=== PATIENT | male | born 1955 ===

== ENCOUNTER 2020-09-07 11:01 | Outpatient (REF) | payer MEDICARE, MEDICAID, SELFPAY | END 2020-09-07 11:02 | disposition home or self-care (01) | LOC: HO.LAB 11:01 | PROVIDERS: Visit Provider Internal Medicine | DX: Z20.828 Contact with and (suspected) exposure to other viral communicable diseases (principal) | CPT/HCPCS: C9803; U0003 ==

== ENCOUNTER 2020-09-21 13:38 | Outpatient (REF) | payer MEDICARE, MEDICAID, SELFPAY | END 2020-09-21 13:39 | disposition home or self-care (01) | LOC: HO.LAB 13:38 | PROVIDERS: Visit Provider Internal Medicine | DX: Z20.828 Contact with and (suspected) exposure to other viral communicable diseases (principal) | CPT/HCPCS: C9803; U0003 ==

== ENCOUNTER 2020-10-04 17:29 | Outpatient (REF) | payer MEDICARE, MEDICAID, SELFPAY | END 2020-10-04 17:30 | disposition home or self-care (01) | LOC: HO.LAB 17:29 | PROVIDERS: Visit Provider Internal Medicine | DX: Z20.822 Contact with and (suspected) exposure to COVID-19 (principal) | CPT/HCPCS: 36415; C9803; U0003 ==

== ENCOUNTER 2020-10-25 10:46 | Outpatient (REF) | payer MEDICARE, MEDICAID, SELFPAY | END 2020-10-25 10:47 | disposition home or self-care (01) | LOC: HO.LAB 10:46 | PROVIDERS: Visit Provider Internal Medicine | DX: Z20.822 Contact with and (suspected) exposure to COVID-19 (principal) | CPT/HCPCS: 36415; C9803; U0003; U0005 ==

== ENCOUNTER 2020-11-05 10:30 | Outpatient (REF) | payer MEDICARE, MEDICAID, SELFPAY | END 2020-11-05 10:31 | disposition home or self-care (01) | LOC: HO.LAB 10:30 | PROVIDERS: Visit Provider Internal Medicine | DX: Z20.822 Contact with and (suspected) exposure to COVID-19 (principal) | CPT/HCPCS: 36415; C9803; U0003; U0005 ==

== ENCOUNTER 2020-11-12 10:02 | Outpatient (REF) | payer MEDICARE, MEDICAID, SELFPAY | END 2020-11-12 10:03 | disposition home or self-care (01) | LOC: HO.LAB 10:02 | PROVIDERS: Visit Provider Internal Medicine | DX: Z20.822 Contact with and (suspected) exposure to COVID-19 (principal) | CPT/HCPCS: 36415; C9803; U0003; U0005 ==

== ENCOUNTER 2020-12-02 10:17 | Outpatient (REF) | payer MEDICARE, MEDICAID, SELFPAY | END 2020-12-02 10:18 | disposition home or self-care (01) | LOC: HO.LAB 10:17 | PROVIDERS: Visit Provider Internal Medicine | DX: Z20.822 Contact with and (suspected) exposure to COVID-19 (principal) | CPT/HCPCS: 36415; C9803; U0003; U0005 ==

== ENCOUNTER 2020-12-15 11:43 | Outpatient (REF) | payer MEDICARE, MEDICAID, SELFPAY | END 2020-12-15 11:44 | disposition home or self-care (01) | LOC: HO.LAB 11:43 | PROVIDERS: Visit Provider Internal Medicine | DX: Z20.822 Contact with and (suspected) exposure to COVID-19 (principal) | CPT/HCPCS: 36415; C9803; U0003; U0005 ==

== ENCOUNTER 2021-01-03 17:37 | Emergency (ER) | payer MEDICARE, MEDICAID, SELFPAY ==
--- NOTE | ~2021-01-03 | XR_ITS ---
EXAMINATION: XR CHEST CLINICAL INFORMATION: Epigastric pain. COMPARISON: 11/13/2019 chest radiographs. TECHNIQUE: Frontal view of the chest was obtained. FINDINGS: The lungs are clear. The heart and mediastinal structures are unremarkable. Post surgical changes are seen in the right clavicle without interval change. XR/XR chest 1V IMPRESSION: No acute cardiopulmonary process.
[2021-01-03 20:05] VITALS: BP 178/82; PULSE 51; RESP 18; TEMP 37.1; O2SAT 98; BMI 30.7
--- NOTE | 2021-01-03 20:09 | ECG_ITS ---
Test Reason : WEAKNESS Blood Pressure : / mmHG Vent. Rate : 059 BPM Atrial Rate : 059 BPM P-R Int : 128 ms QRS Dur : 092 ms QT Int : 404 ms P-R-T Axes : 045 -09 027 degrees QTc Int : 399 ms Sinus bradycardia Minimal voltage criteria for LVH, may be normal variant Borderline ECG When compared with ECG of 29-MAR-2005 19:44, Nonspecific T wave abnormality, improved in Lateral leads Referred By: Generic ED Physician Electronically Signed By:ANNA LANGLEY
[2021-01-03 22:12] VITALS: BP 162/68; PULSE 61; RESP 16; O2SAT 99
--- NOTE | 2021-01-03 22:30 | ED.GENADULT ---
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 Patient declined any exertional chest pain or exertional dyspnea. No dizziness, no weakness or numbness anywhere. Patient recently received the 1st dose of COVID vaccination in the right arm with no problem. Patient also complained of epigastric pain for the past week that he feels like acid reflux, patient currently has no symptoms. Related Data Allergies Allergy/AdvReac Type Severity Reaction Status Date / Time diphenhydramine Allergy Unknown UNKNOWN Verified 01/03/21 20:04 [From BENADRYL] penicillin G [PENICILLIN G] Allergy Unknown HIVES Verified 01/03/21 20:04 Review of Systems Review of Systems: All other systems are reviewed and are negative Constitutional: Reports as per HPI and Reports no additional constitutional complaints Eyes: Reports as per HPI and Reports no additional eye complaints Reports system reviewed and no additional complaints, except as documented Cardiovascular: Reports as per HPI and Reports no additional cardiovascular complaints Respiratory: Reports as per HPI and Reports no additional respiratory complaints Gastrointestinal: Reports as per HPI and Reports no additional gastrointestinal complaints Genitourinary: Reports no additional female genitourinary complaints Musculoskeletal: Reports no additional musculoskeletal complaints Skin/Breast: Reports system reviewed and no additional complaints, except as docu Psychiatric: Reports no additional psychiatric complaints Endocrine: Reports no additional endocrine complaints Hematologic/Lymphatic: Reports no additional hematologic/lymphatic complaints Allergic/Immunologic: Reports no additional allergic/immunologic complaints Reports system reviewed and no additional complaints, except as documented and Reports Abnormal speech present [facility] [place] Past Medical History Medical History (Updated 01/04/21 @ 00:29 by Chiki Freedman MD) Arthritis Asthma Fibromyalgia Gastritis Glaucoma Prostate cancer Social History Social History Alcohol intake: never Smoking Status: Never smoker Use of substances other than those prescribed or required for medical reasons: No Advance Directives: No Advance Directives Information Provided: Yes Physical Exam Vital Signs: Vital Signs: Last Vital Signs Temp 98.7 F 01/03/21 20:05 Pulse 61 01/03/21 22:12 Resp 16 01/03/21 22:12 BP 162/68 H 01/03/21 22:12 Pulse Ox 99 01/03/21 22:12 Body Mass Index 30.7 Vital signs have been reviewed as appeared to be correct. Blood pressure elevated. Heart rate normal. Respiration rate normal. Temperature normal. Oxygen saturation normal. Appearance: Alert. Oriented X3. No acute distress. Head: Normal external exam. Normocephalic. Atraumatic. No Kim signs noted. No raccoon eyes noted Eyes: PERRLA. EOMI. Conjunctiva and sclera normal. Eyelids normal. ENT: TM's Normal. Pharynx normal. Uvula midline. Moist mucous membranes. No trismus noted. No drooling noted. No muffled voice noted. Neck: Normal inspection. Neck supple. FROM. No adenopathy. Thyroid Normal. No meningeal signs. No neck mass noted. CVS: Normal heart rate and rhythm. Heart sound normal. No murmurs noted. Pulses normal throughout. Respiratory: No respiratory distress. Painless inspiration. Breath sounds normal. No wheezes/rales/rhonchi noted. Chest nontender. No accessory muscle usage noted or decreased air movement noted. Abdomen: Soft and nontender. Bowel sounds normal in all 4 quadrants. No distention noted. No organomegaly noted. No visible injury noted. Back: No CVA tenderness. Full range of motion noted. Skin: Skin warm and dry. Normal skin color. Normal skin turgor. No rashes/lesions/lacerations noted. Extremities: No lower extremity edema. Extremities exhibit normal range of motion. Extremities nontender. Neuro: Oriented X 3. No motor deficit. No sensory deficit. Reflexes normal. Medical Decision Making MDM Narrative Medical decision making narrative: 65-year-old male came in for evaluation of patient will lose his voice if he talks for a long time or in the loud tone. Patient has unremarkable neuro exam. Labs are unremarkable. Will discharge to follow-up with PCP. 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 Lab Data Lab results reviewed: Yes I reviewed the patient's lab results. Result diagrams: 01/03/21 22:25 01/03/21 22:25 Labs: Lab Results 01/03/21 01/03/21 01/03/21 Range/Units 22:25 22:25 22:25 WBC 4.3 L (4.8-10.8) X10*3/uL RBC 5.43 (4.60-5.80) X10*6/uL Hgb 16.3 (14.0-18.0) g/dl Hct 48.1 (42-52) % MCV 88.6 (80-98) fL MCH 30.0 (27.0-33.0) pg MCHC 33.9 (31.0-36.0) g/dl RDW 13.2 (11.0-16.0) % Plt Count 205 (160-400) X10*3/uL MPV 9.5 (9.4-12.4) fL Immature Gran % (Auto) 0.2 (0.0-0.4) % Neut % (Auto) 29.0 L (45-73) % Lymph % (Auto) 60.6 H (20-40) % [place] % (Auto) 7.9 (2-11) % Eos % (Auto) 1.6 (0-4) % Baso % (Auto) 0.7 (0-2) % Lymph # (Auto) 2.6 (1.2-4.9) X10*3/uL [place] # (Auto) 0.3 (0.1-1.2) X10*3/uL Eos # (Auto) 0.1 (0.0-0.4) X10*3/uL Baso # (Auto) 0.0 (0.0-0.2) X10*3/uL Abs Immat Gran (auto) 0.01 (0.00-0.03) X10*3/uL Absolute Neuts (auto) 1.3 L (2.0-8.3) X10*3/uL Absolute Nucleated RBC 0.000 (0.0-0.012) X10*3/uL Nucleated RBC % (auto) 0.0 (0.0-0.2) /100WBC Smear Tech's Comments VERIFIED Hold Blue Top SEE NOTE Sodium 140 (135-145) mmol/L Potassium 4.6 (3.3-5.1) mmol/L Chloride 104 (96-108) mmol/L Carbon Dioxide 28 (22-29) mmol/L Anion Gap 13 (12-20) BUN 19 H (9-16) mg/dL Creatinine 0.87 (0.5-1.4) mg/dL Estim Creat Clear Calc 83.2 Estimated GFR > 60 Random Glucose 91 (60-115) mg/dL Calcium 9.0 (8.4-10.2) mg/dL Total Bilirubin (0.0-1.0) mg/dL Direct Bilirubin (0.0-0.5) mg/dL AST (5-37) U/L ALT (0-40) U/L Alkaline Phosphatase (39-117) U/L Troponin I High Sens (<3.5-35.0) ng/L B-Natriuretic Peptide (<100) pg/mL Total Protein (6.5-8.0) g/dL Albumin (3.5-5.0) g/dL Lipase (8-78) U/L Coronavirus (PCR) (Negative) Influenza Type A (PCR) (Negative) Influenza Type B (PCR) (Negative) RSV RNA Qual (PCR) (Negative) 01/03/21 01/03/21 01/03/21 Range/Units 22:25 22:25 22:25 WBC (4.8-10.8) X10*3/uL RBC (4.60-5.80) X10*6/uL Hgb (14.0-18.0) g/dl Hct (42-52) % MCV (80-98) fL MCH (27.0-33.0) pg MCHC (31.0-36.0) g/dl RDW (11.0-16.0) % Plt Count (160-400) X10*3/uL MPV (9.4-12.4) fL Immature Gran % (Auto) (0.0-0.4) % Neut % (Auto) (45-73) % Lymph % (Auto) (20-40) % [place] % (Auto) (2-11) % Eos % (Auto) (0-4) % Baso % (Auto) (0-2) % Lymph # (Auto) (1.2-4.9) X10*3/uL [place] # (Auto) (0.1-1.2) X10*3/uL Eos # (Auto) (0.0-0.4) X10*3/uL Baso # (Auto) (0.0-0.2) X10*3/uL Abs Immat Gran (auto) (0.00-0.03) X10*3/uL Absolute Neuts (auto) (2.0-8.3) X10*3/uL Absolute Nucleated RBC (0.0-0.012) X10*3/uL Nucleated RBC % (auto) (0.0-0.2) /100WBC Smear Tech's Comments Hold Blue Top Sodium (135-145) mmol/L Potassium (3.3-5.1) mmol/L Chloride (96-108) mmol/L Carbon Dioxide (22-29) mmol/L Anion Gap (12-20) BUN (9-16) mg/dL Creatinine (0.5-1.4) mg/dL Estim Creat Clear Calc Estimated GFR Random Glucose (60-115) mg/dL Calcium (8.4-10.2) mg/dL Total Bilirubin 1.4 H (0.0-1.0) mg/dL Direct Bilirubin 0.5 (0.0-0.5) mg/dL AST 12 (5-37) U/L ALT 11 (0-40) U/L Alkaline Phosphatase 65 (39-117) U/L Troponin I High Sens < 3.5 (<3.5-35.0) ng/L B-Natriuretic Peptide 32 (<100) pg/mL Total Protein 7.2 (6.5-8.0) g/dL Albumin 4.3 (3.5-5.0) g/dL Lipase 106 H (8-78) U/L Coronavirus (PCR) NEGATIVE (Negative) Influenza Type A (PCR) NEGATIVE (Negative) Influenza Type B (PCR) NEGATIVE (Negative) RSV RNA Qual (PCR) NEGATIVE (Negative) Imaging Data Chest x-ray: Radiologist's impression: No acute cardiopulmonary process. ECG Data Interpretation: Sinus bradycardia at 59 beats per minutes, LVH, normal intervals, nonspecific flattening of T-wave. Discharge Plan Discharge Clinical Impression: Loss of voice Patient Disposition: Home, Self-Care Instructions: Dyspnea (ED) Referrals: Physician,Unknown [Primary Care Provider] - 2 days
[2021-01-03 22:38] LABS: Basophils Percent Auto 0.7 % (0-2); Eosinophils Absolute Auto 0.1 X10*3/uL (0.0-0.4); Eosinophils Percent Auto 1.6 % (0-4); Hematocrit 48.1 % (42-52); Hemoglobin 16.3 g/dl (14.0-18.0); Imm Gran Abs Auto 0.01 X10*3/uL (0.00-0.03); Imm Gran Pct Auto 0.2 % (0.0-0.4); Lymphocytes Absolute Auto 2.6 X10*3/uL (1.2-4.9); Lymphocytes Percent Auto 60.6 % (20-40); MANUAL DIFF FLAG SCAN; Mean Corpuscular HGB Conc 33.9 g/dl (31.0-36.0); Mean Corpuscular Volume 88.6 fL (80-98); Mean Platelet Volume 9.5 fL (9.4-12.4); Monocytes Absolute Auto 0.3 X10*3/uL (0.1-1.2); Monocytes Percent Auto 7.9 % (2-11); Neutrophils Absolute Auto 1.3 X10*3/uL (2.0-8.3); Platelet Count 205 X10*3/uL (160-400); Red Blood Count 5.43 X10*6/uL (4.60-5.80); Red Cell Distribution Width 13.2 % (11.0-16.0); SCAN SMEAR FLAG 1; White Blood Count 4.3 X10*3/uL (4.8-10.8)
--- NOTE | 2021-01-03 23:16 | PC.NURSE ---
Pt is currently resting in bed. Pt denies complaints and all symptoms. VSS, skin w/p/d, ambulates w/ steady and mitchell gait, no apparent distress is noted. Pending lab results.
[2021-01-03 23:17] LABS: Influenza A PCR NEGATIVE (Negative); Influenza B PCR NEGATIVE (Negative); Resp Syncy Virus RNA Qual PCR NEGATIVE (Negative); SARS COV2 PCR INHOUSE NEGATIVE (Negative)
[2021-01-03 23:26] LABS: SLIDE REVIEW VERIFIED
[2021-01-03 23:56] LABS: Anion Gap 13 (12-20); Blood Urea Nitrogen 19 mg/dL (9-16); Carbon Dioxide 28 mmol/L (22-29); Chloride 104 mmol/L (96-108); Creatinine Clr Calc Pharmacy 83.2; Estimated Glomerular Filt Rate > 60; Glucose Random 91 mg/dL (60-115); Potassium 4.6 mmol/L (3.3-5.1); Sodium 140 mmol/L (135-145)
[2021-01-03 23:59] LABS: Alanine Aminotransferase 11 U/L (0-40); Albumin Level 4.3 g/dL (3.5-5.0); Alkaline Phosphatase 65 U/L (39-117); Aspartate Amino Transferase 12 U/L (5-37); Bilirubin Direct 0.5 mg/dL (0.0-0.5); Bilirubin Total 1.4 mg/dL (0.0-1.0); Lipase 106 U/L (8-78); Total Protein 7.2 g/dL (6.5-8.0)
[2021-01-04 00:06] LABS: Troponin-I High Sensitivity < 3.5 ng/L (<3.5-35.0)
[2021-01-04 00:18] LABS: B Type Natriuretic Peptide 32 pg/mL (<100)
[2021-01-04 00:31] VITALS: BP 141/86; PULSE 61; RESP 16; O2SAT 97
[2021-01-04] MEDS: Acetaminophen 325 MG TABLET 650 MG PO (00:35)
== END 2021-01-04 00:39 | disposition home or self-care (01) ==
PROVIDERS: Emergency Provider Emergency Medicine
DX: R49.1 Aphonia (principal); Z20.822 Contact with and (suspected) exposure to COVID-19; R53.1 Weakness; R10.13 Epigastric pain; J45.909 Unspecified asthma, uncomplicated; Z85.46 Personal history of malignant neoplasm of prostate
CPT/HCPCS: 0241U; 36415; 71045; 80048; 80076; 83690; 83880; 84484; 85025; 93005; 99283; 99284

== ENCOUNTER 2021-01-06 13:18 | Outpatient (REF) | payer MEDICARE, MEDICAID, SELFPAY ==
[2021-01-06 14:13] LABS: COVID-19 Test Negative (Negative)
== END 2021-01-06 13:19 | disposition home or self-care (01) ==
LOC: HO.LAB 13:18
PROVIDERS: Visit Provider Internal Medicine
DX: Z20.822 Contact with and (suspected) exposure to COVID-19 (principal)
CPT/HCPCS: 36415; 87635; C9803

== ENCOUNTER 2021-01-10 08:21 | Outpatient (REF) | payer MEDICARE, MEDICAID, SELFPAY ==
[2021-01-10 08:57] LABS: COVID-19 Test Negative (Negative); IDNOW Serial# 55D5AD1C
== END 2021-01-10 08:22 | disposition home or self-care (01) ==
LOC: HO.LAB 08:21
PROVIDERS: Visit Provider Internal Medicine
DX: Z20.822 Contact with and (suspected) exposure to COVID-19 (principal)
CPT/HCPCS: 36415; 87635; C9803

== ENCOUNTER 2021-01-18 11:50 | Outpatient (REF) | payer MEDICARE, MEDICAID, SELFPAY ==
[2021-01-18 12:07] LABS: COVID-19 Test Negative (Negative)
== END 2021-01-18 11:51 | disposition home or self-care (01) ==
LOC: HO.LAB 11:50
PROVIDERS: Visit Provider Internal Medicine
DX: Z20.822 Contact with and (suspected) exposure to COVID-19 (principal)
CPT/HCPCS: 36415; 87635; C9803

== ENCOUNTER 2021-01-24 10:32 | Outpatient (REF) | payer MEDICARE, MEDICAID, SELFPAY | END 2021-01-24 10:33 | disposition home or self-care (01) | LOC: HO.LAB 10:32 | PROVIDERS: Visit Provider Internal Medicine | DX: Z20.822 Contact with and (suspected) exposure to COVID-19 (principal) | CPT/HCPCS: C9803; U0003; U0005 ==

== ENCOUNTER 2021-02-17 08:27 | Outpatient (REF) | payer MEDICARE, MEDICAID, SELFPAY ==
[2021-02-17 08:44] LABS: COVID-19 Test Negative (Negative); IDNOW Serial# 55D5AD1C
== END 2021-02-17 08:28 | disposition home or self-care (01) ==
LOC: HO.LAB 08:27
PROVIDERS: Visit Provider Internal Medicine
DX: Z20.822 Contact with and (suspected) exposure to COVID-19 (principal)
CPT/HCPCS: 36415; 87635; C9803

== ENCOUNTER 2021-02-22 13:12 | Outpatient (REF) | payer MEDICARE, MEDICAID, SELFPAY ==
[2021-02-22 13:34] LABS: COVID-19 Test Negative (Negative)
== END 2021-02-22 13:13 | disposition home or self-care (01) ==
LOC: HO.LAB 13:12
PROVIDERS: Visit Provider Internal Medicine
DX: Z20.822 Contact with and (suspected) exposure to COVID-19 (principal)
CPT/HCPCS: 36415; 87635; C9803

== ENCOUNTER 2021-05-13 11:41 | Outpatient (REF) | payer MEDICARE, MEDICAID, SELFPAY | END 2021-05-13 11:42 | disposition home or self-care (01) | LOC: HO.LAB 11:41 | PROVIDERS: Visit Provider Internal Medicine | DX: Z20.822 Contact with and (suspected) exposure to COVID-19 (principal) | CPT/HCPCS: C9803; U0003; U0005 ==

== ENCOUNTER 2021-07-01 11:17 | Outpatient (REF) | payer MEDICARE, MEDICAID, SELFPAY ==
[2021-07-01 12:11] LABS: COVID-19 Test Negative (Negative)
== END 2021-07-01 11:18 | disposition home or self-care (01) ==
LOC: HO.LAB 11:17
PROVIDERS: Visit Provider Internal Medicine
DX: Z20.822 Contact with and (suspected) exposure to COVID-19 (principal)
CPT/HCPCS: 36415; 87635; C9803

== ENCOUNTER 2021-07-18 11:31 | Outpatient (REF) | payer MEDICARE, MEDICAID, SELFPAY ==
[2021-07-18 12:11] LABS: COVID-19 Test Negative (Negative)
== END 2021-07-18 11:32 | disposition home or self-care (01) ==
LOC: HO.LAB 11:31
PROVIDERS: Visit Provider Internal Medicine
DX: Z20.822 Contact with and (suspected) exposure to COVID-19 (principal)
CPT/HCPCS: 36415; 87635; C9803

== ENCOUNTER 2021-08-04 14:41 | Outpatient (REF) | payer MEDICARE, MEDICAID, SELFPAY | END 2021-08-04 14:42 | disposition home or self-care (01) | LOC: HO.LAB 14:41 | PROVIDERS: PCP Internal Medicine Geriatric Medicine; Visit Provider Internal Medicine | DX: Z20.822 Contact with and (suspected) exposure to COVID-19 (principal) | CPT/HCPCS: C9803; U0003; U0005 ==

== ENCOUNTER 2021-08-05 08:11 | Emergency (ER) | payer MEDICARE, MEDICAID, SELFPAY ==
[2021-08-05 08:18] VITALS: BP 155/91; PULSE 75; RESP 16; TEMP 36.7; O2SAT 99; BMI 30.1
[2021-08-05 08:45] VITALS: BP 131/75; PULSE 73; RESP 14; TEMP 36.8; O2SAT 99
--- NOTE | 2021-08-05 08:46 | ED.GENADULT ---
HPI - General Adult General Chief complaint: General Medical Stated complaint: hbp Time Seen by Provider: 08/05/21 08:42 History of Present Illness HPI narrative: Patient is 65-year-old male presented today worry about his blood pressure being elevated. Patient took the blood pressure this morning was 150/107. Baseline is on amlodipine. Patient denies any fever chills. Complaining of mild headache from time to time. There is no change in vision is no focal weakness. He has no headache at this time. Patient denies any chest pain any shortness of breath any nausea any vomiting any focal weakness. He is from home. Related Data Allergies Allergy/AdvReac Type Severity Reaction Status Date / Time diphenhydramine Allergy Unknown UNKNOWN Verified 01/03/21 20:04 [From BENADRYL] penicillin G [PENICILLIN G] Allergy Unknown HIVES Verified 01/03/21 20:04 Review of Systems Review of Systems: No chest pain or shortness of breath or dizziness Yes all other systems are reviewed and are negative PMFSH Past Medical History Attestation statement: The following information was validated with the patient. Medical History Arthritis Asthma Fibromyalgia Gastritis Glaucoma Prostate cancer Social History Social History Alcohol intake: never Patient Tobacco Use Status: Never used Tobacco Use of substances other than those prescribed or required for medical reasons: No Advance Directives: No Physical Exam Vital Signs: Vital Signs: Last Vital Signs Temp 98.0 F 08/05/21 08:18 Pulse 75 08/05/21 08:18 Resp 16 08/05/21 08:18 BP 155/91 H 08/05/21 08:18 Pulse Ox 99 08/05/21 08:18 Body Mass Index 30.1 Appearance: Alert. Oriented X3. No acute distress. Eyes: Pupils equal, round and reactive to light. ENT: Pharynx normal. Neck: Normal inspection. Neck supple. No lymph nodes noted. No crepitus CVS: Normal heart rate and rhythm. Pulses normal. Normal S1 and S2 Respiratory: No respiratory distress. Breath sounds normal. No Wheezing. No rales Abdomen: Soft and nontender. No rigidity. No distention. good BS x4 Skin: Skin warm and dry. Normal skin color. Normal skin turgor. Extremities: No lower extremity edema. Neurovascular intact to all extremities. No Lacerations. No Rash Neuro: Oriented X 3. No motor deficit. No sensory deficit. Moving all extermities. No slurred speech Medical Decision Making MDM Narrative Medical decision making narrative: Well-appearing no acute distress. Lungs clear. Patient in stable condition. Blood pressure is normal. Is 155/91 on recheck was 147/87. Patient has no headache. Patient reassured and told to follow-up with his primary physician on an outpatient basis and get blood pressure recheck. In stable condition. Discharge Plan Discharge Clinical Impression: Hypertension Patient Disposition: Home, Self-Care Instructions: Hypertension (ED) Referrals: Name,MD Gwyn [Primary Care Provider] - 2 days
[2021-08-05 08:48] VITALS: BP 126/75; PULSE 69
--- NOTE | 2021-08-05 08:51 | PC.NURSE ---
pt reports that this morning when he took his blood pressure the bottom number was 105 . pt reports that he only took his b/p once. he is on Amlodipine and usually take it in the morning but did not take it this morning because he was concerned. Pt's b/p in ed 126/75. he denies sob/headache/dizziness/chest pain. no pain reported. no other complaints. Pt seen by Dr. Dozier and is medically cleared for discharge. pt alert and oriented, vss.
== END 2021-08-05 09:05 | disposition home or self-care (01) ==
PROVIDERS: Emergency Provider Emergency Medicine Emergency Medical Services; PCP Internal Medicine Geriatric Medicine
DX: I10 Essential (primary) hypertension (principal); J45.909 Unspecified asthma, uncomplicated
CPT/HCPCS: 99283

== ENCOUNTER 2021-08-16 15:27 | Emergency (ER) | payer MEDICARE, MEDICAID, SELFPAY ==
--- NOTE | ~2021-08-16 | CT_ITS ---
EXAMINATION: CT ANGIOGRAM OF THE CHEST WITH AND WITHOUT CONTRAST (CT PULMONARY ANGIOGRAM FOR PE) CLINICAL INFORMATION: Reason for Exam cp, + dimer COMPARISON: None TECHNIQUE: Prior to contrast administration, noncontrast localization images were obtained. Subsequently, multidetector volumetric imaging was performed from the thoracic inlet to below the diaphragms following the administration of 66 mL Omnipaque 350 intravenous contrast. No contrast reaction reported Sagittal, coronal, and MIP oblique sagittal reformatted images were obtained on the CT workstation, uploaded to PACS, and reviewed. This CT examination was performed using dose optimization techniques as appropriate, variously including the following: *Automated exposure control *Adjustment of mA and/or kV according to patient size (this includes techniques or standardized protocols for targeted exams where dose is matched to indication/reason for exam; i.e. extremities or head) *Use of iterative reconstruction technique Total exam dose-length 330 product 3:30 mGy-cm FINDINGS: QUALITY OF STUDY/CONTRAST BOLUS: Slightly less than optimal and significant motion artifact is present PULMONARY ARTERIES: No central or large segmental pulmonary emboli. THORACIC AORTA: No aneurysm or dissection. LUNG: No focal consolidation, nodules or masses. Left basilar atelectasis is present. PLEURA: No pleural effusion or pneumothorax. MEDIASTINUM: There is mild cardiac enlargement. No pericardial effusion. No hilar or mediastinal lymphadenopathy. No evidence of septal bowing or right heart strain. CHEST WALL/AXILLA: No axillary or internal mammary lymphadenopathy. OSSEOUS STRUCTURES: No acute or suspicious osseous abnormality. UPPER ABDOMEN: Unremarkable. No reflux of contrast into the hepatic veins to suggest elevated right heart pressures. CT/CT angio chest PE protocol IMPRESSION: No definite evidence of pulmonary emboli. VTE: negative
--- NOTE | ~2021-08-16 | XR_ITS ---
EXAMINATION: XR CHEST CLINICAL INFORMATION: Chest pain COMPARISON: 01/03/2021 TECHNIQUE: 2 views of the chest were obtained. FINDINGS: Normal heart size. Tortuous thoracic aorta. Adequate expansion of the lungs. No focal consolidation. No pleural effusion or pneumothorax. No acute osseous abnormality. Degenerative changes of the spine and bilateral shoulders. There is postsurgical change of the right clavicle, stable since prior study. XR/XR chest 2V IMPRESSION: No acute disease within the chest.
--- NOTE | 2021-08-16 15:29 | ECG_ITS ---
Test Reason : chest pain Blood Pressure : / mmHG Vent. Rate : 082 BPM Atrial Rate : 082 BPM P-R Int : 134 ms QRS Dur : 090 ms QT Int : 384 ms P-R-T Axes : 041 -24 036 degrees QTc Int : 448 ms Normal sinus rhythm Left axis deviation Nonspecific T wave abnormality RSR' or QR pattern in V1 suggests right ventricular conduction delay Abnormal ECG When compared with ECG of 03-JAN-2021 20:39, Heart rate has increased Referred By: Generic ED Physician Electronically Signed By:REMINGTON CLAIRE MD
[2021-08-16 16:57] VITALS: BP 145/87; PULSE 68; RESP 18; TEMP 36.8; O2SAT 98; BMI 29.4
--- NOTE | 2021-08-16 16:59 | ED.CHESTPAIN ---
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 Medical History Arthritis Asthma Fibromyalgia Gastritis Glaucoma Prostate cancer Social History Social History Alcohol intake: never Patient Tobacco Use Status: Never used Tobacco Physical Exam Vital Signs: Vital Signs: Last Vital Signs Temp 98.2 F 08/16/21 16:57 Pulse 68 08/16/21 16:57 Resp 18 08/16/21 16:57 BP 145/87 H 08/16/21 16:57 Pulse Ox 98 08/16/21 16:57 Body Mass Index 29.4 Appearance: Alert. Oriented X3. No acute distress. Eyes: Pupils equal, round and reactive to light. ENT: Pharynx normal. dried bilateral nares Neck: Normal inspection. Neck supple. CVS: Normal heart rate and rhythm. Pulses normal. Chest: ttp along sternum reproduces pain Respiratory: No respiratory distress. Breath sounds normal. Abdomen: Soft and nontender. Skin: Skin warm and dry. Normal skin color. Normal skin turgor. Extremities: No lower extremity edema. No calf ttp Neuro: Oriented X 3. No motor deficit. No sensory deficit. Course Course Course Narrative: THIS IS A RAPID MEDICAL EXAM DEFERRED ADDITIONAL HPI, ROS, PE TO PRIMARY PROVIDER: 65 yo male with hx of HTN, asthma, prostate cancer here with chest pain for 2 days - aching in center of chest that radiates to the back he has no associated symptoms other than dizziness, moving and touching it makes his pain worse. He also notes he has a runny nose. He is vaccinated. No prior cardiac issues in the past. At this time labs, EKG, troponin ordered, his chest pain is atypical he has no hypoxia/tachycardia/signs of DVT to suggest PE MDM - Chest Pain Lab Data Result diagrams: 08/16/21 19:04 08/16/21 19:04 Labs: Lab Results 08/16/21 08/16/21 08/16/21 Range/Units 19:04 19:04 19:04 WBC 3.6 L (4.8-10.8) X10*3/uL RBC 4.97 (4.60-5.80) X10*6/uL Hgb 15.6 (14.0-18.0) g/dl Hct 43.2 (42.0-52.0) % MCV 86.9 (80.0-98.0) fL MCH 31.4 (27.0-33.0) pg MCHC 36.1 H (31.0-36.0) g/dl RDW 12.8 (11.0-16.0) % Plt Count 193 (160-400) X10*3/uL MPV 9.2 L (9.4-12.4) fL Immature Gran % (Auto) 0.3 (0.0-0.4) % Neut % (Auto) 33.9 L (45-73) % Lymph % (Auto) 50.8 H (20-40) % [place] % (Auto) 8.6 (2-11) % Eos % (Auto) 5.6 H (0-4) % Baso % (Auto) 0.8 (0-2) % Lymph # (Auto) 1.8 (1.2-4.9) X10*3/uL [place] # (Auto) 0.3 (0.1-1.2) X10*3/uL Eos # (Auto) 0.2 (0.0-0.4) X10*3/uL Baso # (Auto) 0.0 (0.0-0.2) X10*3/uL Abs Immat Gran (auto) 0.01 (0.00-0.03) X10*3/uL Absolute Neuts (auto) 1.2 L (2.0-8.3) x10*3/uL Absolute Nucleated RBC 0.000 (0.0-0.012) X10*3/uL Nucleated RBC % (auto) 0.0 (0.0-0.2) /100WBC D-Dimer High Sensitivty NG/ML Sodium 142 (135-145) mmol/L Potassium 4.1 (3.3-5.1) mmol/L Chloride 106 (96-108) mmol/L Carbon Dioxide 29 (22-29) mmol/L Anion Gap 11 L (12-20) BUN 16 (9-16) mg/dL Creatinine 0.77 (0.5-1.4) mg/dL Estim Creat Clear Calc 92.1 Estimated GFR > 60 Random Glucose 99 (60-115) mg/dL Calcium 9.1 (8.4-10.2) mg/dL Total Bilirubin 1.1 H (0.0-1.0) mg/dL Direct Bilirubin 0.5 (0.0-0.5) mg/dL AST 15 (5-37) U/L ALT 11 (0-40) U/L Alkaline Phosphatase 56 (39-117) U/L Troponin I High Sens 4.5 (<3.5-35.0) ng/L Total Protein 7.0 (6.5-8.0) g/dL Albumin 4.2 (3.5-5.0) g/dL COVID-19 (ROHIT) (Negative) COVID-19 Clin Com 08/16/21 08/16/21 Range/Units 19:04 19:04 WBC (4.8-10.8) X10*3/uL RBC (4.60-5.80) X10*6/uL Hgb (14.0-18.0) g/dl Hct (42.0-52.0) % MCV (80.0-98.0) fL MCH (27.0-33.0) pg MCHC (31.0-36.0) g/dl RDW (11.0-16.0) % Plt Count (160-400) X10*3/uL MPV (9.4-12.4) fL Immature Gran % (Auto) (0.0-0.4) % Neut % (Auto) (45-73) % Lymph % (Auto) (20-40) % [place] % (Auto) (2-11) % Eos % (Auto) (0-4) % Baso % (Auto) (0-2) % Lymph # (Auto) (1.2-4.9) X10*3/uL [place] # (Auto) (0.1-1.2) X10*3/uL Eos # (Auto) (0.0-0.4) X10*3/uL Baso # (Auto) (0.0-0.2) X10*3/uL Abs Immat Gran (auto) (0.00-0.03) X10*3/uL Absolute Neuts (auto) (2.0-8.3) x10*3/uL Absolute Nucleated RBC (0.0-0.012) X10*3/uL Nucleated RBC % (auto) (0.0-0.2) /100WBC D-Dimer High Sensitivty 370 NG/ML Sodium (135-145) mmol/L Potassium (3.3-5.1) mmol/L Chloride (96-108) mmol/L Carbon Dioxide (22-29) mmol/L Anion Gap (12-20) BUN (9-16) mg/dL Creatinine (0.5-1.4) mg/dL Estim Creat Clear Calc Estimated GFR Random Glucose (60-115) mg/dL Calcium (8.4-10.2) mg/dL Total Bilirubin (0.0-1.0) mg/dL Direct Bilirubin (0.0-0.5) mg/dL AST (5-37) U/L ALT (0-40) U/L Alkaline Phosphatase (39-117) U/L Troponin I High Sens (<3.5-35.0) ng/L Total Protein (6.5-8.0) g/dL Albumin (3.5-5.0) g/dL COVID-19 (ROHIT) Negative (Negative) COVID-19 Clin Com See Note ECG Data ECG #1: Attestation: I personally reviewed and interpreted this ECG as follows: ECG interpretation date: 08/16/21 ECG interpretation time: 17:07 Interpretation: Rate: 82 Rhythm: NSR [place]: left Normal P waves. Normal SINDHU. Normal QRS complex. ST T wave : no VITOR, V1-V4 inverted t waves qTC: normal prior studies: changed from prior The study has been interpreted contemporaneously by me. . Discharge Plan Discharge Clinical Impression: Chest pain
[2021-08-16 19:09] LABS: MANUAL DIFF FLAG NO
[2021-08-16 19:17] LABS: D Dimer High Sensitivity 370 NG/ML
[2021-08-16 19:24] LABS: COVID-19 Test Negative (Negative)
[2021-08-16 19:26] LABS: Basophils Percent Auto 0.8 % (0-2); Eosinophils Absolute Auto 0.2 X10*3/uL (0.0-0.4); Eosinophils Percent Auto 5.6 % (0-4); Hematocrit 43.2 % (42.0-52.0); Hemoglobin 15.6 g/dl (14.0-18.0); Imm Gran Abs Auto 0.01 X10*3/uL (0.00-0.03); Imm Gran Pct Auto 0.3 % (0.0-0.4); Lymphocytes Absolute Auto 1.8 X10*3/uL (1.2-4.9); Lymphocytes Percent Auto 50.8 % (20-40); Mean Corpuscular HGB Conc 36.1 g/dl (31.0-36.0); Mean Corpuscular Hemoglobin 31.4 pg (27.0-33.0); Mean Corpuscular Volume 86.9 fL (80.0-98.0); Mean Platelet Volume 9.2 fL (9.4-12.4); Monocytes Absolute Auto 0.3 X10*3/uL (0.1-1.2); Monocytes Percent Auto 8.6 % (2-11); Neutrophils Absolute Auto 1.2 x10*3/uL (2.0-8.3); Neutrophils Percent Auto 33.9 % (45-73); Platelet Count 193 X10*3/uL (160-400); Red Blood Count 4.97 X10*6/uL (4.60-5.80); Red Cell Distribution Width 12.8 % (11.0-16.0); White Blood Count 3.6 X10*3/uL (4.8-10.8)
[2021-08-16 19:29] LABS: Troponin-I High Sensitivity 4.5 ng/L (<3.5-35.0)
[2021-08-16 19:31] LABS: Alanine Aminotransferase 11 U/L (0-40); Albumin Level 4.2 g/dL (3.5-5.0); Alkaline Phosphatase 56 U/L (39-117); Anion Gap 11 (12-20); Aspartate Amino Transferase 15 U/L (5-37); Bilirubin Direct 0.5 mg/dL (0.0-0.5); Bilirubin Total 1.1 mg/dL (0.0-1.0); Blood Urea Nitrogen 16 mg/dL (9-16); Calcium 9.1 mg/dL (8.4-10.2); Carbon Dioxide 29 mmol/L (22-29); Chloride 106 mmol/L (96-108); Creatinine Clr Calc Pharmacy 92.1; Estimated Glomerular Filt Rate > 60; Glucose Random 99 mg/dL (60-115); Potassium 4.1 mmol/L (3.3-5.1); Sodium 142 mmol/L (135-145)
--- NOTE | 2021-08-16 22:05 | ED_ITS ---
HPI - Chest Pain General Chief Complaint: Chest Pain Stated Complaint: chest pain and high blood pressure Time Seen by Provider: 08/16/21 16:59 Source: patient, family and lang interpreter Mode of arrival: ambulatory Limitations: no limitations History of Present Illness HPI narrative: 65-year-old male coming in with complaints of chest pain for the last 3 days. The patient has a past medical history of hypertension and a prior here with complaints of chest achiness that radiates to the back with no shortness of breath, cough fevers, chills, leg swelling or pain. Pain is worsened with deep breathing and or movement. Patient is also complaining of feeling anxious over the last few days. Tearful during my exam and is concerned that he has been increasingly anxious as well. No sick contacts or recent travel. Related Data Previous Rx's Medication Instructions Recorded lorazepam 0.5 mg tablet 0.5 mg PO BID PRN #8 tab 08/17/21 Allergies Allergy/AdvReac Type Severity Reaction Status Date / Time diphenhydramine Allergy Unknown UNKNOWN Verified 08/16/21 16:57 [From BENADRYL] penicillin G [PENICILLIN G] Allergy Unknown HIVES Verified 08/16/21 16:57 Review of Systems Review of Systems: Yes all other systems are reviewed and are negative Constitutional: Constitutional: Reports no additional constitutional complaints, Denies body ache(s), Denies chills, Denies fever(s), Denies headache(s) and Denies weakness Eyes: Eyes: Reports no additional eye complaints and Denies change in vision ENT: Reports system reviewed and no additional complaints, except as documented, Denies dizziness, Denies headache(s), Denies nasal congestion, Denies nasal discharge and Denies neck pain Cardiovascular: Cardiovascular: Reports no additional cardiovascular complaints, Reports chest pain, Denies leg edema and Denies dyspnea Respiratory: Respiratory: Reports no additional respiratory complaints, Denies cough and Denies dyspnea Gastrointestinal: Gastrointestinal: Reports no additional gastrointestinal complaints, Denies abdominal pain, Denies diarrhea, Denies nausea and Denies vomiting Genitourinary: Genitourinary: Denies urinary incontinence Musculoskeletal: Musculoskeletal: Reports no additional musculoskeletal comp laints, Reports back pain, Denies arthralgias, Denies joint swelling, Denies neck pain, Denies numbness and Denies tingling Integumentary/Breasts: Skin/Breast: Reports system reviewed and no additional complaints, except as docu and Denies rash Neurologic: Reports system reviewed and no additional complaints, except as documented, Denies Abnormal speech present, Denies dizziness, Denies headache(s), Denies numbness, Denies tingling and Denies weakness PMF Past Medical History Attestation statement: The following information was validated with the patient. Source: old records reviewed and nursing notes reviewed Medical History Arthritis Asthma Fibromyalgia Gastritis Glaucoma Prostate cancer Social History Social History Alcohol intake: never Patient Tobacco Use Status: Never used Tobacco Advance Directives: No Physical Exam Vital Signs: Vital Signs: Last Vital Signs Temp 98.2 F 08/16/21 16:57 Pulse 82 08/16/21 23:35 Resp 16 08/16/21 23:35 BP 136/87 08/16/21 23:35 Pulse Ox 94 08/16/21 23:35 Body Mass Index 29.4 Const: Other: Patient tearful crying General: cooperative, healthy appearing, comfortable and no acute distress Orientation/consciousness: patient oriented x3 Limitations: no limitations HENMT: Head: Yes normal to inspection Ears: hearing grossly normal bilaterally General nose exam: Normal external nose present Face and sinus: Yes normal facial exam Mouth: Normal oral and palatal mucosa present Throat: Yes posterior oropharynx normal Eyes: General: appearance normal, both eyes and all related structures Pupils: Equal, round and reactive pupils present Neck: Neck: Yes normal visual inspection Chest: Other: Central chest tender to palpate, entire upper tenter frame back tender to palpate Chest palpation & inspection: normal inspection of the chest Resp: Effort & Inspection: normal respiratory effort Auscultation: clear to auscultation bilaterally Cardio: Rate: regular rate Rhythm: regular rhythm Peripheral pulses: Peripheral pulses 2+ throughout GI: Inspection: Yes normal to inspection Palpation (GI): Soft to palpation and nontender Auscultation: normal bowel sounds Back/Spine/Pelvis: Thoracic/Lumbar Spine: thoracic and lumbar spine normal to inspection Skin: General skin exam: no rashes or lesions noted Neuro: General: patient oriented x3, no focal motor deficits and normal sensation to monofilament Cranial nerves: Yes Equal, round and reactive pupils present Cognition (Neuro): normal cognition Speech: No Abnormal speech present Gait exam (Neuro): Normal gait present Motor exam (neuro): 5/5 motor strength present throughout Extrem: General: Yes normal to inspection, Yes no pedal edema and Yes no calf tenderness Course Course Course Narrative: 65-year-old male here with complaints of back pain with radiation to the chest for several days with no other symptoms. Patient had labs at triage are unremarkable including a negative troponin. His D-dimer was mildly elevated. His chest x-ray is negative. His EKG shows some nonspecific ST changes. Will need a repeat troponin, CT of chest to rule out pulmonary embolism. Will also provide analgesia and Ativan for anxiety 0020-troponin x2 flat, CT of the chest negative for PE. Patient feeling improved after receiving a dose of Toradol and Ativan here in the emergency room. Atypical for ACS. 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 Recommended follow-up outpatient with electrical maintenance mechanic and primary care doctor. Reviewed worrisome signs and symptoms of when to return to the emergency department. Comfortable discharge home. MDM - Chest Pain MDM Narrative Medical decision making narrative: ACS, PE Medical Records Data Attestation: I reviewed the patient's medical records. Lab Data Attestation: I reviewed the patient's lab results. Result diagrams: 08/16/21 19:04 08/16/21 19:04 Labs: Lab Results 08/16/21 08/16/21 08/16/21 Range/Units 19:04 19:04 19:04 WBC 3.6 L (4.8-10.8) X10*3/uL RBC 4.97 (4.60-5.80) X10*6/uL Hgb 15.6 (14.0-18.0) g/dl Hct 43.2 (42.0-52.0) % MCV 86.9 (80.0-98.0) fL MCH 31.4 (27.0-33.0) pg MCHC 36.1 H (31.0-36.0) g/dl RDW 12.8 (11.0-16.0) % Plt Count 193 (160-400) X10*3/uL MPV 9.2 L (9.4-12.4) fL Immature Gran % (Auto) 0.3 (0.0-0.4) % Neut % (Auto) 33.9 L (45-73) % Lymph % (Auto) 50.8 H (20-40) % [place] % (Auto) 8.6 (2-11) % Eos % (Auto) 5.6 H (0-4) % Baso % (Auto) 0.8 (0-2) % Lymph # (Auto) 1.8 (1.2-4.9) X10*3/uL [place] # (Auto) 0.3 (0.1-1.2) X10*3/uL Eos # (Auto) 0.2 (0.0-0.4) X10*3/uL Baso # (Auto) 0.0 (0.0-0.2) X10*3/uL Abs Immat Gran (auto) 0.01 (0.00-0.03) X10*3/uL Absolute Neuts (auto) 1.2 L (2.0-8.3) x10*3/uL Absolute Nucleated RBC 0.000 (0.0-0.012) X10*3/uL Nucleated RBC % (auto) 0.0 (0.0-0.2) /100WBC D-Dimer High Sensitivty NG/ML Sodium 142 (135-145) mmol/L Potassium 4.1 (3.3-5.1) mmol/L Chloride 106 (96-108) mmol/L Carbon Dioxide 29 (22-29) mmol/L Anion Gap 11 L (12-20) BUN 16 (9-16) mg/dL Creatinine 0.77 (0.5-1.4) mg/dL Estim Creat Clear Calc 92.1 Estimated GFR > 60 Random Glucose 99 (60-115) mg/dL Calcium 9.1 (8.4-10.2) mg/dL Total Bilirubin 1.1 H (0.0-1.0) mg/dL Direct Bilirubin 0.5 (0.0-0.5) mg/dL AST 15 (5-37) U/L ALT 11 (0-40) U/L Alkaline Phosphatase 56 (39-117) U/L Troponin I High Sens 4.5 (<3.5-35.0) ng/L Total Protein 7.0 (6.5-8.0) g/dL Albumin 4.2 (3.5-5.0) g/dL COVID-19 ([facility]) (Negative) COVID-19 Clin Com 08/16/21 08/16/21 08/16/21 Range/Units 19:04 19:04 22:10 WBC (4.8-10.8) X10*3/uL RBC (4.60-5.80) X10*6/uL Hgb (14.0-18.0) g/dl Hct (42.0-52.0) % MCV (80.0-98.0) fL MCH (27.0-33.0) pg MCHC (31.0-36.0) g/dl RDW (11.0-16.0) % Plt Count (160-400) X10*3/uL MPV (9.4-12.4) fL Immature Gran % (Auto) (0.0-0.4) % Neut % (Auto) (45-73) % Lymph % (Auto) (20-40) % [place] % (Auto) (2-11) % Eos % (Auto) (0-4) % Baso % (Auto) (0-2) % Lymph # (Auto) (1.2-4.9) X10*3/uL [place] # (Auto) (0.1-1.2) X10*3/uL Eos # (Auto) (0.0-0.4) X10*3/uL Baso # (Auto) (0.0-0.2) X10*3/uL Abs Immat Gran (auto) (0.00-0.03) X10*3/uL Absolute Neuts (auto) (2.0-8.3) x10*3/uL Absolute Nucleated RBC (0.0-0.012) X10*3/uL Nucleated RBC % (auto) (0.0-0.2) /100WBC D-Dimer High Sensitivty 370 NG/ML Sodium (135-145) mmol/L Potassium (3.3-5.1) mmol/L Chloride (96-108) mmol/L Carbon Dioxide (22-29) mmol/L Anion Gap (12-20) BUN (9-16) mg/dL Creatinine (0.5-1.4) mg/dL Estim Creat Clear Calc Estimated GFR Random Glucose (60-115) mg/dL Calcium (8.4-10.2) mg/dL Total Bilirubin (0.0-1.0) mg/dL Direct Bilirubin (0.0-0.5) mg/dL AST (5-37) U/L ALT (0-40) U/L Alkaline Phosphatase (39-117) U/L Troponin I High Sens 6.1 (<3.5-35.0) ng/L Total Protein (6.5-8.0) g/dL Albumin (3.5-5.0) g/dL COVID-19 ([facility]) Negative (Negative) COVID-19 Clin Com See Note Imaging Data Chest x-ray: Attestation: I personally reviewed and interpreted this imaging study as follows: Radiologist's impression: [place] [id number] XRay Report Signed Patient: Gal Maldonado MR#: [id number] : 1955 Acct:[id number] Age/Sex: 65 / M ADM Date: 08/16/21 Loc: .ED Attending Dr: Ordering Physician: Abigail Tomas DO Date of Service: 08/16/21 Procedure(s): XR chest 2V Accession Number(s): [id number] cc: Abigail Tomas DO~ EXAMINATION: XR CHEST CLINICAL INFORMATION: Chest pain COMPARISON: 01/03/2021 TECHNIQUE: 2 views of the chest were obtained. FINDINGS: Normal heart size. Tortuous thoracic aorta. Adequate expansion of the lungs. No focal consolidation. No pleural effusion or pneumothorax. No acute osseous abnormality. Degenerative changes of the spine and bilateral shoulders. There is postsurgical change of the right clavicle, stable since prior study. XR/XR chest 2V IMPRESSION: No acute disease within the chest. CT scan - chest: Attestation: I personally reviewed and interpreted this imaging study as follows: Radiologist's impression: FINDINGS: QUALITY OF STUDY/CONTRAST BOLUS: Slightly less than optimal and significant motion artifact is present PULMONARY ARTERIES: No central or large segmental pulmonary emboli.? THORACIC AORTA: No aneurysm or dissection. LUNG: No focal consolidation, nodules or masses. Left basilar atelectasis is present. PLEURA: No pleural effusion or pneumothorax. MEDIASTINUM: There is mild cardiac enlargement.? No pericardial effusion.? No hilar or mediastinal lymphadenopathy.? No evidence of septal bowing or right heart strain. CHEST WALL/AXILLA: No axillary or internal mammary lymphadenopathy. OSSEOUS STRUCTURES: No acute or suspicious osseous abnormality.? UPPER ABDOMEN: Unremarkable.? No reflux of contrast into the hepatic veins to suggest elevated right heart pressures. CT/CT angio chest PE protocol IMPRESSION: No definite evidence of pulmonary emboli. ? VTE: negative Discharge Plan Discharge Clinical Impression: Atypical chest pain, Anxiety Patient Disposition: Home, Self-Care Instructions: Anxiety (ED), Chest Wall Pain (ED) Additional Instructions: Your lab work, CXR and CT scan all look normal Follow-up with your primary care doctor Prescriptions: New lorazepam 0.5 mg tablet 0.5 mg PO BID PRN (Reason: anxiety) Qty: 8 RF: 0 Referrals: Name,MD Gwyn [Primary Care Provider] - 2 days
[2021-08-16] MEDS: LORazepam 2 MG/ML VIAL 1 MG IM (22:21)
[2021-08-16] MEDS: Ketorolac Tromethamine 15 MG/ML VIAL 30 MG IVPUSH (22:22)
[2021-08-16 22:38] LABS: Troponin-I High Sensitivity 6.1 ng/L (<3.5-35.0)
[2021-08-16] MEDS: iohexoL 350 MG/ML 100 ML INFUS..BTL IV (23:24)
[2021-08-16 23:35] VITALS: BP 136/87; PULSE 82; RESP 16; O2SAT 94
[2021-08-17 01:02] VITALS: BP 130/79; PULSE 80; RESP 16; O2SAT 97
== END 2021-08-17 01:04 | disposition home or self-care (01) ==
PROVIDERS: Emergency Medicine; Nurse Practitioner Family; Emergency Provider Internal Medicine; PCP Internal Medicine Geriatric Medicine
DX: R07.89 Other chest pain (principal); F41.9 Anxiety disorder, unspecified; Z20.822 Contact with and (suspected) exposure to COVID-19; I10 Essential (primary) hypertension
CPT/HCPCS: 36415; 71046; 71275; 80048; 80076; 84484; 85025; 85379; 87635; 93005; 96372; 96374; 99284; J1885; J2060; Q9967

== ENCOUNTER 2021-08-20 06:38 | Emergency (ER) | payer MEDICARE, MEDICAID, SELFPAY ==
--- NOTE | 2021-08-20 07:03 | ED.URI ---
HPI - URI/Sore Throat General Chief Complaint: Upper Respiratory Symptoms Stated Complaint: runny nose, nausea, cough Time Seen by Provider: 08/20/21 06:40 Source: patient and family Mode of arrival: ambulatory Limitations: no limitations History of Present Illness HPI Narrative: 08/16 just seen negative CTA and negative COVID for URI and chest pain symptoms - EKG and trop negative MD elicited complaint: rhinorrhea and nasal congestion Onset (ago): day(s) (5) Consistency: intermittent Severity: mild Able to tolerate fluids by mouth: Yes Exacerbating factors: nothing Relieving factors: nothing Context: sick contacts (neighbor has COVID) Associated symptoms: headache, rhinorrhea and nasal congestion Treatments prior to arrival: none Related Data Previous Rx's Medication Instructions Recorded lorazepam 0.5 mg tablet 0.5 mg PO BID PRN #8 tab 08/17/21 Allergies Allergy/AdvReac Type Severity Reaction Status Date / Time diphenhydramine Allergy Unknown UNKNOWN Verified 08/16/21 16:57 [From BENADRYL] penicillin G [PENICILLIN G] Allergy Unknown HIVES Verified 08/16/21 16:57 Review of Systems Review of Systems: Constitutional : no Fever, no Chills, no fatigue, positive Malaise ENT/Mouth : no sore throat, positive runny nose Eyes: No Discharge Cardiovascular : No Chest Pain, No SOB Respiratory : No Cough, No Sputum Gastrointestinal : No Nausea, No Vomiting, No Diarrhea Genitourinary : No Dysuria, No Urinary Frequency Musculoskeletal : positive Myalgia Skin : No rash Neuro : pos Headache PMFSH Past Medical History Attestation statement: The following information was validated with the patient. Medical History Arthritis Asthma Fibromyalgia Gastritis Glaucoma Prostate cancer Social History Social History Alcohol intake: never Patient Tobacco Use Status: Never used Tobacco Advance Directives: No Advance Directives Information Provided: No Physical Exam Vital Signs: Vital Signs: Last Vital Signs Temp 98.5 F 08/20/21 07:07 Pulse 74 08/20/21 07:07 Resp 14 08/20/21 07:07 BP 135/89 08/20/21 07:07 Pulse Ox 99 08/20/21 07:07 Body Mass Index 30.4 Appearance: Alert. Oriented X3. No acute distress. Eyes: Pupils equal, round and reactive to light. ENT: Pharynx normal. Neck: Normal inspection. Neck supple. CVS: Normal heart rate and rhythm. Pulses normal. Respiratory: No respiratory distress. Breath sounds normal. Abdomen: Soft and nontender. Skin: Skin warm and dry. Normal skin color. Extremities: No lower extremity edema. Neuro: Oriented X 3. No motor deficit. No sensory deficit. MDM - URI/Sore Throat MDM Narrative Medical decision making narrative: 65 yo male with hx of anxiety, glaucoma, gastritis, prostate cancer comes in with 5 days of URI symptoms he is vaccinated x 2 Moderna he presents with his who is also vaccinated they both c/o URI symptoms and their neighbor has COVID. He has normal VS, clear lungs not toxic - COVID swab. Lab Data Labs: Lab Results 08/20/21 Range/Units 07:12 COVID-19 ([facility]) Negative (Negative) COVID-19 Clin Com See Note Discharge Plan Discharge Clinical Impression: Viral infection Patient Disposition: Home, Self-Care Instructions: Viral Syndrome (ED) Additional Instructions: return to ED for any worsening symptoms or concerns NEGATIVE FOR COVID Prescriptions: No Action lorazepam 0.5 mg tablet 0.5 mg PO BID PRN (Reason: anxiety) Qty: 8 RF: 0 Referrals: Name,MD Gwyn [Primary Care Provider] - 3 days (if not better) Print Language: Indonesian
[2021-08-20 07:07] VITALS: BP 135/89; PULSE 74; RESP 14; TEMP 36.9; O2SAT 99; BMI 30.4
[2021-08-20 07:33] LABS: COVID-19 Test Negative (Negative); IDNOW Serial# 9DD0AD1C
== END 2021-08-20 07:49 | disposition home or self-care (01) ==
PROVIDERS: Emergency Provider Emergency Medicine; PCP Internal Medicine Geriatric Medicine
DX: B34.9 Viral infection, unspecified (principal); J45.909 Unspecified asthma, uncomplicated; Z20.822 Contact with and (suspected) exposure to COVID-19
CPT/HCPCS: 36415; 87635; 99282; 99283

== ENCOUNTER 2021-09-05 10:43 | Outpatient (REF) | payer MEDICARE, MEDICAID, SELFPAY ==
[2021-09-05 11:24] LABS: COVID-19 Test Negative (Negative)
== END 2021-09-05 10:44 | disposition home or self-care (01) ==
LOC: HO.LAB 10:43
PROVIDERS: Visit Provider Internal Medicine
DX: Z20.822 Contact with and (suspected) exposure to COVID-19 (principal)
CPT/HCPCS: 36415; 87635; C9803

== ENCOUNTER 2021-09-13 12:13 | Outpatient (REF) | payer MEDICARE, MEDICAID, SELFPAY | END 2021-09-13 12:14 | disposition home or self-care (01) | LOC: HO.LAB 12:13 | PROVIDERS: Visit Provider Internal Medicine | DX: Z20.822 Contact with and (suspected) exposure to COVID-19 (principal) | CPT/HCPCS: C9803; U0003; U0005 ==

== ENCOUNTER 2021-12-03 02:37 | Emergency (ER) | payer MEDICARE, MEDICAID, SELFPAY ==
[2021-12-03 03:15] VITALS: BP 159/78; PULSE 60; RESP 20; TEMP 36.6; O2SAT 98
--- NOTE | 2021-12-03 03:28 | ED.EAR ---
HPI - Ear Problem General Chief complaint: Ear Problems Stated complaint: ear pain/fluid Time Seen by Provider: 12/03/21 03:22 Source: patient Mode of arrival: ambulatory Limitations: no limitations History of Present Illness HPI Narrative: patient comes to emergency room complaining of bilateral ear itching. Patient states that he also has bilateral humming. Patient was already seen by his primary care physician. Patient had ear wax, given the Laz, then his ears were cleaned. Patient states that he cannot stand the itching and the humming and came to the emergency room. Patient already has an appointment pending with ENT. Patient denies fever chills, no throat pain Related Data Previous Rx's Medication Instructions Recorded lorazepam 0.5 mg tablet 0.5 mg PO BID PRN #8 tab 08/17/21 acetic acid 2 % ear solution 5 drp OTIC (EARS) Q6H #15 ml 12/03/21 levofloxacin 500 mg tablet 500 mg PO DAILY #7 tab 12/03/21 Allergies Allergy/AdvReac Type Severity Reaction Status Date / Time diphenhydramine Allergy Unknown UNKNOWN Verified 12/03/21 03:17 [From BENADRYL] penicillin G [PENICILLIN G] Allergy Unknown HIVES Verified 12/03/21 03:17 Review of Systems Review of Systems: Constitutional : No Weight loss, No Fever, No Chills, No Night Sweats, No Fatigue, No Malaise ENT/Mouth : No Hearing loss, complaining of bilateral ear discomfort and itching.No Nasal Congestion, No Sinus Pain, No Hoarseness, No sore throat, No Rhinorrhea, No Swallowing Difficulty Eyes: No Eye Pain, No Swelling, No Redness, No Foreign Body, No Discharge, No Vision Changes Cardiovascular : No Chest Pain, No SOB, No Dyspnea on Exertion, No Orthopnea, No Edema, No Palpitations Respiratory : No Cough, No Sputum, No Wheezing, No Smoke Exposure, No Dyspnea Gastrointestinal : No Nausea, No Vomiting, No Diarrhea, No Constipation, No abdominal Pain, No Hematochezia, No Melena Genitourinary : no irregular bleeding, No Dysuria, No Urinary Frequency, No Hematuria, No Urinary Incontinence, No Urgency, No Flank Pain, No Urinary Flow Changes, No Hesitancy Musculoskeletal : No joint pain, No Myalgias, No Joint Swelling Skin : No Skin Lesions, No rash Neuro : No Weakness, No Numbness, No Paresthesias, No Loss of Consciousness, No Dizziness, No Headache Psych : No Anxiety/Panic, No Depression, No SI/HI/AH/VH, No Social Issues, Heme/Lymph: No Bruising, No Bleeding,No Lymphadenopathy Endocrine : No Polyuria, No Polydipsia, No Temperature Intolerance [facility] Past Medical History Medical History Arthritis Asthma Fibromyalgia Gastritis Glaucoma Prostate cancer Social History Social History Alcohol intake: never Patient Tobacco Use Status: Never used Tobacco Advance Directives: No Advance Directives Information Provided: Yes Physical Exam Vital Signs: Vital Signs: Last Vital Signs Temp 97.8 F 12/03/21 03:15 Pulse 60 12/03/21 03:15 Resp 20 12/03/21 03:15 BP 159/78 H 12/03/21 03:15 Pulse Ox 98 12/03/21 03:15 BMI result Body Mass Index 30.0 Const: Other: Appearance: Alert. Oriented X3. No acute distress. Eyes: Pupils equal, round and reactive to light. ENT: Pharynx normal. Both ears are clean, no cerumen. Patient has erythema in the tympanic membrane on the left side. Right ear canal within normal limits. Neck: Normal inspection. Neck supple. No lymph nodes noted. No crepitus CVS: Normal heart rate and rhythm. Pulses normal. Normal S1 and S2 Respiratory: No respiratory distress. Breath sounds normal. No Wheezing. No rales Abdomen: Soft and nontender. No rigidity. No distention. good BS x4 Skin: Skin warm and dry. Normal skin color. Normal skin turgor. Extremities: No lower extremity edema. No Lacerations. No Rash Neuro: Oriented X 3. No motor deficit. No sensory deficit. Moving all extermities. No slurred speech. CN 2 through 12 grossly intact Course Course Course Narrative: Patient will be started on antibiotics. Patient instructed follow up with his ENT. Discharge Plan Discharge Clinical Impression: Otitis media Patient Disposition: Home, Self-Care Instructions: Ear Infection (ED) Additional Instructions: Please follow-up with your primary care physician tomorrow. If you have any worsening or new symptoms, please return to the emergency room or call 911 Prescriptions: New acetic acid 2 % solution 5 p otic (ears) Q6H Qty: 15 0RF Rx Instructions: apply to (cotton) wick; replace wick every 24 hours levofloxacin 500 mg tablet 500 mg PO DAILY Qty: 7 0RF No Action lorazepam 0.5 mg tablet 0.5 mg PO BID PRN (Reason: anxiety) Qty: 8 0RF
== END 2021-12-03 03:48 | disposition home or self-care (01) ==
PROVIDERS: Emergency Provider Emergency Medicine
DX: H66.91 Otitis media, unspecified, right ear (principal)
CPT/HCPCS: 99283

== ENCOUNTER 2021-12-20 17:38 | Emergency (ER) | payer MEDICARE, MEDICAID, SELFPAY ==
--- NOTE | ~2021-12-20 | XR_ITS ---
EXAMINATION: XR CHEST CLINICAL INFORMATION: Chest pain COMPARISON: Chest x-ray and CTA chest 08/16/2021 TECHNIQUE: Frontal view of the chest was obtained. FINDINGS: Cardiac silhouette is normal in size. The lungs are well aerated. There is no lobar consolidation. No pleural effusion or pneumothorax. Degenerative changes of the spine. Postsurgical changes of the distal right clavicle. XR/XR chest 1V IMPRESSION: No acute pulmonary pathology.
[2021-12-20 18:44] VITALS: BP 158/87; PULSE 56; RESP 18; TEMP 37.1; O2SAT 99; BMI 31.9
--- NOTE | 2021-12-20 18:47 | ECG_ITS ---
Test Reason : chest pain Blood Pressure : / mmHG Vent. Rate : 059 BPM Atrial Rate : 059 BPM P-R Int : 130 ms QRS Dur : 092 ms QT Int : 410 ms P-R-T Axes : 042 -17 020 degrees QTc Int : 405 ms Artifact in tracing Sinus bradycardia Incomplete right bundle branch block Borderline ECG When compared with ECG of 16-AUG-2021 15:33, No significant changes seen Referred By: Generic ED Physician Electronically Signed By:ANNA LANGLEY
[2021-12-20 19:03] LABS: Hematocrit 42.4 % (42.0-52.0); Hemoglobin 14.7 g/dl (14.0-18.0); Mean Corpuscular HGB Conc 34.7 g/dl (31.0-36.0); Mean Corpuscular Hemoglobin 29.8 pg (27.0-33.0); Mean Corpuscular Volume 85.8 fL (80.0-98.0); Mean Platelet Volume 9.1 fL (9.4-12.4); Platelet Count 206 X10*3/uL (160-400); Red Blood Count 4.94 X10*6/uL (4.60-5.80); Red Cell Distribution Width 12.3 % (11.0-16.0); White Blood Count 4.1 X10*3/uL (4.8-10.8)
[2021-12-20 19:21] LABS: Troponin-I High Sensitivity < 3.5 ng/L (<3.5-35.0)
[2021-12-20 19:28] LABS: Anion Gap 8 (12-20); Blood Urea Nitrogen 14 mg/dL (9-16); Carbon Dioxide 31 mmol/L (22-29); Chloride 108 mmol/L (96-108); Creatinine Clr Calc Pharmacy 83.6; Estimated Glomerular Filt Rate > 60; Glucose Random 82 mg/dL (60-115); Potassium 4.2 mmol/L (3.3-5.1); Sodium 143 mmol/L (135-145)
--- NOTE | 2021-12-20 21:59 | ED_ITS ---
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 pain is sharp in character comes and goes this is only for few seconds no shortness of breath no cough Related Data Previous Rx's Medication Instructions Recorded lorazepam 0.5 mg tablet 0.5 mg PO BID PRN #8 tab 08/17/21 acetic acid 2 % ear solution 5 drp OTIC (EARS) Q6H #15 ml 12/03/21 levofloxacin 500 mg tablet 500 mg PO DAILY #7 tab 12/03/21 cyclobenzaprine 10 mg tablet 10 mg PO Q8H #20 tab 12/20/21 Allergies Allergy/AdvReac Type Severity Reaction Status Date / Time diphenhydramine Allergy Unknown UNKNOWN Verified 12/03/21 03:17 [From BENADRYL] penicillin G [PENICILLIN G] Allergy Unknown HIVES Verified 12/03/21 03:17 Review of Systems Review of Systems: Yes all other systems are reviewed and are negative [facility] Past Medical History Medical History Arthritis Asthma Fibromyalgia Gastritis Glaucoma Prostate cancer Social History Social History Alcohol intake: never Patient Tobacco Use Status: Never used Tobacco Advance Directives: No Physical Exam Vital Signs: Vital Signs: Last Vital Signs Temp 98.7 F 12/20/21 18:44 Pulse 62 12/20/21 22:31 Resp 16 12/20/21 22:31 BP 143/88 H 12/20/21 22:31 Pulse Ox 97 12/20/21 22:31 BMI result Body Mass Index 31.9 Appearance: Alert. Oriented X3. No acute distress. ENT: Pharynx normal. Oral Mucosa moist Neck: Normal inspection. Neck supple. CVS: Normal heart rate and rhythm. Pulses normal. Respiratory: No respiratory distress. Equal air entry bilateral, no wh eezing/rales/rhonchi diffuse tenderness bilaterally in the ribs Abdomen: Soft and nontender. Bowel sounds are present, no mass palpable, Skin: Skin warm and dry. Normal skin color. Normal skin turgor. Extremities: No lower extremity edema. No calf tenderness Neuro: Oriented X 3. MDM - Chest Pain MDM Narrative Medical decision making narrative: Patient' with atypical chest pain with history of arthritis tender to palpate bilateral ribs on oxycodone for chronic pain, chest x-ray negative, discharge patient home advised to continue muscle relaxants and oxycodone follow with PCP Lab Data Attestation: I reviewed the patient's lab results. Result diagrams: 12/20/21 18:56 12/20/21 18:56 Labs: Lab Results 12/20/21 12/20/21 12/20/21 Range/Units 18:56 18:56 18:56 WBC 4.1 L (4.8-10.8) X10*3/uL RBC 4.94 (4.60-5.80) X10*6/uL Hgb 14.7 (14.0-18.0) g/dl Hct 42.4 (42.0-52.0) % MCV 85.8 (80.0-98.0) fL MCH 29.8 (27.0-33.0) pg MCHC 34.7 (31.0-36.0) g/dl RDW 12.3 (11.0-16.0) % Plt Count 206 (160-400) X10*3/uL MPV 9.1 L (9.4-12.4) fL Absolute Nucleated RBC 0.000 (0.0-0.012) X10*3/uL Nucleated RBC % (auto) 0.0 (0.0-0.2) /100WBC Sodium 143 (135-145) mmol/L Potassium 4.2 (3.3-5.1) mmol/L Chloride 108 (96-108) mmol/L Carbon Dioxide 31 H (22-29) mmol/L Anion Gap 8 L (12-20) BUN 14 (9-16) mg/dL Creatinine 0.84 (0.5-1.4) mg/dL Estim Creat Clear Calc 83.6 Estimated GFR > 60 Random Glucose 82 (60-115) mg/dL Calcium 9.0 (8.4-10.2) mg/dL Troponin I High Sens < 3.5 (<3.5-35.0) ng/L ECG Data ECG #1: Attestation: I personally reviewed and interpreted this ECG as follows: Interpretation: sinus bradycardia with heart rate 59 beats per minute incomplete right bundle- branch block no acute ST-T changes no acute ischemia no significant change from previous EKGs Discharge Plan Discharge Clinical Impression: Atypical chest pain Patient Disposition: Home, Self-Care Instructions: Chest Pain (ED) Additional Instructions: Continue pain medication as prescribed for arthritis Muscle relaxant as advised Follow with PCP for further evaluation Prescriptions: New cyclobenzaprine 10 mg tablet 10 mg PO Q8H Qty: 20 0RF No Action lorazepam 0.5 mg tablet 0.5 mg PO BID PRN (Reason: anxiety) Qty: 8 0RF acetic acid 2 % solution 5 drp otic (ears) Q6H Qty: 15 0RF Rx Instructions: apply to (cotton) wick; replace wick every 24 hours levofloxacin 500 mg tablet 500 mg PO DAILY Qty: 7 0RF Interventions: ED Discharge Assessment Last Done: 12/20/21 22:52 Discharge Date/Time: 12/20/21 22:53
[2021-12-20 22:31] VITALS: BP 143/88; PULSE 62; RESP 16; O2SAT 97
[2021-12-20] MEDS: Cyclobenzaprine HCl 5 MG TABLET PO (22:34)
[2021-12-20] MEDS: oxyCODONE HCl Immed Release 5 MG TABLET PO (22:35)
== END 2021-12-20 22:53 | disposition home or self-care (01) ==
PROVIDERS: Emergency Provider Internal Medicine; PCP Internal Medicine Geriatric Medicine
DX: R07.89 Other chest pain (principal); R07.81 Pleurodynia; Z79.899 Other long term (current) drug therapy
CPT/HCPCS: 36415; 71045; 80048; 84484; 85027; 93005; 99283; 99284

== ENCOUNTER 2022-01-30 05:36 | Emergency (ER) | payer MEDICARE, MEDICAID, SELFPAY ==
--- NOTE | ~2022-01-30 | XR_ITS ---
EXAMINATION: XR CHEST CLINICAL INFORMATION: Chest pain COMPARISON: 12/20/2021 TECHNIQUE: Frontal view of the chest was obtained. FINDINGS: Normal symmetric lung volumes. No parenchymal consolidation. No pleural effusion. No pneumothorax. Cardiomediastinal silhouette and pulmonary vascularity are within normal limits. Aorta is atherosclerotic. No acute osseous abnormalities. Again seen is previous resection of the distal clavicle on the right. Moderate bilateral glenohumeral arthrosis. XR/XR chest 1V IMPRESSION: No acute pulmonary pathology.
--- NOTE | ~2022-01-30 | CT_ITS ---
EXAMINATION: CT HEAD WITHOUT CONTRAST CLINICAL INFORMATION: Right-sided headache. COMPARISON: None TECHNIQUE: Contiguous axial imaging was performed from the skull base to vertex without intravenous administration of contrast. This CT examination was performed using dose optimization techniques as appropriate, variously including the following: *Automated exposure control *Adjustment of mA and/or kV according to patient size (this includes techniques or standardized protocols for targeted exams where dose is matched to indication/reason for exam; i.e. extremities or head) *Use of iterative reconstruction technique DLP: 723.6 mGy-cm FINDINGS: There is no evidence of acute intracranial hemorrhage or territorial infarction. No abnormal mass effect or midline shift is seen. Gross to white matter differentiation is well preserved. No extra-axial fluid collections are identified. The ventricles are normal in size. There is no abnormal attenuation within the brain parenchyma. The osseous structures and soft tissues are normal. The mastoid air cells and visualized portions of the paranasal sinuses are well aerated. CT/CT head/brain wo con IMPRESSION: No acute intracranial pathology.
[2022-01-30 05:48] VITALS: BP 139/82; PULSE 57; RESP 16; TEMP 36.3; O2SAT 98; BMI 28.8
--- NOTE | 2022-01-30 07:21 | ECG_ITS ---
Test Reason : CP Blood Pressure : / mmHG Vent. Rate : 051 BPM Atrial Rate : 051 BPM P-R Int : 144 ms QRS Dur : 094 ms QT Int : 440 ms P-R-T Axes : 021 -17 005 degrees QTc Int : 405 ms Poor data quality Sinus bradycardia Possible Left atrial enlargement Nonspecific T wave abnormality Abnormal ECG When compared with ECG of 20-DEC-2021 18:44, Poor data quality in current ECG precludes serial comparison Referred By: Chiki Freedman Electronically Signed By:LUKAS FORD MD
--- NOTE | 2022-01-30 07:22 | ED.GENADULT ---
HPI - General Adult General Chief complaint: General Medical Stated complaint: ear/head pain, side pain Time Seen by Provider: 01/30/22 07:21 Source: patient, family (Spouse) and charge authorizer Mode of arrival: ambulatory Limitations: no limitations History of Present Illness HPI narrative: 66-year-old male came in for evaluation of right-sided head pain. Headache localized to the right side of the head, started days ago, described as intermittent headache, no other associated photophobia, no neck stiffness, no fever, no chills, patient also been complaining of right ear pain and nasal discharge especially in the morning time, patient declined headache currently in the ED. Patient also been complaining of left-sided chest wall pain mostly in the left axillary area, pain is localized with no radiation, intermittent, described as dull aching pain., no fever, no chills. Related Data Previous Rx's Medication Instructions Recorded lorazepam 0.5 mg tablet 0.5 mg PO BID PRN #8 tab 08/17/21 acetic acid 2 % ear solution 5 drp OTIC (EARS) Q6H #15 ml 12/03/21 levofloxacin 500 mg tablet 500 mg PO DAILY #7 tab 12/03/21 cyclobenzaprine 10 mg tablet 10 mg PO Q8H #20 tab 12/20/21 Allergies Allergy/AdvReac Type Severity Reaction Status Date / Time diphenhydramine Allergy Unknown UNKNOWN Verified 12/03/21 03:17 [From BENADRYL] penicillin G [PENICILLIN G] Allergy Unknown HIVES Verified 12/03/21 03:17 Review of Systems Review of Systems: All other systems are reviewed and are negative Constitutional: Reports as per HPI and Reports no additional constitutional complaints Eyes: Reports as per HPI and Reports no additional eye complaints Reports system reviewed and no additional complaints, except as documented Cardiovascular: Reports as per HPI and Reports no additional cardiovascular complaints Respiratory: Reports as per HPI and Reports no additional respiratory complaints Gastrointestinal: Reports as per HPI and Reports no additional gastrointestinal complaints Genitourinary: Reports no additional female genitourinary complaints Musculoskeletal: Reports no additional musculoskeletal complaints Skin/Breast: Reports system reviewed and no additional complaints, except as docu Psychiatric: Reports no additional psychiatric complaints Endocrine: Reports no additional endocrine complaints Hematologic/Lymphatic: Reports no additional hematologic/lymphatic complaints Allergic/Immunologic: Reports no additional allergic/immunologic complaints Reports system reviewed and no additional complaints, except as documented and Reports Abnormal speech present [facility] Past Medical History Medical History Arthritis Asthma Fibromyalgia Gastritis Glaucoma Prostate cancer Social History Social History Alcohol intake: never Patient Tobacco Use Status: Never used Tobacco Advance Directives: No Advance Directives Information Provided: Yes Physical Exam ED Vital Signs: Vital Signs - 24 hr 01/30/22 05:48 01/30/22 11:33 Temperature 97.3 F 98.9 F Pulse Rate 57 64 Respiratory Rate 16 14 Blood Pressure 139/82 151/90 H Pulse Oximetry 98 97 BMI result Body Mass Index 28.8 Vital signs have been reviewed as appeared to be correct. Blood pressure normal. Heart rate normal. Respiration rate normal. Temperature normal. Oxygen saturation normal. Appearance: Alert. Oriented X3. No acute distress. Head: Normal external exam. Normocephalic. Atraumatic. No Kim signs noted. No raccoon eyes noted Eyes: PERRLA. EOMI. Conjunctiva and sclera normal. Eyelids normal. ENT: TM's Normal. Pharynx normal. Uvula midline. Moist mucous membranes. No trismus noted. No drooling noted. No muffled voice noted. Neck: Normal inspection. Neck supple. FROM. No adenopathy. Thyroid Normal. No meningeal signs. No neck mass noted. CVS: Normal heart rate and rhythm. Heart sound normal. No murmurs noted. Pulses normal throughout. Respiratory: No respiratory distress. Painless inspiration. Breath sounds normal. No wheezes/rales/rhonchi noted. Chest nontender. No accessory muscle usage noted or decreased air movement noted. Abdomen: Soft and nontender. Bowel sounds normal in all 4 quadrants. No distention noted. No organomegaly noted. No visible injury noted. Back: No CVA tenderness. Full range of motion noted. Skin: Skin warm and dry. Normal skin color. Normal skin turgor. No rashes/lesions/lacerations noted. Extremities: No lower extremity edema. Extremities exhibit normal range of motion. Extremities nontender. Neuro: Oriented X 3. Cranial nerve exam: II-XII are grossly intact No motor deficit. No sensory deficit. Reflexes normal. Course Course Course Narrative: Assessment and plan. 66-year-old male came in for evaluation of 5 days of intermittent headache, patient has a normal neuro exam with a normal head CT, no evidence of acute sinusitis on the physical exam. Been complaining of 5 days of intermittent chest pain, unremarkable troponin with HEART score of 2. 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 Patient was instructed to take Tylenol p.r.n. pain. Medical Decision Making Lab Data Result diagrams: 01/30/22 07:58 01/30/22 07:58 Labs: Lab Results 01/30/22 01/30/22 01/30/22 Range/Units 07:58 07:58 07:58 WBC 3.9 L (4.8-10.8) X10*3/uL RBC 4.83 (4.60-5.80) X10*6/uL Hgb 14.2 (14.0-18.0) g/dl Hct 40.9 L (42.0-52.0) % MCV 84.7 (80.0-98.0) fL MCH 29.4 (27.0-33.0) pg MCHC 34.7 (31.0-36.0) g/dl RDW 12.7 (11.0-16.0) % Plt Count 185 (160-400) X10*3/uL MPV 9.1 L (9.4-12.4) fL Immature Gran % (Auto) 0.0 (0.0-0.4) % Neut % (Auto) 28.0 L (45-73) % Lymph % (Auto) 51.7 H (20-40) % [place] % (Auto) 9.9 (2-11) % Eos % (Auto) 9.4 H (0-4) % Baso % (Auto) 1.0 (0-2) % Lymph # (Auto) 2.0 (1.2-4.9) X10*3/uL [place] # (Auto) 0.4 (0.1-1.2) X10*3/uL Eos # (Auto) 0.4 (0.0-0.4) X10*3/uL Baso # (Auto) 0.0 (0.0-0.2) X10*3/uL Abs Immat Gran (auto) 0.00 (0.00-0.03) X10*3/uL Absolute Neuts (auto) 1.1 L (2.0-8.3) x10*3/uL Absolute Nucleated RBC 0.000 (0.0-0.012) X10*3/uL Nucleated RBC % (auto) 0.0 (0.0-0.2) /100WBC Sodium 142 (135-145) mmol/L Potassium 4.4 (3.3-5.1) mmol/L Chloride 106 (96-108) mmol/L Carbon Dioxide 29 (22-29) mmol/L Anion Gap 11 L (12-20) BUN 12 (9-16) mg/dL Creatinine 0.76 (0.5-1.4) mg/dL Estim Creat Clear Calc 91.1 Estimated GFR > 60 Random Glucose 113 D (60-115) mg/dL Calcium 9.3 (8.4-10.2) mg/dL Troponin I High Sens < 3.5 (<3.5-35.0) ng/L Lipase 95 H (8-78) U/L Discharge Plan Discharge Clinical Impression: Chest wall pain, Headache, Pancreatitis Patient Disposition: Home, Self-Care Instructions: Chest Wall Pain (ED), Pancreatitis (ED) Additional Instructions: Follow-up with your digital content producer Prescriptions: No Action cyclobenzaprine 10 mg tablet 10 mg PO Q8H Qty: 20 0RF lorazepam 0.5 mg tablet 0.5 mg PO BID PRN (Reason: anxiety) Qty: 8 0RF acetic acid 2 % solution 5 drp otic (ears) Q6H Qty: 15 0RF Rx Instructions: apply to (cotton) wick; replace wick every 24 hours levofloxacin 500 mg tablet 500 mg PO DAILY Qty: 7 0RF Referrals: Physician,Unknown J [Primary Care Provider] -
--- NOTE | 2022-01-30 07:42 | ECG_ITS ---
Test Reason : cp Blood Pressure : / mmHG Vent. Rate : 060 BPM Atrial Rate : 060 BPM P-R Int : 142 ms QRS Dur : 094 ms QT Int : 446 ms P-R-T Axes : 047 -19 028 degrees QTc Int : 446 ms Normal sinus rhythm Nonspecific T wave abnormality Abnormal ECG When compared with ECG of 30-JAN-2022 07:28, Nonspecific T wave abnormality, improved in Anterior leads QT has lengthened Referred By: Chiki Freedman Electronically Signed By:LUKAS FORD MD
[2022-01-30 08:03] LABS: MANUAL DIFF FLAG NO
[2022-01-30 08:06] LABS: Eosinophils Absolute Auto 0.4 X10*3/uL (0.0-0.4); Eosinophils Percent Auto 9.4 % (0-4); Hematocrit 40.9 % (42.0-52.0); Hemoglobin 14.2 g/dl (14.0-18.0); Lymphocytes Percent Auto 51.7 % (20-40); Mean Corpuscular HGB Conc 34.7 g/dl (31.0-36.0); Mean Corpuscular Hemoglobin 29.4 pg (27.0-33.0); Mean Corpuscular Volume 84.7 fL (80.0-98.0); Mean Platelet Volume 9.1 fL (9.4-12.4); Monocytes Absolute Auto 0.4 X10*3/uL (0.1-1.2); Monocytes Percent Auto 9.9 % (2-11); Neutrophils Absolute Auto 1.1 x10*3/uL (2.0-8.3); Platelet Count 185 X10*3/uL (160-400); Red Blood Count 4.83 X10*6/uL (4.60-5.80); Red Cell Distribution Width 12.7 % (11.0-16.0); White Blood Count 3.9 X10*3/uL (4.8-10.8)
[2022-01-30 08:20] LABS: Anion Gap 11 (12-20); Blood Urea Nitrogen 12 mg/dL (9-16); Calcium 9.3 mg/dL (8.4-10.2); Carbon Dioxide 29 mmol/L (22-29); Chloride 106 mmol/L (96-108); Creatinine Clr Calc Pharmacy 91.1; Estimated Glomerular Filt Rate > 60; Glucose Random 113 mg/dL (60-115); Lipase 95 U/L (8-78); Potassium 4.4 mmol/L (3.3-5.1); Sodium 142 mmol/L (135-145)
[2022-01-30 08:26] LABS: Troponin-I High Sensitivity < 3.5 ng/L (<3.5-35.0)
[2022-01-30 11:33] VITALS: BP 151/90; PULSE 64; RESP 14; TEMP 37.2; O2SAT 97
[2022-01-30] MEDS: Acetaminophen 325 MG TABLET 650 MG PO (12:31)
== END 2022-01-30 12:34 | disposition home or self-care (01) ==
PROVIDERS: Emergency Provider Emergency Medicine
DX: R51.9 Headache, unspecified (principal); R07.89 Other chest pain; K85.90 Acute pancreatitis without necrosis or infection, unspecified; J45.909 Unspecified asthma, uncomplicated
CPT/HCPCS: 36415; 70450; 71045; 80048; 83690; 84484; 85025; 93005; 99284

== ENCOUNTER 2022-03-13 16:02 | Emergency (ER) | payer MEDICARE, MEDICAID, SELFPAY ==
--- NOTE | 2022-03-13 | ECG_ITS ---
Test Reason : dizziness Blood Pressure : / mmHG Vent. Rate : 070 BPM Atrial Rate : 070 BPM P-R Int : 126 ms QRS Dur : 090 ms QT Int : 394 ms P-R-T Axes : 036 -17 028 degrees QTc Int : 425 ms Normal sinus rhythm Minimal voltage criteria for LVH, may be normal variant ( R in aVL ) Nonspecific T wave abnormality Abnormal ECG When compared with ECG of 30-JAN-2022 07:57, No significant change was found Referred By: Generic ED Physician Electronically Signed By:LUKAS FORD MD
--- NOTE | ~2022-03-13 | CT_ITS ---
CT head/brain wo con CLINICAL INFORMATION: Reason for Exam dizziness, upton, disequilibrium COMPARISON: No prior CT scan available for comparison. TECHNIQUE: Department standard protocol. This CT examination was performed using dose optimization techniques as appropriate, variously including the following: *Automated exposure control *Adjustment of mA and/or kV according to patient size (this includes techniques or standardized protocols for targeted exams where dose is matched to indication/reason for exam; i.e. extremities or head) *Use of iterative reconstruction technique DLP: 719 mGy-cm FINDINGS: CEREBRAL HEMISPHERES: There is no evidence of intra-axial or extra-axial mass, hemorrhage or acute infarct. BRAIN PARENCHYMA: Normal vadles-white matter differentiation. SUBDURAL SPACE: No bleed. BASAL GANGLIA AND PINEAL GLAND: Unremarkable VENTRICLES: Symmetric and normal in size. CEREBELLUM AND BRAINSTEM: No space-occupying mass, hemorrhage or acute infarct. CEREBELLOPONTINE ANGLES: No lesion found. ORBITS: No intraorbital mass. VESSELS: Unremarkable SKULL BASE: Unremarkable INCLUDED SINUSES AT SKULL BASE: Clear SKULL AND SKIN: No fracture or bone lesion found. CT/CT head/brain wo con IMPRESSION: No CT evidence of intracranial space-occupying mass, bleed or infarct.
[2022-03-13 16:21] VITALS: BP 141/91; PULSE 72; RESP 20; TEMP 37.1; O2SAT 98; BMI 27.8
[2022-03-13 16:36] LABS: MANUAL DIFF FLAG NO
[2022-03-13 16:42] LABS: Basophils Percent Auto 0.3 % (0-2); Eosinophils Percent Auto 1.2 % (0-4); Hemoglobin 14.5 g/dl (14.0-18.0); Lymphocytes Absolute Auto 1.9 X10*3/uL (1.2-4.9); Lymphocytes Percent Auto 55.9 % (20-40); Mean Corpuscular HGB Conc 35.4 g/dl (31.0-36.0); Mean Corpuscular Hemoglobin 30.3 pg (27.0-33.0); Mean Corpuscular Volume 85.8 fL (80.0-98.0); Mean Platelet Volume 9.4 fL (9.4-12.4); Monocytes Absolute Auto 0.3 X10*3/uL (0.1-1.2); Monocytes Percent Auto 9.2 % (2-11); Neutrophils Absolute Auto 1.1 x10*3/uL (2.0-8.3); Neutrophils Percent Auto 33.4 % (45-73); Platelet Count 201 X10*3/uL (160-400); Red Blood Count 4.78 X10*6/uL (4.60-5.80); Red Cell Distribution Width 13.2 % (11.0-16.0); White Blood Count 3.4 X10*3/uL (4.8-10.8)
[2022-03-13 16:56] LABS: Anion Gap 11 (12-20); Blood Urea Nitrogen 14 mg/dL (9-16); Carbon Dioxide 27 mmol/L (22-29); Chloride 104 mmol/L (96-108); Creatinine Clr Calc Pharmacy 94.6; Estimated Glomerular Filt Rate > 60; Glucose Random 98 mg/dL (60-115); Potassium 3.9 mmol/L (3.3-5.1); Sodium 138 mmol/L (135-145)
--- NOTE | 2022-03-13 18:12 | ED.GENADULT ---
HPI - General Adult General Chief complaint: Headache Stated complaint: High Blood Pressure Headache Time Seen by Provider: 03/13/22 18:12 Source: patient Mode of arrival: ambulatory Limitations: no limitations History of Present Illness HPI narrative: 66-year-old male history of arthritis, asthma, fibromyalgia, gastritis, glaucoma and prostate cancer presenting to the emergency department with complaints of headache, dizziness X4 days. Patient tells me sudden in onset. He tells me his headache is diffuse in nature and he denies vision changes. He describes his dizziness as disequilibrium and having a hard time catching his balance. Dizziness is worse w/ positional changes. A tells me that he intermittently feels like the room is spinning. He denies chest pain, shortness of breath, nausea, vomiting, fevers, chills. Onset (ago): day(s) (4) Location: head Radiation: non-radiation Severity: moderate Relieving factors: none Exacerbating factors: none Associated symptoms: denies other symptoms Treatments prior to arrival: none Related Data Previous Rx's Medication Instructions Recorded lorazepam 0.5 mg tablet 0.5 mg PO BID PRN anxiety #8 tabs 08/17/21 acetic acid 2 % ear solution 5 drp otic (ears) Q6H #15 mL 12/03/21 levofloxacin 500 mg tablet 500 mg PO DAILY #7 tabs 12/03/21 cyclobenzaprine 10 mg tablet 10 mg PO Q8H #20 tabs 12/20/21 meclizine 25 mg tablet 25 mg PO BID PRN dizziness #8 tabs 03/13/22 Allergies Allergy/AdvReac Type Severity Reaction Status Date / Time diphenhydramine Allergy Unknown UNKNOWN Verified 12/03/21 03:17 [From BENADRYL] penicillin G [PENICILLIN G] Allergy Unknown HIVES Verified 12/03/21 03:17 Review of Systems Review of Systems: Constitutional : No Weight loss, No Fever, No Chills, No Fatigue, No Malaise ENT/Mouth : No sore throat, No Rhinorrhea Eyes: No Eye Pain, No Swelling, No Redness Cardiovascular : No Chest Pain, No SOB, No Dyspnea on Exertion, No Orthopnea, No Edema, No Palpitations Respiratory : No Cough, No Sputum, No Wheezing Gastrointestinal : No Nausea, No Vomiting, No Diarrhea, No Constipation, No abdominal Pain, No Hematochezia, No Melena Genitourinary : No Dysuria, No Urinary Frequency, No Hematuria, Musculoskeletal : No joint pain, No Myalgias, No Joint Swelling Skin : No Skin Lesions, No rash Neuro : No Weakness, No Numbness, + Dizziness, + Headache Psych : No Anxiety/Panic, No Depression All other systems reviewed and are negative Yes all other systems are reviewed and are negative [facility] Past Medical History Attestation statement: The following information was validated with the patient. Source: old records reviewed and nursing notes reviewed Medical History Arthritis Asthma Fibromyalgia Gastritis Glaucoma Prostate cancer Social History Social History Alcohol intake: never Patient Tobacco Use Status: Never used Tobacco Advance Directives: No Advance Directives Information Provided: No Physical Exam ED Vital Signs: Vital Signs - 24 hr 03/13/22 16:21 03/13/22 18:47 03/13/22 18:50 Temperature 98.8 F 98.1 F Pulse Rate 72 76 76 Respiratory Rate 20 18 Blood Pressure 141/91 H 151/90 H 149/80 H Pulse Oximetry 98 98 Oxygen Delivery Method Room Air Room Air 03/13/22 18:52 03/13/22 18:54 Temperature Pulse Rate 72 80 Respiratory Rate Blood Pressure 156/89 H 153/94 H Pulse Oximetry Oxygen Delivery Method BMI result Body Mass Index 27.8 VSS Appearance: Alert.? Oriented X3.? No acute distress.? Head: Normocephalic, atraumatic, no step-offs or deformities Eyes: Pupils equal, round and reactive to light.? ENT: Pharynx normal.? Neck: Normal inspection.? Neck supple.? CVS: Normal heart rate and rhythm.? Pulses normal.? Respiratory: No respiratory distress.? Breath sounds normal.? Abdomen: Soft and nontender.? Skin: Skin warm and dry.? Normal skin color.? Normal skin turgor.? Extremities: No lower extremity edema.? No calf ttp. 5/5 strength to bilateral upper and lower extremities Neuro: Oriented X 3.? No motor deficit.? No sensory deficit. CN 2-12 intact. Normal finger to nose, heel to vizcarra, steady tandem gait with good cordination Course Reevaluation(s) Reevaluation #1: patient is noted to have a slight leukopenia which appears to be his baseline, CBC appears to be at his baseline. Chemistry with no acute electrolyte abnormalities requiring intervention. Patient's orthostatic vital signs negative. Head CT negative. Patient ambulating with steady gait. He reports improvement after hydration and meclizine. He tells me he is feeling much better. At this time he offers no complaints he tells me he is to baseline. At this time will be discharged home advised him to return with new or worsening symptoms. Time: 21:48 Medical Decision Making [facility] Narrative Medical decision making narrative: 1814 66 yo m presents w/ headache, dizziness and concerns for high BP at home X 3 days PE benign. Normal cerebellar function Low probability for posterior stroke, likley htn and or vertigo. Unlikley ICH Plan- labs, urine, fluids, head ct Medical Records Medical records reviewed: Yes I reviewed the patient's medical records. Lab Data Lab results reviewed: Yes I reviewed the patient's lab results. Result diagrams: 03/13/22 16:31 03/13/22 16:31 Labs: Lab Results 03/13/22 03/13/22 Range/Units 16:31 16:31 WBC 3.4 L (4.8-10.8) X10*3/uL RBC 4.78 (4.60-5.80) X10*6/uL Hgb 14.5 (14.0-18.0) g/dl Hct 41.0 L (42.0-52.0) % MCV 85.8 (80.0-98.0) fL MCH 30.3 (27.0-33.0) pg MCHC 35.4 (31.0-36.0) g/dl RDW 13.2 (11.0-16.0) % Plt Count 201 (160-400) X10*3/uL MPV 9.4 (9.4-12.4) fL Immature Gran % (Auto) 0.0 (0.0-0.4) % Neut % (Auto) 33.4 L (45-73) % Lymph % (Auto) 55.9 H (20-40) % [place] % (Auto) 9.2 (2-11) % Eos % (Auto) 1.2 (0-4) % Baso % (Auto) 0.3 (0-2) % Lymph # (Auto) 1.9 (1.2-4.9) X10*3/uL [place] # (Auto) 0.3 (0.1-1.2) X10*3/uL Eos # (Auto) 0.0 (0.0-0.4) X10*3/uL Baso # (Auto) 0.0 (0.0-0.2) X10*3/uL Abs Immat Gran (auto) 0.00 (0.00-0.03) X10*3/uL Absolute Neuts (auto) 1.1 L (2.0-8.3) x10*3/uL Absolute Nucleated RBC 0.000 (0.0-0.012) X10*3/uL Nucleated RBC % (auto) 0.0 (0.0-0.2) /100WBC Sodium 138 (135-145) mmol/L Potassium 3.9 (3.3-5.1) mmol/L Chloride 104 (96-108) mmol/L Carbon Dioxide 27 (22-29) mmol/L Anion Gap 11 L (12-20) BUN 14 (9-16) mg/dL Creatinine 0.72 (0.5-1.4) mg/dL Estim Creat Clear Calc 94.6 Estimated GFR > 60 Random Glucose 98 (60-115) mg/dL Calcium 9.0 (8.4-10.2) mg/dL Critical Care Time Critical Care Time Critical Care Time: No Discharge Plan Discharge Clinical Impression: Headache, Dizziness Patient Disposition: Home, Self-Care Instructions: Acute Headache (ED), Dizziness (ED) Additional Instructions: Take your medications as prescribed. If you were prescribed antibiotics today, it is important that you take your medication to their entirety, do not skip any doses, do not finish them early. Follow-up with your primary care provider this week. Return to the emergency department with new or worsening symptoms. Such as fevers, chills, chest pain, shortness of breath, nausea, vomiting, dizziness, headache, vision changes, lethargy In case of emergency call 911 Prescriptions: New meclizine 25 mg tablet 25 mg PO BID PRN (Reason: dizziness) Qty: 8 0RF No Action cyclobenzaprine 10 mg tablet 10 mg PO Q8H Qty: 20 0RF lorazepam 0.5 mg tablet 0.5 mg PO BID PRN (Reason: anxiety) Qty: 8 0RF acetic acid 2 % solution 5 drp otic (ears) Q6H Qty: 15 0RF Rx Instructions: apply to (cotton) wick; replace wick every 24 hours levofloxacin 500 mg tablet 500 mg PO DAILY Qty: 7 0RF Referrals: Name,MD Gwyn [Primary Care Provider] - 3 days Stand Alone Forms: Work/School Release
[2022-03-13] MEDS: Meclizine HCl 25 MG TABLET PO (18:44)
[2022-03-13] MEDS: 0.9 % Sodium Chloride 1,000 ML 999 ML IV (18:45)
[2022-03-13 18:47] VITALS: BP 151/90; PULSE 76; RESP 18; TEMP 36.7; O2SAT 98
[2022-03-13 18:50] VITALS: BP 149/80; PULSE 76
[2022-03-13 18:52] VITALS: BP 156/89; PULSE 72
[2022-03-13 18:54] VITALS: BP 153/94; PULSE 80
== END 2022-03-13 22:15 | disposition home or self-care (01) ==
PROVIDERS: Emergency Provider Internal Medicine; PCP Internal Medicine Geriatric Medicine
DX: R51.9 Headache, unspecified (principal); R42 Dizziness and giddiness; Z79.899 Other long term (current) drug therapy
CPT/HCPCS: 36415; 70450; 80048; 85025; 93005; 99284

== ENCOUNTER 2022-07-05 09:54 | Outpatient (REF) | payer MEDICARE, MEDICAID, SELFPAY ==
--- NOTE | ~2022-07-05 | XR_ITS ---
EXAMINATION: XR CERVICAL SPINE CLINICAL INFORMATION: Neck pain. COMPARISON: None. TECHNIQUE: 3 views of the cervical spine were obtained. FINDINGS: There is normal cervical lordosis. The vertebral heights and alignment is normal. There is loss of C3-C4, C4-C5, C5-C6, C6-C7 and C7-T1 disc heights. There is ventral spondylosis at these disc levels more prominent at the C6-C7 and C7-T1 disc levels. There is no visible acute fracture, dislocation or subluxation seen. The prevertebral and paravertebral soft tissues are normal. XR/XR cervical spine 3V IMPRESSION: Degenerative disc changes with ventral spondylosis C3-C4 through C7-T1 disc levels. No visible acute fracture or dislocation seen.
== END 2022-07-05 09:55 | disposition home or self-care (01) ==
LOC: HO.XRAY 09:54
PROVIDERS: PCP Internal Medicine Geriatric Medicine; Visit Provider Family Medicine
DX: M54.2 Cervicalgia (principal)
CPT/HCPCS: 72040

== ENCOUNTER 2022-07-16 02:35 | Emergency (ER) | payer MEDICARE, MEDICAID, SELFPAY ==
[2022-07-16 02:52] VITALS: BP 145/86; PULSE 63; RESP 16; TEMP 36.7; O2SAT 99; BMI 27.6
[2022-07-16 06:16] LABS: MANUAL DIFF FLAG NO
[2022-07-16 06:17] VITALS: BP 151/88; PULSE 61; RESP 16; O2SAT 99
[2022-07-16 06:31] LABS: Basophils Percent Auto 0.8 % (0-2); Eosinophils Absolute Auto 0.1 X10*3/uL (0.0-0.4); Eosinophils Percent Auto 2.4 % (0-4); Hematocrit 44.3 % (42.0-52.0); Hemoglobin 15.3 g/dl (14.0-18.0); Imm Gran Abs Auto 0.01 X10*3/uL (0.00-0.03); Imm Gran Pct Auto 0.3 % (0.0-0.4); Lymphocytes Percent Auto 54.1 % (20-40); Mean Corpuscular HGB Conc 34.5 g/dl (31.0-36.0); Mean Corpuscular Hemoglobin 30.6 pg (27.0-33.0); Mean Corpuscular Volume 88.6 fL (80.0-98.0); Monocytes Absolute Auto 0.3 X10*3/uL (0.1-1.2); Monocytes Percent Auto 8.4 % (2-11); Neutrophils Absolute Auto 1.3 x10*3/uL (2.0-8.3); Platelet Count 212 X10*3/uL (160-400); Red Cell Distribution Width 13.2 % (11.0-16.0); White Blood Count 3.7 X10*3/uL (4.8-10.8)
[2022-07-16 06:37] LABS: Alanine Aminotransferase 30 U/L (0-40); Albumin Level 4.4 g/dL (3.5-5.0); Alkaline Phosphatase 71 U/L (39-117); Anion Gap 15 (12-20); Aspartate Amino Transferase 19 U/L (5-37); Bilirubin Total 0.8 mg/dL (0.0-1.0); Blood Urea Nitrogen 12 mg/dL (9-16); Calcium 9.4 mg/dL (8.4-10.2); Carbon Dioxide 29 mmol/L (22-29); Chloride 105 mmol/L (96-108); Creatinine Clr Calc Pharmacy 88.3; Estimated Glomerular Filt Rate > 60; Glucose Random 94 mg/dL (60-115); Potassium 4.6 mmol/L (3.3-5.1); Sodium 144 mmol/L (135-145); Total Protein 7.2 g/dL (6.5-8.0)
--- NOTE | 2022-07-16 08:00 | ED_ITS ---
HPI - URI/Sore Throat General Chief Complaint: Upper Respiratory Symptoms Stated Complaint: cough, itchy throat Time Seen by Provider: 07/16/22 07:41 Source: patient and educational sign language interpreter Mode of arrival: ambulatory Limitations: no limitations History of Present Illness HPI Narrative: 66 yo male with hx of BPH, HTN vaccinated for COVID here with c/o sore throat, runny nose dry cough x 5 days. No sick contacts. No other complaints no CP/SOB MD elicited complaint: cough, sore throat and rhinorrhea Onset (ago): day(s) (5) Consistency: intermittent Severity: mild Description of mucous: clear Able to tolerate fluids by mouth: Yes Exacerbating factors: nothing Relieving factors: nothing Associated symptoms: rhinorrhea, sore throat and cough Treatments prior to arrival: none Related Data Previous Rx's Medication Instructions Recorded lorazepam 0.5 mg tablet 0.5 mg PO BID PRN anxiety #8 tabs 08/17/21 acetic acid 2 % ear solution 5 drp otic (ears) Q6H #15 mL 12/03/21 levofloxacin 500 mg tablet 500 mg PO DAILY #7 tabs 12/03/21 cyclobenzaprine 10 mg tablet 10 mg PO Q8H #20 tabs 12/20/21 meclizine 25 mg tablet 25 mg PO BID PRN dizziness #8 tabs 03/13/22 azithromycin 250 mg tablet See Rx Instructions PO .COMPLEX #6 07/16/22 tabs prednisone 20 mg tablet 40 mg PO DAILY 5 days #10 tabs 07/16/22 Allergies Allergy/AdvReac Type Severity Reaction Status Date / Time diphenhydramine Allergy Unknown UNKNOWN Verified 07/16/22 02:51 [From BENADRYL] penicillin G [PENICILLIN G] Allergy Unknown HIVES Verified 07/16/22 02:51 Review of Systems Review of Systems: Constitutional : no Fever, no Chills ENT/Mouth : positive sore throat, positive runny nose Eyes: No Discharge Cardiovascular : No Chest Pain, No SOB Respiratory : pos Cough, No Sputum Gastrointestinal : No Nausea, No Vomiting, No Diarrhea Genitourinary : No Dysuria, No Urinary Frequency Musculoskeletal : no Myalgia Skin : No rash Neuro : No Headache PMFSH Past Medical History Attestation statement: The following information was validated with the patient. Medical History Arthritis Asthma Fibromyalgia Gastritis Glaucoma Prostate cancer Social History Social History Alcohol intake: never Patient Tobacco Use Status: Never used Tobacco Advance Directives: No Advance Directives Information Provided: No Physical Exam Vital Signs: Vital Signs: Last Vital Signs Temp 98.1 F 07/16/22 02:52 Pulse 61 07/16/22 06:17 Resp 16 07/16/22 06:17 BP 151/88 H 07/16/22 06:17 Pulse Ox 99 07/16/22 06:17 O2 Del Method 07/16/22 06:17 BMI result Body Mass Index 27.6 Appearance: Alert. Oriented X3. No acute distress. Eyes: Pupils equal, round and reactive to light. ENT: Pharynx normal. Neck: Normal inspection. Neck supple. CVS: Normal heart rate and rhythm. Pulses normal. Respiratory: No respiratory distress. Breath sounds normal. Abdomen: Soft and nontender. Skin: Skin warm and dry. Normal skin color. Normal skin turgor. Extremities: No lower extremity edema. No calf ttp Neuro: Oriented X 3. No motor deficit. No sensory deficit. MDM - URI/Sore Throat MDM Narrative Medical decision making narrative: 66 yo male with BPH, HTN, asthma here with runny nose, sore throat dry cough - clear lungs, not toxic, normal O2 sats - labs normal at baseline will need COVID/flu swab. He is not toxic appearing at this time suspect viral infection 5 days of cough without fever and clear lungs pneumonia seems unlikely. No wheezing. Dispo per results and findings. Lab Data Result diagrams: 07/16/22 06:08 07/16/22 06:08 Labs: Lab Results 07/16/22 07/16/22 07/16/22 Range/Units 06:08 06:08 07:53 WBC 3.7 L (4.8-10.8) X10*3/uL RBC 5.00 (4.60-5.80) X10*6/uL Hgb 15.3 (14.0-18.0) g/dl Hct 44.3 (42.0-52.0) % MCV 88.6 (80.0-98.0) fL MCH 30.6 (27.0-33.0) pg MCHC 34.5 (31.0-36.0) g/dl RDW 13.2 (11.0-16.0) % Plt Count 212 (160-400) X10*3/uL MPV 9.0 L (9.4-12.4) fL Immature Gran % (Auto) 0.3 (0.0-0.4) % Neut % (Auto) 34.0 L (45-73) % Lymph % (Auto) 54.1 H (20-40) % [place] % (Auto) 8.4 (2-11) % Eos % (Auto) 2.4 (0-4) % Baso % (Auto) 0.8 (0-2) % Lymph # (Auto) 2.0 (1.2-4.9) X10*3/uL [place] # (Auto) 0.3 (0.1-1.2) X10*3/uL Eos # (Auto) 0.1 (0.0-0.4) X10*3/uL Baso # (Auto) 0.0 (0.0-0.2) X10*3/uL Abs Immat Gran (auto) 0.01 (0.00-0.03) X10*3/uL Absolute Neuts (auto) 1.3 L (2.0-8.3) x10*3/uL Absolute Nucleated RBC 0.000 (0.0-0.012) X10*3/uL Nucleated RBC % (auto) 0.0 (0.0-0.2) /100WBC Sodium 144 (135-145) mmol/L Potassium 4.6 (3.3-5.1) mmol/L Chloride 105 (96-108) mmol/L Carbon Dioxide 29 (22-29) mmol/L Anion Gap 15 (12-20) BUN 12 (9-16) mg/dL Creatinine 0.77 (0.5-1.4) mg/dL Estim Creat Clear Calc 88.3 Estimated GFR > 60 Random Glucose 94 (60-115) mg/dL Calcium 9.4 (8.4-10.2) mg/dL Total Bilirubin 0.8 (0.0-1.0) mg/dL AST 19 (5-37) U/L ALT 30 (0-40) U/L Alkaline Phosphatase 71 D (39-117) U/L Total Protein 7.2 (6.5-8.0) g/dL Albumin 4.4 (3.5-5.0) g/dL COVID-19 ([place]) (Negative) COVID-19 Clin Com Influenza Type A ([place]) Negative (Negative) Influenza Type B ([place]) Negative (Negative) Influenza A & B Note See Note 07/16/22 Range/Units 07:53 WBC (4.8-10.8) X10*3/uL RBC (4.60-5.80) X10*6/uL Hgb (14.0-18.0) g/dl Hct (42.0-52.0) % MCV (80.0-98.0) fL MCH (27.0-33.0) pg MCHC (31.0-36.0) g/dl RDW (11.0-16.0) % Plt Count (160-400) X10*3/uL MPV (9.4-12.4) fL Immature Gran % (Auto) (0.0-0.4) % Neut % (Auto) (45-73) % Lymph % (Auto) (20-40) % [place] % (Auto) (2-11) % Eos % (Auto) (0-4) % Baso % (Auto) (0-2) % Lymph # (Auto) (1.2-4.9) X10*3/uL [place] # (Auto) (0.1-1.2) X10*3/uL Eos # (Auto) (0.0-0.4) X10*3/uL Baso # (Auto) (0.0-0.2) X10*3/uL Abs Immat Gran (auto) (0.00-0.03) X10*3/uL Absolute Neuts (auto) (2.0-8.3) x10*3/uL Absolute Nucleated RBC (0.0-0.012) X10*3/uL Nucleated RBC % (auto) (0.0-0.2) /100WBC Sodium (135-145) mmol/L Potassium (3.3-5.1) mmol/L Chloride (96-108) mmol/L Carbon Dioxide (22-29) mmol/L Anion Gap (12-20) BUN (9-16) mg/dL Creatinine (0.5-1.4) mg/dL Estim Creat Clear Calc Estimated GFR Random Glucose (60-115) mg/dL Calcium (8.4-10.2) mg/dL Total Bilirubin (0.0-1.0) mg/dL AST (5-37) U/L ALT (0-40) U/L Alkaline Phosphatase (39-117) U/L Total Protein (6.5-8.0) g/dL Albumin (3.5-5.0) g/dL COVID-19 ([place]) Negative (Negative) COVID-19 Clin Com See Note Influenza Type A ([place]) (Negative) Influenza Type B ([place]) (Negative) Influenza A & B Note Discharge Plan Discharge Clinical Impression: Bronchitis Patient Disposition: Home, Self-Care Instructions: Acute Bronchitis (ED) Additional Instructions: return to ED for any worsening symptoms or concerns NO COVID NO INFLUENZA Prescriptions: New azithromycin 250 mg tablet See Rx Instructions .ROUTE .COMPLEX Qty: 6 0RF Rx Instructions: For 250 mg dose pack: take 500 mg today (day 1), then 250 mg for 4 days (days 2-5) prednisone 20 mg tablet 40 mg PO DAILY 5 Days Qty: 10 0RF No Action cyclobenzaprine 10 mg tablet 10 mg PO Q8H Qty: 20 0RF lorazepam 0.5 mg tablet 0.5 mg PO BID PRN (Reason: anxiety) Qty: 8 0RF acetic acid 2 % solution 5 drp otic (ears) Q6H Qty: 15 0RF Rx Instructions: apply to (cotton) wick; replace wick every 24 hours levofloxacin 500 mg tablet 500 mg PO DAILY Qty: 7 0RF meclizine 25 mg tablet 25 mg PO BID PRN (Reason: dizziness) Qty: 8 0RF Referrals: Name,MD Gwyn [Primary Care Provider] - 5 days (if not better) Print Language: [place]
[2022-07-16 08:40] LABS: COVID-19 Test Negative (Negative); IDNOW Serial# 16C4AD1C; IDNOW Serial# 55D5AD1C; Influenza A Negative (Negative); Influenza B2 Negative (Negative)
== END 2022-07-16 08:49 | disposition home or self-care (01) ==
PROVIDERS: Emergency Provider Emergency Medicine; PCP Internal Medicine Geriatric Medicine
DX: J40 Bronchitis, not specified as acute or chronic (principal); J02.9 Acute pharyngitis, unspecified; R05.9 Cough, unspecified; Z20.822 Contact with and (suspected) exposure to COVID-19; Z79.899 Other long term (current) drug therapy
CPT/HCPCS: 36415; 80053; 85025; 87502; 87635; 99282; 99283

== ENCOUNTER 2022-08-09 11:21 | Outpatient (REF) | payer MEDICARE, MEDICAID, SELFPAY ==
--- NOTE | ~2022-08-09 | US_ITS ---
EXAMINATION: US ABDOMEN COMPLETE CLINICAL INFORMATION: Epigastric pain. COMPARISON: None TECHNIQUE: Real-time imaging of the abdominal viscera. FINDINGS: PANCREAS: Normal. ABDOMINAL AORTA: The proximal, mid, and distal segments are normal in caliber. INFERIOR VENA CAVA: Visualized portions are normal. LIVER: Normal. The liver is normal in size. The liver contour is normal. Parenchymal echogenicity is normal. No focal hepatic lesion. There is no intrahepatic biliary duct dilatation seen. There is a hepatopedal flow seen in the portosystemic clinic confluence and middle portal vein. However flow is hepatopedal in the splenic vein. GALLBLADDER: Normal. The gallbladder is physiologically distended without evidence of stones, sludge, polyps, wall thickening or pericholecystic fluid. COMMON BILE DUCT: Not seen. RIGHT KIDNEY: Normal. No hydronephrosis. No renal calculi or focal parenchymal lesions. The kidney measures 10.8 cm in maximum dimension. LEFT KIDNEY: Normal. No hydronephrosis. No renal calculi or focal parenchymal lesions. The kidney measures 11.3 cm in maximum dimension. SPLEEN: Normal. The spleen measures 11.7 cm in maximum dimension. FREE FLUID: None. US/US abdomen complete IMPRESSION: Unremarkable complete abdomen ultrasound except for hepatofugal flow in the splenic vein. Normal hepatopedal flow seen at portosystemic confluence and middle portal vein.
== END 2022-08-09 11:22 | disposition home or self-care (01) ==
LOC: HO.US 11:21
PROVIDERS: Visit Provider Family Medicine
DX: R10.13 Epigastric pain (principal)
CPT/HCPCS: 76700

== ENCOUNTER 2022-10-02 20:39 | Emergency (ER) | payer MEDICARE, MEDICAID, SELFPAY ==
--- NOTE | 2022-10-02 20:45 | ECG_ITS ---
Test Reason : HBP Blood Pressure : / mmHG Vent. Rate : 072 BPM Atrial Rate : 072 BPM P-R Int : 134 ms QRS Dur : 094 ms QT Int : 390 ms P-R-T Axes : 045 -17 025 degrees QTc Int : 427 ms Normal sinus rhythm Minimal voltage criteria for LVH, may be normal variant ( R in aVL ) Nonspecific T wave abnormality Abnormal ECG When compared to the previous EKG of No significant changes seen Referred By: Generic ED Physician Electronically Signed By:Gautam Dalal
[2022-10-02 20:46] VITALS: BP 166/85; BP 179/100; PULSE 74; RESP 18; TEMP 37.1; O2SAT 98; O2SAT 99; BMI 27.8
--- NOTE | 2022-10-02 21:14 | ED_ITS ---
HPI - Chest Pain General Chief Complaint: Chest Pain Stated Complaint: High BP, 179/99 per EMS Time Seen by Provider: 10/02/22 21:12 Source: patient Mode of arrival: ambulatory Limitations: no limitations History of Present Illness HPI narrative: Patient with history of hypertension anxiety used to be Norvasc 10 mg daily which was about 2 months as blood pressure was normal today prior to arrival patient was feeling anxious checked his blood pressure was 186/106 repeat blood pressure was 172/100 on arrival patient's blood pressure was 166/85 patient denies any chest pain or shortness of breath Related Data Previous Rx's Medication Instructions Recorded lorazepam 0.5 mg tablet 0.5 mg PO BID PRN anxiety #8 tabs 08/17/21 acetic acid 2 % ear solution 5 drp otic (ears) Q6H #15 mL 12/03/21 levofloxacin 500 mg tablet 500 mg PO DAILY #7 tabs 12/03/21 cyclobenzaprine 10 mg tablet 10 mg PO Q8H #20 tabs 12/20/21 meclizine 25 mg tablet 25 mg PO BID PRN dizziness #8 tabs 03/13/22 azithromycin 250 mg tablet See Rx Instructions PO .COMPLEX #6 07/16/22 tabs prednisone 20 mg tablet 40 mg PO DAILY 5 days #10 tabs 07/16/22 lorazepam 1 mg tablet (Ativan) 1 mg PO BEDTIME PRN anxiety #14 10/02/22 tabs Allergies Allergy/AdvReac Type Severity Reaction Status Date / Time diphenhydramine Allergy Unknown UNKNOWN Verified 07/16/22 02:51 [From BENADRYL] penicillin G [PENICILLIN G] Allergy Unknown HIVES Verified 07/16/22 02:51 Review of Systems Review of Systems: Yes all other systems are reviewed and are negative [facility] Past Medical History Medical History Arthritis Asthma Fibromyalgia Gastritis Glaucoma Prostate cancer Social History Social History Alcohol intake: never Patient Tobacco Use Status: Never used Tobacco Advance Directives: No Advance Directives Information Provided: No Physical Exam Vital Signs: Vital Signs: Last Vital Signs Temp 98.6 F 10/02/22 22:00 Pulse 67 10/02/22 22:00 Resp 16 10/02/22 22:00 BP 147/81 H 10/02/22 22:00 Pulse Ox 96 10/02/22 22:00 O2 Del Method 10/02/22 22:00 BMI result Body Mass Index 27.8 Appearance: Alert. Oriented X3. No acute distress. Anxious Eyes: PERRLA, No Nystagmus ENT: Pharynx normal. Oral Mucosa moist Neck: Normal inspection. Neck supple. CVS: Normal heart rate and rhythm. Pulses normal. Respiratory: No respiratory distress. Equal air entry bilateral, no wheezing/rales/rhonchi Abdomen: Soft and nontender. Bowel sounds are present, no mass palpable, no CVA tenderness Skin: Skin warm and dry. Normal skin color. Normal skin turgor. Extremities: No lower extremity edema. No calf tenderness Neuro: Oriented X 3. No motor deficit. No sensory deficit.No cerebellar signs , cranial nerves II-XII intact Medications Administered Discontinued Medications Generic Name Dose Route Start Last Admin Trade Name Freq PRN Reason Stop Dose Admin Lorazepam 1 mg 10/02/22 21:54 10/02/22 21:59 Lorazepam 1 Mg Tablet PO 10/02/22 21:55 1 mg ONCE ONE Administration Medical Decision Making Medical Decision Making [facility] Narrative: Patient feeling much better after Ativan blood pressure improved to 130/81 although patient took the pill at home. Patient advised to follow-up with his PCP started on Ativan Lab Data [facility] Lab Attestation statement: I reviewed the patient's lab results. 10/02/22 22:04 10/02/22 22:04 Labs: Lab Results 10/02/22 10/02/22 10/02/22 Range/Units 22:04 22:04 22:04 WBC 3.5 L (4.8-10.8) X10*3/uL RBC 5.12 (4.60-5.80) X10*6/uL Hgb 15.2 (14.0-18.0) g/dl Hct 43.7 (42.0-52.0) % MCV 85.4 (80.0-98.0) fL MCH 29.7 (27.0-33.0) pg MCHC 34.8 (31.0-36.0) g/dl RDW 12.4 (11.0-16.0) % Plt Count 203 (160-400) X10*3/uL MPV 8.9 L (9.4-12.4) fL Immature Gran % (Auto) 0.0 (0.0-0.4) % Neut % (Auto) 31.8 L (45-73) % Lymph % (Auto) 52.1 H (20-40) % [place] % (Auto) 9.5 (2-11) % Eos % (Auto) 5.2 H (0-4) % Baso % (Auto) 1.4 (0-2) % Lymph # (Auto) 1.8 (1.2-4.9) X10*3/uL [place] # (Auto) 0.3 (0.1-1.2) X10*3/uL Eos # (Auto) 0.2 (0.0-0.4) X10*3/uL Baso # (Auto) 0.1 (0.0-0.2) X10*3/uL Abs Immat Gran (auto) 0.00 (0.00-0.03) X10*3/uL Absolute Neuts (auto) 1.1 L (2.0-8.3) x10*3/uL Absolute Nucleated RBC 0.000 (0.0-0.012) X10*3/uL Nucleated RBC % (auto) 0.0 (0.0-0.2) /100WBC Sodium 140 (135-145) mmol/L Potassium 4.1 (3.3-5.1) mmol/L Chloride 107 (96-108) mmol/L Carbon Dioxide 24 (22-29) mmol/L Anion Gap 13 (12-20) BUN 8 L (9-16) mg/dL Creatinine 0.75 (0.5-1.4) mg/dL Estim Creat Clear Calc 90.8 Estimated GFR > 60 Random Glucose 116 H (60-115) mg/dL Calcium 9.0 (8.4-10.2) mg/dL Total Bilirubin 0.9 (0.0-1.0) mg/dL AST 14 (5-37) U/L ALT 11 (0-40) U/L Alkaline Phosphatase 64 (39-117) U/L Troponin I High Sens < 3.5 (<3.5-35.0) ng/L Total Protein 6.5 (6.5-8.0) g/dL Albumin 4.1 (3.5-5.0) g/dL Independent Interpretation I performed an independent interpretation of an: EKG Interpretation: Normal sinus rhythm heart rate 72 beats per minute LVH no acute restricted in no acute ischemia Discharge Plan Discharge Clinical Impression: Anxiety, Hypertension Patient Disposition: Home, Self-Care Instructions: Hypertension (ED), Anxiety (ED) Additional Instructions: Likely your blood pressure was elevated secondary to anxiety Take medication as prescribed Check blood pressure at home it should be less than 140/90 If the blood pressure is persistently elevated start taking Norvasc 5 mg daily and follow up with your PCP Prescriptions: New lorazepam [Ativan] 1 mg tablet 1 mg PO BEDTIME PRN (Reason: anxiety) Qty: 14 0RF No Action cyclobenzaprine 10 mg tablet 10 mg PO Q8H Qty: 20 0RF lorazepam 0.5 mg tablet 0.5 mg PO BID PRN (Reason: anxiety) Qty: 8 0RF acetic acid 2 % solution 5 drp otic (ears) Q6H Qty: 15 0RF Rx Instructions: apply to (cotton) wick; replace wick every 24 hours levofloxacin 500 mg tablet 500 mg PO DAILY Qty: 7 0RF meclizine 25 mg tablet 25 mg PO BID PRN (Reason: dizziness) Qty: 8 0RF azithromycin 250 mg tablet See Rx Instructions .ROUTE .COMPLEX Qty: 6 0RF Rx Instructions: For 250 mg dose pack: take 500 mg today (day 1), then 250 mg for 4 days (days 2-5) prednisone 20 mg tablet 40 mg PO DAILY 5 Days Qty: 10 0RF
[2022-10-02] MEDS: LORazepam 1 MG TABLET PO (21:59)
[2022-10-02 22:00] VITALS: BP 147/81; PULSE 67; RESP 16; TEMP 37; O2SAT 96
[2022-10-02 22:11] LABS: Basophils Absolute Auto 0.1 X10*3/uL (0.0-0.2); Basophils Percent Auto 1.4 % (0-2); Eosinophils Absolute Auto 0.2 X10*3/uL (0.0-0.4); Eosinophils Percent Auto 5.2 % (0-4); Hematocrit 43.7 % (42.0-52.0); Hemoglobin 15.2 g/dl (14.0-18.0); Lymphocytes Absolute Auto 1.8 X10*3/uL (1.2-4.9); Lymphocytes Percent Auto 52.1 % (20-40); MANUAL DIFF FLAG NO; Mean Corpuscular HGB Conc 34.8 g/dl (31.0-36.0); Mean Corpuscular Hemoglobin 29.7 pg (27.0-33.0); Mean Corpuscular Volume 85.4 fL (80.0-98.0); Mean Platelet Volume 8.9 fL (9.4-12.4); Monocytes Absolute Auto 0.3 X10*3/uL (0.1-1.2); Monocytes Percent Auto 9.5 % (2-11); Neutrophils Absolute Auto 1.1 x10*3/uL (2.0-8.3); Neutrophils Percent Auto 31.8 % (45-73); Platelet Count 203 X10*3/uL (160-400); Red Blood Count 5.12 X10*6/uL (4.60-5.80); Red Cell Distribution Width 12.4 % (11.0-16.0); White Blood Count 3.5 X10*3/uL (4.8-10.8)
[2022-10-02 22:35] LABS: Alanine Aminotransferase 11 U/L (0-40); Albumin Level 4.1 g/dL (3.5-5.0); Alkaline Phosphatase 64 U/L (39-117); Anion Gap 13 (12-20); Aspartate Amino Transferase 14 U/L (5-37); Bilirubin Total 0.9 mg/dL (0.0-1.0); Blood Urea Nitrogen 8 mg/dL (9-16); Carbon Dioxide 24 mmol/L (22-29); Chloride 107 mmol/L (96-108); Creatinine Clr Calc Pharmacy 90.8; Estimated Glomerular Filt Rate > 60; Glucose Random 116 mg/dL (60-115); Potassium 4.1 mmol/L (3.3-5.1); Sodium 140 mmol/L (135-145); Total Protein 6.5 g/dL (6.5-8.0)
[2022-10-02 22:41] LABS: Troponin-I High Sensitivity < 3.5 ng/L (<3.5-35.0)
[2022-10-02 23:47] VITALS: BP 117/65; PULSE 67; RESP 16; TEMP 36.7; O2SAT 96
== END 2022-10-02 23:57 | disposition home or self-care (01) ==
PROVIDERS: Emergency Provider Internal Medicine; PCP Internal Medicine Geriatric Medicine
DX: F41.9 Anxiety disorder, unspecified (principal); I10 Essential (primary) hypertension; Z79.899 Other long term (current) drug therapy
CPT/HCPCS: 36415; 80053; 84484; 85025; 93005; 99283; 99284

== ENCOUNTER 2023-05-15 17:52 | Outpatient (REF) | payer OTHER, MEDICAID, SELFPAY ==
[2023-05-15 20:27] LABS: Influenza A PCR NEGATIVE (Negative); Influenza B PCR NEGATIVE (Negative); Resp Syncy Virus RNA Qual PCR NEGATIVE (Negative); SARS COV2 PCR INHOUSE NEGATIVE (Negative)
== END 2023-05-15 17:53 | disposition home or self-care (01) ==
LOC: HO.HHCLNP 17:52
PROVIDERS: Visit Provider Emergency Medicine
DX: Z20.822 Contact with and (suspected) exposure to COVID-19 (principal); R05.9 Cough, unspecified
CPT/HCPCS: 0241U

== ENCOUNTER 2023-05-20 14:34 | Emergency (ER) | payer OTHER, MEDICAID, SELFPAY ==
[2023-05-20 14:37] VITALS: BP 146/79; PULSE 56; RESP 18; TEMP 36.7; O2SAT 98; BMI 27.5
--- NOTE | 2023-05-20 14:37 | ED.MALEGU ---
HPI - Male Genitourinary General Chief complaint: Urogenital-Male Stated complaint: Genital pain Time Seen by Provider: 05/20/23 15:03 Source: patient Mode of arrival: ambulatory Limitations: no limitations History of Present Illness HPI Narrative: pt noted this am a blister in the tip of the penis,denies systemic symptoms such as fever/dysuria /abdominal pain Complaint: other (blister tip of the penis) Onset (ago): hour(s) (8) Location: penis Severity: mild Quality: aching Relieving factors: none Exacerbating factors: none Context: new medication Related Data Home Medications Medication Instructions Recorded Confirmed albuterol sulfate 90 mcg/actuation 0 mcg inhalation 01/03/23 aerosol inhaler amlodipine 10 mg tablet 10 mg PO DAILY 01/03/23 duloxetine 30 mg capsule,delayed 30 mg PO DAILY 01/03/23 release fluticasone propionate 50 1 spray intranasal DAILY 01/03/23 mcg/actuation nasal spray,suspension loratadine 10 mg tablet 10 mg PO QAM 01/03/23 omeprazole 40 mg capsule,delayed 40 mg PO BID 01/03/23 release tamsulosin 0.4 mg capsule 0.4 mg PO BEDTIME 01/03/23 trazodone 50 mg tablet 50 mg PO BEDTIME 01/03/23 Previous Rx's Medication Instructions Recorded lorazepam 0.5 mg tablet 0.5 mg PO BID PRN anxiety #8 tabs 08/17/21 acetic acid 2 % ear solution 5 drp otic (ears) Q6H #15 mL 12/03/21 levofloxacin 500 mg tablet 500 mg PO DAILY #7 tabs 12/03/21 cyclobenzaprine 10 mg tablet 10 mg PO Q8H #20 tabs 12/20/21 meclizine 25 mg tablet 25 mg PO BID PRN dizziness #8 tabs 03/13/22 azithromycin 250 mg tablet See Rx Instructions PO .COMPLEX #6 07/16/22 tabs prednisone 20 mg tablet 40 mg PO DAILY 5 days #10 tabs 07/16/22 lorazepam 1 mg tablet (Ativan) 1 mg PO BEDTIME PRN anxiety #14 10/02/22 tabs bacitracin 500 unit/gram topical 1 appl topical Q8H #14 grams 05/20/23 ointment (Bacitraycin Plus) oxycodone 5 mg capsule 5 mg PO Q8H PRN pain #12 caps 05/20/23 Allergies Allergy/AdvReac Type Severity Reaction Status Date / Time diphenhydramine Allergy Unknown UNKNOWN Verified 05/20/23 14:44 [From BENADRYL] penicillin G [PENICILLIN G] Allergy Unknown HIVES Verified 05/20/23 14:44 Review of Systems Constitutional: Constitutional: Reports no additional constitutional complaints and Denies fever(s) Gastrointestinal: Gastrointestinal: Denies nausea and Denies vomiting [facility] Past Medical History Medical History Arthritis Asthma Bladder outlet obstruction Esophageal reflux Gastritis Glaucoma Nephrolithiasis Nocturia Osteoarthritis Prostate cancer Urinary frequency Urinary hesitancy Urinary retention Surgical History History of hemorrhoidectomy (~04/02/13) History of total right hip replacement Social History Social History Alcohol intake: never Patient Tobacco Use Status: Never used Tobacco Advance Directives: No Advance Directives Information Provided: No Physical Exam Vital Signs: Vital Signs: Last Vital Signs Temp 98.0 F 05/20/23 14:37 Pulse 56 05/20/23 14:37 Resp 18 05/20/23 14:37 BP 146/79 H 05/20/23 14:37 Pulse Ox 98 05/20/23 14:37 O2 Del Method Room Air 05/20/23 14:37 BMI result Body Mass Index 27.5 Const: Other: He looks well, he is not toxic-appearing. General: healthy appearing, comfortable, no acute distress, well developed, alert and awake Nutritional Appearance: average body habitus Orientation/consciousness: patient oriented x3 Limitations: no limitations HEENT: Head: Yes normal to inspection General nose exam: Normal external nose present Chest: Chest palpation & inspection: normal inspection of the chest Resp: Effort & Inspection: normal respiratory effort Auscultation: clear to auscultation bilaterally Cardio: Jugular venous distension: no JVD Rate: regular rate Rhythm: regular rhythm GI: Inspection: Yes normal to inspection Palpation (GI): Soft to palpation Auscultation: normal bowel sounds : Other: There is a large blister and the tip of the penis. Skin: General skin exam: no rashes or lesions noted and elasticity normal Lesions: no lesions Rashes: no rashes Hair: normal Neuro: General: patient oriented x3 Cranial nerves: Yes CN's II-XII intact bilaterally Coordination: [id number] test normal Extrem: General: Yes normal to inspection Course Course Course Narrative: This is an RME: Additional HPI, ROS, PE not included below will be deferred to primary provider. Patient is a 59-year-old male presents emergency department for evaluation of testicular itch and a ball on his penis x 4 days. Reports this happened before, he received a cream, does not recall the name, and it resolved. Having dysuria associated with this. Declines concern for STI. Requesting evaluation from a male provider only. He also endorses a headache. Denies fevers, chills, nausea, vomiting, lower back pain, abdominal pain. Plan: U/A , CT/NG Medical Decision Making Medical Decision Making [facility] Narrative: Patient presented with a large blister on the tip of the penis, I sent a picture of the lesion to the urology Dr. Nelson, he thinks that he will need only bacitracin. Differential Diagnosis Differential Diagnoses: The differential diagnosis associated with the presentation includes Traumatic blister/infection/ST-T Admission/Observation Consideration of admission/observation: Escalation of care including admission/observation considered Consult Healthcare Provider Management of the patient was discussed with: Call Centre Supervisor (Dr Nelson) Lab Data [facility] Lab Attestation statement: I reviewed the patient's lab results. Labs: Lab Results 05/20/23 Range/Units 14:57 Urine Color Yellow Urine Appearance Clear Urine pH 5.5 (5.0-9.0) Ur Specific [place] 1.010 (1.005-1.025) Urine Protein Negative (Neg-Trace) mg/dL Urine Glucose (UA) Negative (Negative) mg/dL Urine Ketones Negative (Negative) mg/dL Urine Blood Negative (Negative) Urine Nitrite Negative (Negative) Ur Leukocyte Esterase Negative (Negative) Discharge Plan Discharge Clinical Impression: Blister (nonthermal) of penis, initial encounter Patient Disposition: Home, Self-Care Instructions: Blister (ED) Additional Instructions: Apply the bacitracin twice a day follow-up with urology Prescriptions: New oxycodone 5 mg capsule 5 mg PO Q8H PRN (Reason: pain) Qty: 12 0RF Rx Instructions: Partial Fill upon patient request. bacitracin [Bacitraycin Plus] 500 unit/gram ointment 1 appl topical Q8H Qty: 14 0RF No Action albuterol sulfate 90 mcg/actuation HFA aerosol inhaler 0 mcg inhalation loratadine 10 mg tablet 10 mg PO QAM trazodone 50 mg tablet 50 mg PO BEDTIME tamsulosin 0.4 mg capsule 0.4 mg PO BEDTIME omeprazole 40 mg capsule,delayed release(DR/EC) 40 mg PO BID amlodipine 10 mg tablet 10 mg PO DAILY fluticasone propionate 50 mcg/actuation spray,suspension 1 spray intranasal DAILY duloxetine 30 mg capsule,delayed release(DR/EC) 30 mg PO DAILY cyclobenzaprine 10 mg tablet 10 mg PO Q8H Qty: 20 0RF lorazepam [Ativan] 1 mg tablet 1 mg PO BEDTIME PRN (Reason: anxiety) Qty: 14 0RF lorazepam 0.5 mg tablet 0.5 mg PO BID PRN (Reason: anxiety) Qty: 8 0RF acetic acid 2 % solution 5 drp otic (ears) Q6H Qty: 15 0RF Rx Instructions: apply to (cotton) wick; replace wick every 24 hours levofloxacin 500 mg tablet 500 mg PO DAILY Qty: 7 0RF meclizine 25 mg tablet 25 mg PO BID PRN (Reason: dizziness) Qty: 8 0RF azithromycin 250 mg tablet See Rx Instructions .ROUTE .COMPLEX Qty: 6 0RF Rx Instructions: For 250 mg dose pack: take 500 mg today (day 1), then 250 mg for 4 days (days 2-5) prednisone 20 mg tablet 40 mg PO DAILY 5 Days Qty: 10 0RF Referrals: Kiko Nelson MD [Physician] - 2 days Interventions: ED Discharge Assessment Last Done: 05/20/23 15:37 Discharge Date/Time: 05/20/23 15:46
[2023-05-20 15:08] LABS: Appearance Urine Clear; Color Urine Yellow; Glucose Urine UA Negative (Negative); Leukocyte Esterase Urine Negative (Negative); Nitrite Urine Negative (Negative); PH 5.5 (5.0-9.0); Urine Blood Negative (Negative); Urine Ketones Negative (Negative); Urine Protein Negative (Neg-Trace)
[2023-05-21 05:13] LABS: CT PCR NOT DETECTED (Not Detect.); NG PCR NOT DETECTED (Not Detect.)
== END 2023-05-20 15:46 | disposition home or self-care (01) ==
PROVIDERS: Nurse Practitioner Family; Emergency Provider Emergency Medicine; PCP Internal Medicine Geriatric Medicine
DX: N48.5 Ulcer of penis (principal)
CPT/HCPCS: 0353U; 81003; 99282; 99283

== ENCOUNTER 2023-08-08 17:20 | Outpatient (REF) | payer OTHER, MEDICAID, SELFPAY ==
[2023-08-09 12:32] LABS: Influenza A PCR NEGATIVE (Negative); Influenza B PCR NEGATIVE (Negative); Resp Syncy Virus RNA Qual PCR NEGATIVE (Negative); SARS COV2 PCR INHOUSE NEGATIVE (Negative)
== END 2023-08-08 17:21 | disposition home or self-care (01) ==
LOC: HO.HHCLNP 17:20
PROVIDERS: Visit Provider Emergency Medicine
DX: Z11.52 Encounter for screening for COVID-19 (principal); R68.89 Other general symptoms and signs; Z20.822 Contact with and (suspected) exposure to COVID-19
CPT/HCPCS: 0241U; 87070

== ENCOUNTER 2023-10-03 16:14 | Outpatient (REF) | payer OTHER, SELFPAY ==
[2023-10-03 18:04] LABS: Basophils Absolute Auto 0.1 X10*3/uL (0.0-0.2); Basophils Percent Auto 1.7 % (0-2); Eosinophils Absolute Auto 0.3 X10*3/uL (0.0-0.4); Eosinophils Percent Auto 8.7 % (0-4); Hematocrit 43.6 % (42.0-52.0); Hemoglobin 15.1 g/dl (14.0-18.0); Lymphocytes Absolute Auto 2.1 X10*3/uL (1.2-4.9); Lymphocytes Percent Auto 58.1 % (20-40); MANUAL DIFF FLAG SCAN; Mean Corpuscular HGB Conc 34.6 g/dl (31.0-36.0); Mean Corpuscular Hemoglobin 30.6 pg (27.0-33.0); Mean Corpuscular Volume 88.4 fL (80.0-98.0); Monocytes Absolute Auto 0.3 X10*3/uL (0.1-1.2); Monocytes Percent Auto 8.1 % (2-11); Neutrophils Absolute Auto 0.8 x10*3/uL (2.0-8.3); Neutrophils Percent Auto 23.4 % (45-73); Platelet Count 216 X10*3/uL (160-400); Red Blood Count 4.93 X10*6/uL (4.60-5.80); Red Cell Distribution Width 12.5 % (11.0-16.0); SCAN SMEAR FLAG 1; White Blood Count 3.6 X10*3/uL (4.8-10.8)
[2023-10-03 18:21] LABS: Alanine Aminotransferase 10 U/L (0-40); Albumin Level 4.1 g/dL (3.5-5.0); Alkaline Phosphatase 57 U/L (39-117); Anion Gap 11 (12-20); Aspartate Amino Transferase 15 U/L (5-37); Bilirubin Direct 0.3 mg/dL (0.0-0.5); Bilirubin Total 0.7 mg/dL (0.0-1.0); Blood Urea Nitrogen 7 mg/dL (9-16); Calcium 9.2 mg/dL (8.4-10.2); Carbon Dioxide 29 mmol/L (22-29); Chloride 107 mmol/L (96-108); Estimated Glomerular Filt Rate > 60; Glucose Random 89 mg/dL (60-115); Potassium 4.4 mmol/L (3.3-5.1); Sodium 143 mmol/L (135-145); Total Protein 6.9 g/dL (6.5-8.0)
[2023-10-03 18:31] LABS: SLIDE REVIEW VERIFIED
== END 2023-10-03 16:15 | disposition home or self-care (01) ==
LOC: HO.HHCL 16:14
PROVIDERS: Visit Provider Internal Medicine Geriatric Medicine
DX: R10.9 Unspecified abdominal pain (principal); R82.2 Biliuria
CPT/HCPCS: 36415; 80048; 80076; 85025

== ENCOUNTER 2023-11-01 08:53 | Outpatient (REF) | payer OTHER, SELFPAY ==
--- NOTE | ~2023-11-01 | US_ITS ---
EXAMINATION: US ABDOMEN COMPLETE CLINICAL INFORMATION: Upper abdominal pain after meals on and off for a year. COMPARISON: Ultrasound abdomen complete 08/09/2022. TECHNIQUE: Real-time imaging of the abdominal viscera. Technically difficult study secondary to bowel gas. FINDINGS: PANCREAS: Not well visualized due to bowel gas ABDOMINAL AORTA: The proximal, mid, and distal segments are normal in caliber. INFERIOR VENA CAVA: Visualized portions are normal. LIVER: Normal. The liver is normal in size. The liver contour is normal. Parenchymal echogenicity is normal. No focal hepatic lesion. There is no intrahepatic biliary duct dilatation seen. GALLBLADDER: Normal. The gallbladder is physiologically distended without evidence of stones, sludge, polyps, wall thickening or pericholecystic fluid. COMMON BILE DUCT: Normal in caliber measuring 0.3 cm in diameter. RIGHT KIDNEY: Normal. No hydronephrosis. No renal calculi or focal parenchymal lesions. The kidney measures 10.6 cm in maximum dimension. LEFT KIDNEY: No hydronephrosis or focal parenchymal lesions. The kidney measures 11.0 cm in maximum dimension. 2 mm echogenic density with twinkle artifact questionable for stone in the midpole. SPLEEN: Normal. The spleen measures 11.5 cm in maximum dimension. FREE FLUID: None. US/US abdomen complete IMPRESSION: Limited exam. Question small left renal stone. Limited visualization of the pancreas.
== END 2023-11-01 08:54 | disposition home or self-care (01) ==
LOC: HO.US 08:53
PROVIDERS: PCP Internal Medicine Geriatric Medicine; Visit Provider Internal Medicine Geriatric Medicine
DX: R10.9 Unspecified abdominal pain (principal)
CPT/HCPCS: 76700

== ENCOUNTER 2023-11-18 10:28 | Emergency (ER) | payer OTHER, SELFPAY ==
--- NOTE | ~2023-11-18 | XR_ITS ---
EXAMINATION: XR CERVICAL SPINE CLINICAL INFORMATION: Left side neck pain. COMPARISON: Cervical spine radiographs dated 07/05/2022. TECHNIQUE: 4 views of the cervical spine were obtained. FINDINGS: Cervical spinal alignment remains anatomic in the sagittal projection. The vertebral bodies demonstrate preserved stature. There is mild narrowing of the C3-C4, C4-C5, C5-C6, and C6-C7 intervertebral disc spaces. There are endplate sclerotic changes throughout these levels. There are anterior osteophytes throughout these levels. The posterior elements are anatomically aligned. There is no prevertebral soft tissue swelling. The C1-C2 relationship is intact. The dens is intact. Lung apices are clear. XR/XR cervical spine 2V IMPRESSION: Stable appearance of the cervical spine. No acute osseous abnormality.
--- NOTE | ~2023-11-18 | XR_ITS ---
EXAMINATION: XR SHOULDER, LEFT CLINICAL INFORMATION: Left shoulder pain. COMPARISON: None available. TECHNIQUE: 3 radiographs of the left shoulder. FINDINGS: There is no fracture or dislocation. There is significant narrowing of the left glenohumeral joint with associated subchondral sclerosis and marginal osteophytosis. The left acromioclavicular joint is maintained. The visualized left lung is clear. Regional soft tissue is unremarkable. XR/XR shoulder LT min 2V IMPRESSION: No fracture or dislocation. Significant degenerative disease of the left glenohumeral joint.
--- NOTE | ~2023-11-18 | XR_ITS ---
EXAMINATION: XR CHEST CLINICAL INFORMATION: Left-sided chest pain. COMPARISON: Chest radiograph dated 01/30/2022. TECHNIQUE: 2 views of the chest were obtained. FINDINGS: The trachea is in normal anatomic position. Heart size remains normal. There is no consolidation within either lung. No pneumothorax or pleural effusion. There are degenerative changes throughout the thoracic spine. There are bilateral glenohumeral joint degenerative changes. There is truncation of the lateral aspect of the right clavicle, unchanged from prior study. XR/XR chest 2V IMPRESSION: No acute cardiopulmonary disease.
[2023-11-18 10:32] VITALS: BP 163/86; PULSE 51; RESP 16; TEMP 36.6; O2SAT 99; BMI 28.1
--- NOTE | 2023-11-18 10:40 | ECG_ITS ---
Test Reason : cp Blood Pressure : / mmHG Vent. Rate : 048 BPM Atrial Rate : 048 BPM P-R Int : 154 ms QRS Dur : 092 ms QT Int : 446 ms P-R-T Axes : 042 -16 000 degrees QTc Int : 398 ms Sinus bradycardia Incomplete right bundle branch block Minimal voltage criteria for LVH, may be normal variant ( R in aVL ) Borderline ECG When compared with ECG of 02-OCT-2022 20:45, Vent. rate has decreased BY 24 BPM Inverted T waves have replaced nonspecific T wave abnormality in Inferior leads Nonspecific T wave abnormality no longer evident in Anterior leads Referred By: Generic ED Physician Electronically Signed By:ANNA LANGLEY
--- NOTE | 2023-11-18 10:51 | ED_ITS ---
HPI - Neck Pain/Injury General Chief Complaint: Neck Pain/Injury Stated Complaint: L neck pain rad to arm and back Time Seen by Provider: 11/18/23 10:50 Source: patient Mode of arrival: ambulatory Limitations: no limitations History of Present Illness HPI Narrative: 68 year old male with pmhx significant for osteoarthritis, glaucoma, asthma, GERD, gastritis, neprhlothiasis, urinary retention, prostate cancer presents to the ED today for evaluation of left sided chest pain x2 weeks. He admits pain radiates into left neck, left shoulder, and down the left ribs. Pain is worse with movement of the left arm. States the area is tender to touch and he admits makes this makes it difficulty for him to sleep at night. Denies trauma or injury to shoulder or neck. He reports seeing his PCP for this last week who advised him to take Tylenol which he has been taking without relief of pain. Denies fever, chills, dizziness, headache, vision changes, difficulty walking, chest pain, SOB, dyspnea, palpitations, back pain. Related Data Home Medications Medication Instructions Recorded Confirmed albuterol sulfate 90 mcg/actuation 0 mcg inhalation 01/03/23 aerosol inhaler amlodipine 10 mg tablet 10 mg PO DAILY 01/03/23 duloxetine 30 mg capsule,delayed 30 mg PO DAILY 01/03/23 release fluticasone propionate 50 1 spray intranasal DAILY 01/03/23 mcg/actuation nasal spray,suspension loratadine 10 mg tablet 10 mg PO QAM 01/03/23 omeprazole 40 mg capsule,delayed 40 mg PO BID 01/03/23 release tamsulosin 0.4 mg capsule 0.4 mg PO BEDTIME 01/03/23 trazodone 50 mg tablet 50 mg PO BEDTIME 01/03/23 Previous Rx's Medication Instructions Recorded lorazepam 0.5 mg tablet 0.5 mg PO BID PRN anxiety #8 tabs 08/17/21 acetic acid 2 % ear solution 5 drp otic (ears) Q6H #15 mL 12/03/21 levofloxacin 500 mg tablet 500 mg PO DAILY #7 tabs 12/03/21 cyclobenzaprine 10 mg tablet 10 mg PO Q8H #20 tabs 12/20/21 meclizine 25 mg tablet 25 mg PO BID PRN dizziness #8 tabs 03/13/22 azithromycin 250 mg tablet See Rx Instructions PO .COMPLEX #6 07/16/22 tabs prednisone 20 mg tablet 40 mg (2 x 20 mg) PO DAILY 5 days 07/16/22 #10 tabs lorazepam 1 mg tablet (Ativan) 1 mg PO BEDTIME PRN anxiety #14 10/02/22 tabs bacitracin 500 unit/gram topical 1 appl topical Q8H #14 grams 05/20/23 ointment (Bacitraycin Plus) oxycodone 5 mg capsule 5 mg PO Q8H PRN pain #12 caps 05/20/23 baclofen 5 mg tablet 5 mg PO BEDTIME PRN muscle spasm 11/18/23 #10 tabs lidocaine 5 % topical patch 1 patch topical DAILY #15 ea 11/18/23 (Lidoderm) Allergies Allergy/AdvReac Type Severity Reaction Status Date / Time diphenhydramine Allergy Unknown UNKNOWN Verified 11/18/23 10:32 [From BENADRYL] penicillin G [PENICILLIN G] Allergy Unknown HIVES Verified 11/18/23 10:32 Review of Systems 2 Review of Systems: Constitutional: No fever, chills, fatigue, night sweats, weight changes ENT/Mouth: No ear pain, hearing loss, nasal congestion, sinus pain, rhinorrhea, sore throat Eyes: No eye pain, swelling, redness, vision changes, discharge Cardio: No chest pain, palpitations, WILEY, orthopnea, peripheral edema Pulm: No SOB, cough, sputum, wheezing, dyspnea, hemoptysis GI: No nausea, vomiting, hematemesis, abdominal pain, diarrhea, constipation, hematochezia, melena : No irregular bleeding, dysuria, frequency, urgency, hesitancy, hematuria, flank pain, urinary flow changes, urinary incontinence or retention MSK: No back pain, joint pain, myalgias, +left neck/shoulder pain Skin: No lesions, rashes Neuro: No weakness, numbness, paresthesias, LOC, dizziness, headache Psych: No anxiety/panic, depression, SI/HI, AH/VH All other systems reviewed and are negative. [facility] Past Medical History Attestation statement: The following information was validated with the patient. Source: old records reviewed and nursing notes reviewed Medical History Nephrolithiasis Osteoarthritis Urinary retention Esophageal reflux Urinary hesitancy Bladder outlet obstruction Urinary frequency Nocturia Glaucoma Gastritis Prostate cancer Arthritis Asthma Surgical History History of hemorrhoidectomy (~04/02/13) History of total right hip replacement Social History Social History Alcohol intake: never Patient Tobacco Use Status: Never used Tobacco Advance Directives: No Advance Directives Information Provided: Yes Physical Exam 2 Vital Signs: Vital Signs: Last Vital Signs Temp 97.9 F 11/18/23 10:32 Pulse 50 11/18/23 15:01 Resp 16 11/18/23 15:01 BP 158/86 H 11/18/23 15:01 Pulse Ox 100 11/18/23 15:01 O2 Del Method Room Air 11/18/23 15:01 BMI result Body Mass Index 28.1 Patient hypertensive, vitals otherwise WNL. Const: General: cooperative, healthy appearing, comfortable and no acute distress Nutritional Appearance: average body habitus O rientation/consciousness: patient oriented x3 Limitations: no limitations HEENT: Head: Yes normal to inspection, Yes No palpable skull fracture present, Yes normocephalic and Yes atraumatic Eyes: General: appearance normal, both eyes and all related structures C onjunctivae: conjunctivae normal Sclerae: sclerae normal Pupils: Equal, round and reactive pupils present Neck: Other: + full ROM to C-spine. No palpable spin ous tenderness or step-off deformity. Neck: Yes normal visual inspection, Yes full ROM and Yes no lymphadenopathy Chest: Other: + reproducible tenderness over the anter ior and lateral left chest wall without palpable deformity. No crepitus. Chest palpation & inspection: normal inspection of the chest Resp: Effort & Inspection: normal respiratory effort and able to speak in complete sentences Auscultation: clear to auscultation bilaterally Cardio: Other: + 2+ radial pulses Jugular venous distension: no JVD Rate: regular rate Rhythm: regular rhythm GI: Inspection: Yes normal to inspection Palpation (GI): Soft to palpation and nontender Back/Spine/Pelvis: Other: No midline spinous tenderness or step off deformity. No paraspinal muscle tenderness. Skin: General skin exam: no rashes or lesions noted Neuro: General: patient oriented x3 and gait normal Cranial nerves: Yes Equal, round and reactive pupils present Extrem: Other: + left shoulder joint without edema/ ove rlying skin changes. ttp. limited ROM with abduction of left shoulder secondary to pain. General: Yes normal to inspection, Yes capillary refill normal and Yes normal exam except as noted Course Course Course Narrative: 1349-- CBC without leukocytosis or anemia. H&H stable. Chemistry without acute electrolyte abnormality requiring intervention. Initial troponin undetectable. 1445-- delta troponin flat. On x-ray of left shoulder there is significant degenerative disease within the left glenohumeral joint consistent with osteoarthritis. No obvious fracture or dislocation. Chest x-ray does not demonstrate any consolidation or infiltrate to suggest pneumonia. Normal cardiac silhouette. X-ray of C-spine does not demonstrate fracture or subluxation. > discussed all work up results with patient. he currently follows with orthopedic doctor for corticosteroid injections. he receives these in his left shoulder q3 months. He last saw his ortho doctor a few months ago. advised him to follow up with ortho doctor. will send flexeril and lidocaine patches to pharmacy for suspected anterior chest wall muscle strain. Patient has remained stable throughout ED visit today. Discussed worrisome signs and symptoms and when to return to the ED. All questions answered at this time. Patient is agreeable with disposition and stable for discharge. Medications Administered Discontinued Medications Generic Name Dose Route Start Last Admin Trade Name Joseq PRN Reason Stop Dose Admin Ketorolac Tromethamine 30 mg 11/18/23 11:04 11/18/23 11:20 Ketorolac Tromethamine 30 Mg/Ml Vial IM 11/18/23 11:05 30 mg ONCE ONE Administration Lidocaine 1 patch 11/18/23 11:04 11/18/23 11:20 Lidocaine 4 % Patch Adh..Patch TRANSDERMA 11/18/23 11:05 1 patch ONCE ONE Administration Protocol Medical Decision Making Medical Decision Making MDM Narrative: 68 year old male with pmhx significant for osteoarthritis, glaucoma, asthma, GERD, gastritis, neprhlothiasis, urinary retention, prostate cancer presents to the ED today for evaluation of left neck pain x2 weeks. Patient hypertensive, vitals otherwise wnl. Please refer to physical exam section for findings. Differential diagnosis includes MSK sprain/strain, arthritis, ACS, arrhythmia, pleuritis, costochondritis, rib fracture, torticollis, cervical fracture, ligament/tendon injury. Differential Diagnosis Differential Diagnoses: The differential diagnosis associated with the presentation includes as above. Admission/Observation Not indicated. Lab Data MDM Lab Attestation statement: I reviewed the patient's lab results. as above. 11/18/23 11:26 11/18/23 11:26 Labs: Lab Results 11/18/23 11/18/23 Range/Units 11:26 13:56 WBC 3.3 L (4.8-10.8) X10*3/uL RBC 5.40 (4.60-5.80) X10*6/uL Hgb 16.1 (14.0-18.0) g/dl Hct 46.0 (42.0-52.0) % MCV 85.2 (80.0-98.0) fL MCH 29.8 (27.0-33.0) pg MCHC 35.0 (31.0-36.0) g/dl RDW 12.6 (11.0-16.0) % Plt Count 176 (160-400) X10*3/uL MPV 9.6 (9.4-12.4) fL Immature Gran % (Auto) 0.0 (0.0-0.4) % Neut % (Auto) 21.3 L (45-73) % Lymph % (Auto) 54.9 H (20-40) % Trigg % (Auto) 9.8 (2-11) % Eos % (Auto) 12.2 H (0-4) % Baso % (Auto) 1.8 (0-2) % Lymph # (Auto) 1.8 (1.2-4.9) X10*3/uL Trigg # (Auto) 0.3 (0.1-1.2) X10*3/uL Eos # (Auto) 0.4 (0.0-0.4) X10*3/uL Baso # (Auto) 0.1 (0.0-0.2) X10*3/uL Abs Immat Gran (auto) 0.00 (0.00-0.03) X10*3/uL Absolute Neuts (auto) 0.7 L (2.0-8.3) x10*3/uL Absolute Nucleated RBC 0.000 (0.0-0.012) X10*3/uL Nucleated RBC % (auto) 0.0 (0.0-0.2) /100WBC Sodium 141 (135-145) mmol/L Potassium 4.4 (3.3-5.1) mmol/L Chloride 108 (96-108) mmol/L Carbon Dioxide 28 (22-29) mmol/L Anion Gap 9 L (12-20) BUN 12 (9-16) mg/dL Creatinine 0.82 (0.5-1.4) mg/dL Estim Creat Clear Calc 81.2 Estimated GFR > 60 Random Glucose 106 (60-115) mg/dL Calcium 9.1 (8.4-10.2) mg/dL Magnesium 1.9 (1.6-2.6) mg/dL Total Bilirubin 0.9 (0.0-1.0) mg/dL AST 15 (5-37) U/L ALT 10 (0-40) U/L Alkaline Phosphatase 62 (39-117) U/L Troponin I High Sens < 2.7 < 2.7 (<3.5-35.0) ng/L Total Protein 6.6 (6.5-8.0) g/dL Albumin 3.8 (3.5-5.0) g/dL Lipase 72 (8-78) U/L Independent Interpretation I performed an independent interpretation of an: Plain X-Ray Interpretation: I have reviewed xr cervical spine, left shoulder, and chest and agree with radiologist's interpretation. Radiology Impression Discussion of test interpretation with radiology: I have reviewed the radiologist's reading. Radiologist Impression: XR shoulder LT min 2V IMPRESSION: No fracture or dislocation. Significant degenerative disease of the left glenohumeral joint. XR chest 2V IMPRESSION: No acute cardiopulmonary disease. XR cervical spine 2V IMPRESSION: Stable appearance of the cervical spine. No acute osseous abnormality. Independent Historian Clinical information obtained from an independent historian. History obtained from or confirmed by: Spouse () External Record Review External record reviewed: Inpatient record, Office record, Outpatient record, Prior outpatient labs, Prior outpatient radiology, Primary care record and Outside ED record Prescription Management I considered prescription management with: Pain Medication and Other (Flexeril) Chronic Conditions Patient?s care impacted by: Other (osteoarthritis) Social Determinants Patient?s care significantly limited by Social Determinants of Health including: Other Social Determinant of Health Procedures Orthopedic Splinting/Casting Injury #1: Side: left Upper Extremity Injury Location: shoulder Upper Extremity Immobilizer: sling/shoulder immobilizer Discharge Plan Discharge Clinical Impression: Neck pain, Muscle strain of anterior chest wall, Arthritis Patient Disposition: Home, Self-Care Instructions: Muscle Strain (ED), Osteoarthritis (ED), Chest Wall Pain (ED) Additional Instructions: Your labs are reassuring. Your cardiac enzyme was normal. Your imaging studies today did not show acute fracture. Your chest xray is normal. Your shoulder xray does show significant degenerative changes within your left shoulder joint. You need to follow up with your orthopedic doctor regarding these findings. Your chest pain may be due to muscle strain. Use ice several times per day for 20 minutes at a time for the next 48 hours and then change to heat. Baclofen is a muscle relaxer. Take this at night as it makes you drowsy. Do not drive, drink alcohol, or operate machinery while taking it. Lidoderm patches are numbing patches. Apply to painful areas. In addition you may take Tylenol/ ibuprofen at home. Follow up with your primary care provider as needed If your pain worsens, if you develop new numbness, tingling, weakness, loss of bowel or bladder function call 911 or return to the ER immediately for evaluation. Prescriptions: New baclofen 5 mg tablet 5 mg PO BEDTIME PRN (Reason: muscle spasm) Qty: 10 0RF lidocaine [Lidoderm] 5 % adhesive patch,medicated 1 patch topical DAILY Qty: 15 0RF Rx Instructions: leave on most painful area for up to 12 hrs No Action albuterol sulfate 90 mcg/actuation HFA aerosol inhaler 0 mcg inhalation loratadine 10 mg tablet 10 mg PO QAM trazodone 50 mg tablet 50 mg PO BEDTIME tamsulosin 0.4 mg capsule 0.4 mg PO BEDTIME omeprazole 40 mg capsule,delayed release(DR/EC) 40 mg PO BID amlodipine 10 mg tablet 10 mg PO DAILY fluticasone propionate 50 mcg/actuation spray,suspension 1 spray intranasal DAILY duloxetine 30 mg capsule,delayed release(DR/EC) 30 mg PO DAILY cyclobenzaprine 10 mg tablet 10 mg PO Q8H Qty: 20 0RF lorazepam [Ativan] 1 mg tablet 1 mg PO BEDTIME PRN (Reason: anxiety) Qty: 14 0RF lorazepam 0.5 mg tablet 0.5 mg PO BID PRN (Reason: anxiety) Qty: 8 0RF acetic acid 2 % solution 5 drp otic (ears) Q6H Qty: 15 0RF Rx Instructions: apply to (cotton) wick; replace wick every 24 hours levofloxacin 500 mg tablet 500 mg PO DAILY Qty: 7 0RF meclizine 25 mg tablet 25 mg PO BID PRN (Reason: dizziness) Qty: 8 0RF azithromycin 250 mg tablet See Rx Instructions .ROUTE .COMPLEX Qty: 6 0RF Rx Instructions: For 250 mg dose pack: take 500 mg today (day 1), then 250 mg for 4 days (days 2-5) prednisone 20 mg tablet 40 mg PO DAILY 5 Days Qty: 10 0RF oxycodone 5 mg capsule 5 mg PO Q8H PRN (Reason: pain) Qty: 12 0RF Rx Instructions: Partial Fill upon patient request. bacitracin [Bacitraycin Plus] 500 unit/gram ointment 1 appl topical Q8H Qty: 14 0RF Interventions: ED Discharge Assessment Last Done: 11/18/23 15:10 Discharge Date/Time: 11/18/23 15:11
[2023-11-18] MEDS: Lidocaine 4 % Patch ADH..PATCH 1 PATCH TRANSDERMA (11:20)
[2023-11-18] MEDS: Ketorolac Tromethamine 30 MG/ML VIAL IM (11:20)
[2023-11-18 11:38] LABS: Basophils Absolute Auto 0.1 X10*3/uL (0.0-0.2); Basophils Percent Auto 1.8 % (0-2); Eosinophils Absolute Auto 0.4 X10*3/uL (0.0-0.4); Eosinophils Percent Auto 12.2 % (0-4); Hemoglobin 16.1 g/dl (14.0-18.0); Lymphocytes Absolute Auto 1.8 X10*3/uL (1.2-4.9); Lymphocytes Percent Auto 54.9 % (20-40); Mean Corpuscular Hemoglobin 29.8 pg (27.0-33.0); Mean Corpuscular Volume 85.2 fL (80.0-98.0); Mean Platelet Volume 9.6 fL (9.4-12.4); Monocytes Absolute Auto 0.3 X10*3/uL (0.1-1.2); Monocytes Percent Auto 9.8 % (2-11); Neutrophils Absolute Auto 0.7 x10*3/uL (2.0-8.3); Neutrophils Percent Auto 21.3 % (45-73); Platelet Count 176 X10*3/uL (160-400); Red Cell Distribution Width 12.6 % (11.0-16.0); SCAN SMEAR FLAG 1; White Blood Count 3.3 X10*3/uL (4.8-10.8)
[2023-11-18 11:46] LABS: MANUAL DIFF FLAG NO
[2023-11-18 11:52] LABS: Alanine Aminotransferase 10 U/L (0-40); Albumin Level 3.8 g/dL (3.5-5.0); Alkaline Phosphatase 62 U/L (39-117); Anion Gap 9 (12-20); Aspartate Amino Transferase 15 U/L (5-37); Bilirubin Total 0.9 mg/dL (0.0-1.0); Blood Urea Nitrogen 12 mg/dL (9-16); Calcium 9.1 mg/dL (8.4-10.2); Carbon Dioxide 28 mmol/L (22-29); Chloride 108 mmol/L (96-108); Creatinine Clr Calc Pharmacy 81.2; Estimated Glomerular Filt Rate > 60; Glucose Random 106 mg/dL (60-115); Lipase 72 U/L (8-78); Magnesium 1.9 mg/dL (1.6-2.6); Potassium 4.4 mmol/L (3.3-5.1); Sodium 141 mmol/L (135-145); Total Protein 6.6 g/dL (6.5-8.0)
[2023-11-18 12:03] LABS: Troponin-I High Sensitivity < 2.7 ng/L (<3.5-35.0)
[2023-11-18 14:28] LABS: Troponin-I High Sensitivity < 2.7 ng/L (<3.5-35.0)
[2023-11-18 15:01] VITALS: BP 158/86; PULSE 50; RESP 16; O2SAT 100
== END 2023-11-18 15:11 | disposition home or self-care (01) ==
PROVIDERS: Physician Assistant Medical; Emergency Provider Emergency Medicine; PCP Internal Medicine Geriatric Medicine
DX: S29.011A Strain of muscle and tendon of front wall of thorax, initial encounter (principal); M54.2 Cervicalgia; R07.89 Other chest pain; M25.512 Pain in left shoulder; R00.1 Bradycardia, unspecified; X58.XXXA Exposure to other specified factors, initial encounter; Y93.9 Activity, unspecified; Y92.9 Unspecified place or not applicable; Y99.8 Other external cause status; Z79.899 Other long term (current) drug therapy
CPT/HCPCS: 36415; 71046; 72040; 73030; 80053; 83690; 83735; 84484; 85025; 93005; 96372; 99284; J1885

== ENCOUNTER → 2023-11-18 10:40 | Outpatient (BNV) | payer OTHER, SELFPAY | PROVIDERS: Emergency Provider Emergency Medicine; PCP Internal Medicine Geriatric Medicine; Visit Provider Internal Medicine | DX: R00.1 Bradycardia, unspecified (principal) | CPT/HCPCS: 93010 ==

== ENCOUNTER 2024-01-28 07:38 | Day surgery (SDC) | payer OTHER, SELFPAY ==
[2024-01-24 07:44] VITALS: BMI 25.8
--- NOTE | 2024-01-24 14:41 | P.CONAN_ITS ---
Documented by User: Mikaela Doshi NP 01/25/24 09:06 HPI - Anesthesia Eval Consult details Narrative: 68yo M for Right Cataract Extraction IOL Insertion No previous cataract on record [facility] Past Medical History Medical History (Updated 01/28/24 @ 08:01 by Leeanne Shook RN) Lung collapse Nephrolithiasis Osteoarthritis Urinary retention Esophageal reflux Urinary hesitancy Bladder outlet obstruction Urinary frequency Nocturia Glaucoma Gastritis Prostate cancer Arthritis Asthma Surgical History Surgical History History of hemorrhoidectomy (~04/02/13) History of total right hip replacement Social History Social History Alcohol intake: never Patient Tobacco Use Status: Never used Tobacco Are you DNR?: No Advance Directives: No Advance Directives Information Provided: Yes Advance Directives on File: No Meds Allergies Allergy/AdvReac Type Severity Reaction Status Date / Time penicillin G [PENICILLIN G] Allergy Unknown HIVES Verified 11/18/23 10:32 diphenhydramine AdvReac Unknown Palpitation Verified 01/28/24 07:58 [From BENADRYL] s Home Medications ?Medication ?Instructions ?Recorded ?Confirmed ?Last Taken ?Type albuterol sulfate 90 mcg/actuation 2 puff inhalation Q4-6H PRN 01/03/23 01/24/24 Unknown History aerosol inhaler Shortness Of Breath Or Wheezing duloxetine 30 mg capsule,delayed 30 mg PO DAILY 01/03/23 01/24/24 Unknown History release loratadine 10 mg tablet 10 mg PO QAM 01/03/23 01/24/24 Unknown History omeprazole 40 mg capsule,delayed 40 mg PO BID 01/03/23 01/24/24 Unknown History release tamsulosin 0.4 mg capsule 0.4 mg PO QPM 01/03/23 01/24/24 Unknown History trazodone 50 mg tablet 25 mg PO BEDTIME 01/03/23 01/24/24 Unknown History Lactobacillus acidophilus 10 mg PO DAILY 01/24/24 01/24/24 Unknown History acetaminophen 650 mg 650 mg PO Q6H PRN fever 01/24/24 01/24/24 Unknown History tablet,extended release albuterol sulfate 2.5 mg/3 mL 2.5 mg inhalation Q4-6H PRN 01/24/24 01/24/24 Unknown History (0.083 %) solution for nebulization Shortness Of Breath Or Wheezing amlodipine 5 mg tablet 5 mg PO QAM 01/24/24 01/24/24 01/28/24 History aspirin 162.5 mg capsule,extended 162.5 mg PO DAILY 01/24/24 01/24/24 Unknown History release 24 hr (Durlaza) azelastine 137 mcg (0.1 %) nasal 1 spray intranasal BID 01/24/24 01/24/24 Unknown History spray aerosol baclofen 10 mg tablet 10 mg PO BID PRN muscle spasm 01/24/24 01/24/24 Unknown History brimonidine 0.2 %-timolol 0.5 % 1 drp ophthalmic (eye) BID 01/24/24 01/24/24 Unknown History eye drops (Combigan) celecoxib 200 mg capsule 200 mg PO BID 01/24/24 01/24/24 Unknown History diclofenac sodium 1 % topical gel 2 g topical BID PRN Pain 01/24/24 01/24/24 Unknown History docusate sodium 100 mg capsule 100 mg PO BID 01/24/24 01/24/24 Unknown History famotidine 20 mg tablet 20 mg PO BEDTIME 01/24/24 01/24/24 Unknown History fluticasone propionate 50 1 spray intranasal DAILY 01/24/24 01/24/24 Unknown History mcg/actuation nasal spray,suspension latanoprost 0.005 % eye drops 1 drp ophthalmic (eye) QPM 01/24/24 01/24/24 Unknown History clonazepam 0.5 mg tablet 0.5 mg PO BID 01/28/24 01/28/24 01/28/24 History Exam Height,Weight and Vital Signs: Height 5 ft 5 in Weight 70.307 kg Assessment and Plan Assessment Anesthesia Assessment: Chart Reviewed Documented by User: Jose Titus MD 01/28/24 08:50 [facility] Past Medical History Medical History (Updated 01/28/24 @ 08:01 by Leeanne Shook RN) Lung collapse Nephrolithiasis Osteoarthritis Urinary retention Esophageal reflux Urinary hesitancy Bladder outlet obstruction Urinary frequency Nocturia Glaucoma Gastritis Prostate cancer Arthritis Asthma Family History Family history of problems with anesthesia: No Surgical History Surgical History History of hemorrhoidectomy (~04/02/13) History of total right hip replacement History of Problems with Anesthesia: No Social History Social History Alcohol intake: never Patient Tobacco Use Status: Never used Tobacco Are you DNR?: No Advance Directives: No Advance Directives Information Provided: Yes Advance Directives on File: No Meds Allergies Allergy/AdvReac Type Severity Reaction Status Date / Time penicillin G [PENICILLIN G] Allergy Unknown HIVES Verified 11/18/23 10:32 diphenhydramine AdvReac Unknown Palpitation Verified 01/28/24 07:58 [From [facility]] s Home Medications ?Medication ?Instructions ?Recorded ?Confirmed ?Last Taken ?Type albuterol sulfate 90 mcg/actuation 2 puff inhalation Q4-6H PRN 01/03/23 01/24/24 Unknown History aerosol inhaler Shortness Of Breath Or Wheezing duloxetine 30 mg capsule,delayed 30 mg PO DAILY 01/03/23 01/24/24 Unknown History release loratadine 10 mg tablet 10 mg PO QAM 01/03/23 01/24/24 Unknown History omeprazole 40 mg capsule,delayed 40 mg PO BID 01/03/23 01/24/24 Unknown History release tamsulosin 0.4 mg capsule 0.4 mg PO QPM 01/03/23 01/24/24 Unknown History trazodone 50 mg tablet 25 mg PO BEDTIME 01/03/23 01/24/24 Unknown History Lactobacillus acidophilus 10 mg PO DAILY 01/24/24 01/24/24 Unknown History acetaminophen 650 mg 650 mg PO Q6H PRN fever 01/24/24 01/24/24 Unknown History tablet,extended release albuterol sulfate 2.5 mg/3 mL 2.5 mg inhalation Q4-6H PRN 01/24/24 01/24/24 Unknown History (0.083 %) solution for nebulization Shortness Of Breath Or Wheezing amlodipine 5 mg tablet 5 mg PO QAM 01/24/24 01/24/24 01/28/24 History aspirin 162.5 mg capsule,extended 162.5 mg PO DAILY 01/24/24 01/24/24 Unknown History release 24 hr (Durlaza) azelastine 137 mcg (0.1 %) nasal 1 spray intranasal BID 01/24/24 01/24/24 Unknown History spray aerosol baclofen 10 mg tablet 10 mg PO BID PRN muscle spasm 01/24/24 01/24/24 Unknown History brimonidine 0.2 %-timolol 0.5 % 1 drp ophthalmic (eye) BID 01/24/24 01/24/24 Unknown History eye drops (Combigan) celecoxib 200 mg capsule 200 mg PO BID 01/24/24 01/24/24 Unknown History diclofenac sodium 1 % topical gel 2 g topical BID PRN Pain 01/24/24 01/24/24 Unknown History docusate sodium 100 mg capsule 100 mg PO BID 01/24/24 01/24/24 Unknown History famotidine 20 mg tablet 20 mg PO BEDTIME 01/24/24 01/24/24 Unknown History fluticasone propionate 50 1 spray intranasal DAILY 01/24/24 01/24/24 Unknown History mcg/actuation nasal spray,suspension latanoprost 0.005 % eye drops 1 drp ophthalmic (eye) QPM 01/24/24 01/24/24 Unknown History clonazepam 0.5 mg tablet 0.5 mg PO BID 01/28/24 01/28/24 01/28/24 History Exam Airway Mallampati Class: II TM Dist: >3cm Neck ROM: Full Loose/Missing/Broken Teeth: No Heart: rrr Lungs: cts Assessment and Plan Final Anesthetic Review Family History of Problems with Anesthesia: No History of Problems with Anesthesia: No NPO: Yes ASA Class: II Final Preanesthetic Review: No Changes in Pt Med Stat, Meds/Allgs Chart Reviewed, Consent Obtained/Reviewed and Anes Risks/Benef Reviewed Patient Risk: Low Procedure Risk: Low Anesthetic Plan Anesthetic Plan: MAC: Disposition: Standard PACU
[2024-01-28 08:20] VITALS: BP 142/89; PULSE 64; RESP 16; TEMP 36.9; O2SAT 98
[2024-01-28] MEDS: Lactated Ringers 500 ML 50 ML IV (08:32)
[2024-01-28] MEDS: Tetracaine HCl/PF 0.5% Oph Sol 4 ML DROPS 1 DROP EYE-RIGHT (08:33)
[2024-01-28] MEDS: Tropicamide 1 % Ophth Sol 3 ML BTL 1 DROP EYE-RIGHT ×3 (08:34→08:41)
[2024-01-28] MEDS: Cyclopentolate 1 % Ophth Sol 2 ML DRPBTL 1 DROP EYE-RIGHT ×3 (08:34→08:41)
[2024-01-28] MEDS: Ketorolac Tromethamine 0.5% Op 10 ML DROPS 1 DROP EYE-RIGHT ×3 (08:35→08:42)
[2024-01-28] MEDS: Phenylephrine HCL 2.5% Oph SoL 2 ML BOTTLE 1 DROP EYE-RIGHT ×3 (08:36→08:42)
--- NOTE | 2024-01-28 09:25 | P.PCNO_ITS ---
Ophthalmology Procedure Procedure Date of Service: 01/28/24 Ophthalmology Viscoelastic: Healon Duet Dual Pack Pro Ophthalmology Lenses: IOL Acrysof MP - MA60AC (22) Procedure Notes: PREOPERATIVE DIAGNOSIS: Decreased visual acuity right eye secondary to cataract POSTOPERATIVE DIAGNOSIS: Same PROCEDURE: Right cataract extraction with intraocular lens insertion SURGEON: Devon Rowell M.D. ANESTHESIA: Topical/MAC ESTIMATED BLOOD LOSS: None COMPLICATIONS: None After obtaining informed consent, the patient was brought to the operating room suite and placed in the supine position. After adequate sedation per anesthesia, topical drops of Tetracaine were given to the right eye. The eye was then prepped and draped in the usual sterile fashion. The operating room microscope was then positioned over the operative eye and a lid speculum placed. A paracentesis was created. Viscoelastic was then instilled into the anterior chamber. A three plane incision was then created temporally, utilizing a 2.85 mm keratome. Capsulotomy forceps were then utilized to create a circular tear capsulotomy. Hydrodissection and hydrodelineation were carried out until adequate mobilization of the nucleus occurred. Phacoemulsification was then utilized to remove the dense central nucl eus followed by removal of the cortical material utilizing the automated aspiration irrigation unit. Viscoelastic was instilled into the posterior capsular bag followed by placement of a posterior chamber intraocular lens without difficulty. The residual Viscoelastic was then removed utilizing the automated IA machine. The wound was checked and found to be watertight. The patient tolerated the procedure well and the lid speculum was removed. Intracameral injection of Vigamox 0.1 mL followed by a subtenon injection of Kenalog-40 0.2 mL were administered. The patient will be seen in the a.m.
--- NOTE | 2024-01-28 09:25 | MHC.SHP ---
Pre-Procedural Eval Section A - 24 Hr Update-Section A only Date of Service: 01/28/24 The patient is an INPATIENT: No Changes since office visit: No Cold of Flu in the past 2 weeks, No New Medical Problems, No Changes in Medication and No Patient answered all questions The patient has been examined within 24 hours of the surgical procedure. The History & Physical has been completed within 30 days and I have reviewed it.: Yes Section B - Complete if H&P > 30 days Chief Complaint: Age-related nuclear cataract, right eye Allergies: Allergies Allergy/AdvReac Type Severity Reaction Status Date / Time penicillin G [PENICILLIN G] Allergy Unknown HIVES Verified 11/18/23 10:32 diphenhydramine AdvReac Unknown Palpitation Verified 01/28/24 07:58 [From [facility]] s Plan Diagnosis/Plan: Unchanged I have reviewed the history and physical and performed a pertinent physical examination on my patient. No changes have occurred unless specified. Time Spent With Patient Time: Total time managing care of this patient today ____ minutes.
[2024-01-28 09:54] VITALS: BP 99/57; PULSE 52; RESP 12; TEMP 36.8; O2SAT 99
[2024-01-28 10:12] VITALS: BP 121/78; PULSE 60; RESP 14; TEMP 36.8; O2SAT 96
== END 2024-01-28 10:37 | disposition home or self-care (01) ==
PROVIDERS: PCP Internal Medicine Geriatric Medicine; Visit Provider Ophthalmology
PROC: (CPT 66985; principal; 2024-01-28 08:50)
DX: H25.11 Age-related nuclear cataract, right eye (principal); H52.4 Presbyopia; H40.1113 Primary open-angle glaucoma, right eye, severe stage; H40.052 Ocular hypertension, left eye; H18.413 Arcus senilis, bilateral; H11.153 Pinguecula, bilateral; I10 Essential (primary) hypertension; J45.909 Unspecified asthma, uncomplicated; E78.00 Pure hypercholesterolemia, unspecified; M79.7 Fibromyalgia; M06.9 Rheumatoid arthritis, unspecified; Z79.82 Long term (current) use of aspirin; Z79.899 Other long term (current) drug therapy; Z88.0 Allergy status to penicillin; Z88.8 Allergy status to other drugs, medicaments and biological substances
CPT/HCPCS: 66984; J2250; J3010; J3301; V2630

== ENCOUNTER 2024-02-02 23:47 | Emergency (ER) | payer OTHER, SELFPAY ==
[2024-02-02 23:53] VITALS: BP 137/84; PULSE 71; RESP 16; TEMP 36; O2SAT 98; BMI 26.1
--- NOTE | 2024-02-03 | ECG_ITS ---
Test Reason : DIZZINESS Blood Pressure : / mmHG Vent. Rate : 071 BPM Atrial Rate : 071 BPM P-R Int : 136 ms QRS Dur : 088 ms QT Int : 394 ms P-R-T Axes : 040 -18 013 degrees QTc Int : 428 ms Normal sinus rhythm Normal ECG When compared with ECG of 18-NOV-2023 10:44, Vent. rate has increased BY 23 BPM Referred By: Generic ED Physician Electronically Signed By:Gautam Dalal
[2024-02-03 00:19] LABS: Hematocrit 45.3 % (42.0-52.0); Hemoglobin 16.4 g/dl (14.0-18.0); Mean Corpuscular HGB Conc 36.2 g/dl (31.0-36.0); Mean Corpuscular Hemoglobin 31.1 pg (27.0-33.0); Mean Corpuscular Volume 85.8 fL (80.0-98.0); Mean Platelet Volume 9.3 fL (9.4-12.4); Platelet Count 177 X10*3/uL (160-400); Red Blood Count 5.28 X10*6/uL (4.60-5.80); Red Cell Distribution Width 13.1 % (11.0-16.0); White Blood Count 4.1 X10*3/uL (4.8-10.8)
[2024-02-03 00:21] LABS: Appearance Urine Clear; Color Urine Yellow; Glucose Urine UA Negative (Negative); Leukocyte Esterase Urine Negative (Negative); Nitrite Urine Negative (Negative); Urine Blood Negative (Negative); Urine Ketones Trace mg/dL (Negative); Urine Protein Negative (Neg-Trace)
[2024-02-03 00:35] LABS: Alanine Aminotransferase 22 U/L (0-40); Albumin Level 4.2 g/dL (3.5-5.0); Alkaline Phosphatase 64 U/L (39-117); Anion Gap 13 (12-20); Aspartate Amino Transferase 18 U/L (5-37); Bilirubin Total 1.2 mg/dL (0.0-1.0); Blood Urea Nitrogen 16 mg/dL (9-16); Calcium 9.4 mg/dL (8.4-10.2); Carbon Dioxide 28 mmol/L (22-29); Chloride 102 mmol/L (96-108); Creatinine Clr Calc Pharmacy 76.7; Estimated Glomerular Filt Rate > 60; Glucose Random 139 mg/dL (60-115); Sodium 139 mmol/L (135-145); Total Protein 7.3 g/dL (6.5-8.0)
--- NOTE | 2024-02-03 01:24 | ED.GENADULT ---
HPI - General Adult General Chief complaint: General Medical Stated complaint: high blood pressure Time Seen by Provider: 02/03/24 01:23 Source: patient Mode of arrival: ambulatory Limitations: no limitations History of Present Illness HPI narrative: Patient with history of hypertension take amlodipine 5 mg daily also has increased stress anxiety noticed blood pressure prior to arrival was 147/95 feels anxious with poor sleep increased stress at home no chest pain no shortness a breath Related Data Home Medications ?Medication ?Instructions ?Recorded ?Confirmed albuterol sulfate 90 mcg/actuation 2 puff inhalation Q4-6H PRN 01/03/23 01/24/24 aerosol inhaler Shortness Of Breath Or Wheezing duloxetine 30 mg capsule,delayed 30 mg PO DAILY 01/03/23 01/24/24 release loratadine 10 mg tablet 10 mg PO QAM 01/03/23 01/24/24 omeprazole 40 mg capsule,delayed 40 mg PO BID 01/03/23 01/24/24 release tamsulosin 0.4 mg capsule 0.4 mg PO QPM 01/03/23 01/24/24 trazodone 50 mg tablet 25 mg PO BEDTIME 01/03/23 01/24/24 Lactobacillus acidophilus 10 mg PO DAILY 01/24/24 01/24/24 acetaminophen 650 mg 650 mg PO Q6H PRN fever 01/24/24 01/24/24 tablet,extended release albuterol sulfate 2.5 mg/3 mL 2.5 mg inhalation Q4-6H PRN 01/24/24 01/24/24 (0.083 %) solution for nebulization Shortness Of Breath Or Wheezing amlodipine 5 mg tablet 5 mg PO QAM 01/24/24 01/24/24 aspirin 162.5 mg capsule,extended 162.5 mg PO DAILY 01/24/24 01/24/24 release 24 hr (Durlaza) azelastine 137 mcg (0.1 %) nasal 1 spray intranasal BID 01/24/24 01/24/24 spray aerosol baclofen 10 mg tablet 10 mg PO BID PRN muscle spasm 01/24/24 01/24/24 brimonidine 0.2 %-timolol 0.5 % 1 drp ophthalmic (eye) BID 01/24/24 01/24/24 eye drops (Combigan) celecoxib 200 mg capsule 200 mg PO BID 01/24/24 01/24/24 diclofenac sodium 1 % topical gel 2 g topical BID PRN Pain 01/24/24 01/24/24 docusate sodium 100 mg capsule 100 mg PO BID 01/24/24 01/24/24 famotidine 20 mg tablet 20 mg PO BEDTIME 01/24/24 01/24/24 fluticasone propionate 50 1 spray intranasal DAILY 01/24/24 01/24/24 mcg/actuation nasal spray,suspension latanoprost 0.005 % eye drops 1 drp ophthalmic (eye) QPM 01/24/24 01/24/24 clonazepam 0.5 mg tablet 0.5 mg PO BID 01/28/24 01/28/24 Previous Rx's ?Medication ?Instructions ?Recorded lorazepam 0.5 mg tablet (Ativan) 0.5 mg PO BEDTIME PRN 02/03/24 Anxiety/sleep #10 tabs Allergies Allergy/AdvReac Type Severity Reaction Status Date / Time penicillin G [PENICILLIN G] Allergy Unknown HIVES Verified 02/02/24 23:58 diphenhydramine AdvReac Unknown Palpitation Verified 02/02/24 23:58 [From [facility]] s Review of Systems Review of Systems: Yes all other systems are reviewed and are negative [facility] Past Medical History Medical History Lung collapse Nephrolithiasis Osteoarthritis Urinary retention Esophageal reflux Urinary hesitancy Bladder outlet obstruction Urinary frequency Nocturia Glaucoma Gastritis Prostate cancer Arthritis Asthma Surgical History History of hemorrhoidectomy (~04/02/13) History of total right hip replacement Social History Social History Alcohol intake: never Patient Tobacco Use Status: Never used Tobacco Smoked in Last 30 Days: No Use of substances other than those prescribed or required for medical reasons: No Advance Directives: No Advance Directives Information Provided: No Do you have a plan to hurt others: No Plan Physical Exam ED Vital Signs: Vital Signs - 24 hr 02/02/24 23:53 Temperature 96.8 F Pulse Rate 71 Respiratory Rate 16 Blood Pressure 137/84 Pulse Oximetry 98 Oxygen Delivery Method Room Air BMI result Body Mass Index 26.1 Appearance: Alert. Oriented X3. No acute distress. Anxious Eyes: PERRLA, No Nystagmus ENT: Pharynx normal. Oral Mucosa moist Neck: Normal inspection. Neck supple. CVS: Normal heart rate and rhythm. Pulses normal. Respiratory: No respiratory distress. Equal air entry bilateral, no wheezing/rales/rhonchi Abdomen: Soft and nontender. Bowel sounds are present, no mass palpable, no CVA tenderness Skin: Skin warm and dry. Normal skin color. Normal skin turgor. Extremities: No lower extremity edema. No calf tenderness Neuro: Oriented X 3. No motor deficit. No sensory deficit.No cerebellar signs , cranial nerves II-XII intact Medical Decision Making Medical Decision Making [facility] Narrative: Patient with increased anxiety and transient hypertension repeat blood was 137/84 will discharge patient home on lorazepam 0.5 mg every night as needed for anxiety/sleep advised to follow with PCP Lab Data [facility] Lab Attestation statement: I reviewed the patient's lab results. 02/03/24 00:10 02/03/24 00:10 Labs: Lab Results 02/03/24 Range/Units 00:10 WBC 4.1 L (4.8-10.8) X10*3/uL RBC 5.28 (4.60-5.80) X10*6/uL Hgb 16.4 (14.0-18.0) g/dl Hct 45.3 (42.0-52.0) % MCV 85.8 (80.0-98.0) fL MCH 31.1 (27.0-33.0) pg MCHC 36.2 H (31.0-36.0) g/dl RDW 13.1 (11.0-16.0) % Plt Count 177 (160-400) X10*3/uL MPV 9.3 L (9.4-12.4) fL Absolute Nucleated RBC 0.000 (0.0-0.012) X10*3/uL Nucleated RBC % (auto) 0.0 (0.0-0.2) /100WBC Sodium 139 (135-145) mmol/L Potassium 4.0 (3.3-5.1) mmol/L Chloride 102 (96-108) mmol/L Carbon Dioxide 28 (22-29) mmol/L Anion Gap 13 (12-20) BUN 16 (9-16) mg/dL Creatinine 0.79 (0.5-1.4) mg/dL Estim Creat Clear Calc 76.7 Estimated GFR > 60 Random Glucose 139 H (60-115) mg/dL Calcium 9.4 (8.4-10.2) mg/dL Total Bilirubin 1.2 H (0.0-1.0) mg/dL AST 18 (5-37) U/L ALT 22 (0-40) U/L Alkaline Phosphatase 64 (39-117) U/L Total Protein 7.3 (6.5-8.0) g/dL Albumin 4.2 (3.5-5.0) g/dL Urine Color Yellow Urine Appearance Clear Urine pH 5.0 (5.0-9.0) Ur Specific [place] 1.020 (1.005-1.025) Urine Protein Negative (Neg-Trace) mg/dL Urine Glucose (UA) Negative (Negative) mg/dL Urine Ketones Trace (Negative) mg/dL Urine Blood Negative (Negative) Urine Nitrite Negative (Negative) Ur Leukocyte Esterase Negative (Negative) Discharge Plan Discharge Clinical Impression: Hypertension, Anxiety Patient Disposition: Home, Self-Care Instructions: Chronic Hypertension (ED), Anxiety (ED) Additional Instructions: Continue medication for blood pressure Medication for anxiety as prescribed Decrease salt intake Follow with your PCP if blood pressure elevated more than 160/100 Prescriptions: New lorazepam [Ativan] 0.5 mg tablet 0.5 mg PO BEDTIME PRN (Reason: Anxiety/sleep) Qty: 10 0RF No Action albuterol sulfate 90 mcg/actuation HFA aerosol inhaler 2 puff inhalation Q4-6H PRN (Reason: Shortness Of Breath Or Wheezing) loratadine 10 mg tablet 10 mg PO QAM trazodone 50 mg tablet 25 mg PO BEDTIME tamsulosin 0.4 mg capsule 0.4 mg PO QPM omeprazole 40 mg capsule,delayed release(DR/EC) 40 mg PO BID duloxetine 30 mg capsule,delayed release(DR/EC) 30 mg PO DAILY acetaminophen 650 mg tablet extended release 650 mg PO Q6H PRN (Reason: fever) celecoxib 200 mg capsule 200 mg PO BID albuterol sulfate 2.5 mg /3 mL (0.083 %) Solution For Nebulization 2.5 mg INHALATION Q4-6H PRN (Reason: Shortness Of Breath Or Wheezing) amlodipine 5 mg tablet 5 mg PO QAM baclofen 10 mg tablet 10 mg PO BID PRN (Reason: muscle spasm) azelastine 137 mcg (0.1 %) aerosol,spray 1 spray intranasal BID brimonidine-timolol [Combigan] 0.2-0.5 % Drops 1 drp OPHTHALMIC (EYE) BID Durlaza 162.5 mg Capsule,Extended Release 24hr 162.5 mg PO DAILY latanoprost 0.005 % Drops 1 drp OPHTHALMIC (EYE) QPM famotidine 20 mg tablet 20 mg PO BEDTIME docusate sodium 100 mg Capsule 100 mg PO BID Lactobacillus acidophilus Capsule 10 mg PO DAILY fluticasone propionate 50 mcg/actuation spray,suspension 1 spray intranasal DAILY diclofenac sodium 1 % Gel 2 g TOPICAL BID PRN (Reason: Pain) Rx Instructions: apply to single elbow, wrist or hand; for hand includes palm/fingers/back of hand clonazepam 0.5 mg tablet 0.5 mg PO BID Print Language: Bulgarian
[2024-02-03] MEDS: LORazepam 0.5 MG TABLET PO (03:06)
[2024-02-03 03:38] VITALS: BP 136/83; PULSE 66; RESP 14; O2SAT 98
--- NOTE | 2024-02-03 03:38 | PC.NURSE ---
Pt ca&ox4, no signs of distress. Pt medicated per mar. Plan of care ongoing.
[2024-02-03 03:39] VITALS: BP 136/83; PULSE 66; RESP 14; TEMP 36.1; O2SAT 98
== END 2024-02-03 03:43 | disposition home or self-care (01) ==
PROVIDERS: Emergency Provider Internal Medicine; PCP Internal Medicine Geriatric Medicine
DX: F41.1 Generalized anxiety disorder (principal); I10 Essential (primary) hypertension; R42 Dizziness and giddiness; Z79.899 Other long term (current) drug therapy
CPT/HCPCS: 36415; 80053; 81003; 85027; 93005; 99283; 99284

== ENCOUNTER → 2024-02-03 00:14 | Outpatient (BNV) | payer OTHER, SELFPAY | PROVIDERS: Emergency Provider Internal Medicine; PCP Internal Medicine Geriatric Medicine; Visit Provider Internal Medicine Cardiovascular Disease | DX: R42 Dizziness and giddiness (principal) | CPT/HCPCS: 93010 ==

== ENCOUNTER 2024-02-11 06:34 | Day surgery (SDC) | payer OTHER, SELFPAY ==
[2024-01-24 07:50] VITALS: BMI 25.8
--- NOTE | 2024-02-08 09:19 | P.CONAN_ITS ---
Documented by User: Mikaela Doshi NP 02/08/24 09:32 HPI - Anesthesia Eval Consult details Narrative: 68yo M for Left Cataract Extraction IOL Insertion PCP cleared Right eye 01/28/24: Fent 100, Midaz 2 [facility] 02/03/24 with anxiety PMFSH Past Medical History Medical History Lung collapse Nephrolithiasis Osteoarthritis Urinary retention Esophageal reflux Urinary hesitancy Bladder outlet obstruction Urinary frequency Nocturia Glaucoma Gastritis Prostate cancer Arthritis Asthma Family History Family history of problems with anesthesia: No Surgical History Surgical History History of hemorrhoidectomy (~04/02/13) History of total right hip replacement History of Problems with Anesthesia: No Social History Social History Alcohol intake: never Patient Tobacco Use Status: Never used Tobacco Are you DNR?: No Advance Directives: No Advance Directives Information Provided: Yes Advance Directives on File: No Meds Allergies Allergy/AdvReac Type Severity Reaction Status Date / Time penicillin G [PENICILLIN G] Allergy Unknown HIVES Verified 02/11/24 13:01 diphenhydramine AdvReac Unknown Palpitation Verified 02/11/24 13:01 [From [facility]] s Home Medications ?Medication ?Instructions ?Recorded ?Confirmed ?Last Taken ?Type albuterol sulfate 90 mcg/actuation 2 puff inhalation Q4-6H PRN 01/03/23 01/24/24 Unknown History aerosol inhaler Shortness Of Breath Or Wheezing duloxetine 30 mg capsule,delayed 30 mg PO DAILY 01/03/23 02/11/24 02/10/24 History release loratadine 10 mg tablet 10 mg PO QAM 01/03/23 02/11/24 02/10/24 History omeprazole 40 mg capsule,delayed 40 mg PO BID 01/03/23 02/11/24 02/10/24 History release tamsulosin 0.4 mg capsule 0.4 mg PO QPM 01/03/23 02/11/24 02/10/24 History trazodone 50 mg tablet 25 mg PO BEDTIME 01/03/23 02/11/24 02/10/24 History Lactobacillus acidophilus 10 mg PO DAILY 01/24/24 01/24/24 Unknown History acetaminophen 650 mg 650 mg PO Q6H PRN fever 01/24/24 01/24/24 Unknown History tablet,extended release albuterol sulfate 2.5 mg/3 mL 2.5 mg inhalation Q4-6H PRN 01/24/24 01/24/24 Unknown History (0.083 %) solution for nebulization Shortness Of Breath Or Wheezing amlodipine 5 mg tablet 5 mg PO QAM 01/24/24 02/11/24 02/10/24 History aspirin 162.5 mg capsule,extended 162.5 mg PO DAILY 01/24/24 02/11/24 02/10/24 History release 24 hr (Durlaza) azelastine 137 mcg (0.1 %) nasal 1 spray intranasal BID 01/24/24 01/24/24 Unknown History spray aerosol baclofen 10 mg tablet 10 mg PO BID PRN muscle spasm 01/24/24 01/24/24 Unknown History brimonidine 0.2 %-timolol 0.5 % 1 drp ophthalmic (eye) BID 01/24/24 01/24/24 Unknown History eye drops (Combigan) celecoxib 200 mg capsule 200 mg PO BID 01/24/24 02/11/24 02/10/24 History diclofenac sodium 1 % topical gel 2 g topical BID PRN Pain 01/24/24 01/24/24 Unknown History docusate sodium 100 mg capsule 100 mg PO BID 01/24/24 01/24/24 Unknown History famotidine 20 mg tablet 20 mg PO BEDTIME 01/24/24 02/11/24 02/10/24 History fluticasone propionate 50 1 spray intranasal DAILY 01/24/24 01/24/24 Unknown History mcg/actuation nasal spray,suspension latanoprost 0.005 % eye drops 1 drp ophthalmic (eye) QPM 01/24/24 01/24/24 Unknown History clonazepam 0.5 mg tablet 0.5 mg PO BID 01/28/24 02/11/24 02/11/24 History Exam Height,Weight and Vital Signs: Height 5 ft 5 in Weight 70.307 kg Assessment and Plan Assessment Anesthesia Assessment: Chart Reviewed Final Anesthetic Review Family History of Problems with Anesthesia: No History of Problems with Anesthesia: No Documented by User: Kate Elizabeth MD 02/11/24 13:04 [facility] Past Medical History Medical History Lung collapse Nephrolithiasis Osteoarthritis Urinary retention Esophageal reflux Urinary hesitancy Bladder outlet obstruction Urinary frequency Nocturia Glaucoma Gastritis Prostate cancer Arthritis Asthma Surgical History Surgical History History of hemorrhoidectomy (~04/02/13) History of total right hip replacement Social History Social History Alcohol intake: never Patient Tobacco Use Status: Never used Tobacco Are you DNR?: No Advance Directives: No Advance Directives Information Provided: Yes Advance Directives on File: No Meds Allergies Allergy/AdvReac Type Severity Reaction Status Date / Time penicillin G [PENICILLIN G] Allergy Unknown HIVES Verified 02/11/24 13:01 diphenhydramine AdvReac Unknown Palpitation Verified 02/11/24 13:01 [From [facility]] s Home Medications ?Medication ?Instructions ?Recorded ?Confirmed ?Last Taken ?Type albuterol sulfate 90 mcg/actuation 2 puff inhalation Q4-6H PRN 01/03/23 01/24/24 Unknown History aerosol inhaler Shortness Of Breath Or Wheezing duloxetine 30 mg capsule,delayed 30 mg PO DAILY 01/03/23 02/11/24 02/10/24 History release loratadine 10 mg tablet 10 mg PO QAM 01/03/23 02/11/24 02/10/24 History omeprazole 40 mg capsule,delayed 40 mg PO BID 01/03/23 02/11/24 02/10/24 History release tamsulosin 0.4 mg capsule 0.4 mg PO QPM 01/03/23 02/11/24 02/10/24 History trazodone 50 mg tablet 25 mg PO BEDTIME 01/03/23 02/11/24 02/10/24 History Lactobacillus acidophilus 10 mg PO DAILY 01/24/24 01/24/24 Unknown History acetaminophen 650 mg 650 mg PO Q6H PRN fever 01/24/24 01/24/24 Unknown History tablet,extended release albuterol sulfate 2.5 mg/3 mL 2.5 mg inhalation Q4-6H PRN 01/24/24 01/24/24 Unknown History (0.083 %) solution for nebulization Shortness Of Breath Or Wheezing amlodipine 5 mg tablet 5 mg PO QAM 01/24/24 02/11/24 02/10/24 History aspirin 162.5 mg capsule,extended 162.5 mg PO DAILY 01/24/24 02/11/24 02/10/24 History release 24 hr (Durlaza) azelastine 137 mcg (0.1 %) nasal 1 spray intranasal BID 01/24/24 01/24/24 Unknown History spray aerosol baclofen 10 mg tablet 10 mg PO BID PRN muscle spasm 01/24/24 01/24/24 Unknown History brimonidine 0.2 %-timolol 0.5 % 1 drp ophthalmic (eye) BID 01/24/24 01/24/24 Unknown History eye drops (Combigan) celecoxib 200 mg capsule 200 mg PO BID 01/24/24 02/11/24 02/10/24 History diclofenac sodium 1 % topical gel 2 g topical BID PRN Pain 01/24/24 01/24/24 Unknown History docusate sodium 100 mg capsule 100 mg PO BID 01/24/24 01/24/24 Unknown History famotidine 20 mg tablet 20 mg PO BEDTIME 01/24/24 02/11/24 02/10/24 History fluticasone propionate 50 1 spray intranasal DAILY 01/24/24 01/24/24 Unknown History mcg/actuation nasal spray,suspension latanoprost 0.005 % eye drops 1 drp ophthalmic (eye) QPM 01/24/24 01/24/24 Unknown History clonazepam 0.5 mg tablet 0.5 mg PO BID 01/28/24 02/11/24 02/11/24 History Exam Airway Mallampati Class: II TM Dist: >3cm Neck ROM: Full Partial: Upper (left at home) Heart: rrr Lungs: cta Assessment and Plan Assessment Anesthesia Assessment: Anesthesia Plan Discussed Final Anesthetic Review NPO: Yes ASA Class: II Final Preanesthetic Review: No Changes in Pt Med Stat, Meds/Allgs Chart Reviewed and Consent Obtained/Reviewed Patient Risk: Low Procedure Risk: Low Anesthetic Plan Anesthetic Plan: MAC: Disposition: Standard PACU
[2024-02-11] MEDS: Tetracaine HCl/PF 0.5% Oph Sol 4 ML DROPS 1 DROP EYE-LEFT (12:18)
[2024-02-11] MEDS: Cyclopentolate 1 % Ophth Sol 2 ML DRPBTL 1 DROP EYE-LEFT ×3 (12:19→12:35)
[2024-02-11] MEDS: Tropicamide 1 % Ophth Sol 3 ML BTL 1 DROP EYE-LEFT ×3 (12:21→12:37)
[2024-02-11] MEDS: Lactated Ringers 500 ML 50 ML IV (12:23)
[2024-02-11] MEDS: Ketorolac Tromethamine 0.5% Op 10 ML DROPS 1 DROP EYE-LEFT ×3 (12:23→12:39)
[2024-02-11] MEDS: Phenylephrine HCL 2.5% Oph SoL 2 ML BOTTLE 1 DROP EYE-LEFT ×3 (12:25→12:41)
[2024-02-11 12:27] VITALS: BP 137/86; PULSE 74; RESP 16; TEMP 36.1; O2SAT 98
--- NOTE | 2024-02-11 13:32 | MHC.SHP ---
Pre-Procedural Eval Section A - 24 Hr Update-Section A only Date of Service: 02/11/24 The patient is an INPATIENT: No Changes since office visit: No Cold of Flu in the past 2 weeks, No New Medical Problems, No Changes in Medication and No Patient answered all questions The patient has been examined within 24 hours of the surgical procedure. The History & Physical has been completed within 30 days and I have reviewed it.: Yes Section B - Complete if H&P > 30 days Chief Complaint: Age-related nuclear cataract, left eye Allergies: Allergies Allergy/AdvReac Type Severity Reaction Status Date / Time penicillin G [PENICILLIN G] Allergy Unknown HIVES Verified 02/11/24 13:01 diphenhydramine AdvReac Unknown Palpitation Verified 02/11/24 13:01 [From [facility]] s Plan Diagnosis/Plan: Unchanged I have reviewed the history and physical and performed a pertinent physical examination on my patient. No changes have occurred unless specified. Time Spent With Patient Time: Total time managing care of this patient today ____ minutes.
--- NOTE | 2024-02-11 13:33 | HO.PNOPHT ---
Ophthalmology Procedure Procedure Date of Service: 02/11/24 Ophthalmology Viscoelastic: Healon Duet Dual Pack Pro Ophthalmology Lenses: IOL Acrysof MP - MA60AC (22) Procedure Notes: PREOPERATIVE DIAGNOSIS: Decreased visual acuity left eye secondary to cataract POSTOPERATIVE DIAGNOSIS: Same PROCEDURE: Left cataract extraction with intraocular lens insertion SURGEON: Devon Rowell M.D. ANESTHESIA: Topical/MAC ESTIMATED BLOOD LOSS: None COMPLICATIONS: None After obtaining informed consent, the patient was brought to the operation room suite and placed in the supine position. After adequate sedation per anesthesia, topical drops of Tetracaine were given to the left eye. The eye was then prepped and draped in the usual sterile fashion. The operating room microscope was then positioned over the operative eye and a lid speculum placed. A paracentesis was created. Viscoelastic was then instilled into the anterior chamber. A three plane incision was then created temporally, utilizing a 2.85 mm keratome. Capsulotomy forceps were then utilized to create a circular tear capsulotomy. Hydrodissection and hydrodelineation were carried out until adequate mobilization of the nucleus occurred. Phacoemulsification was then utilized to remove the dense central nucleus followed by removal of the cortical material utilizing the automated aspiration irrigation unit. Viscoat elastic was instilled into the posterior capsular bag followed by placement of a posterior chamber intraocular lens without difficulty. The residual Viscoat elastic was then removed utilizing the automated IA machine. The wound was check and found to be watertight. The patient tolerated the procedure well and the lid speculum was removed. Intracameral injection of Vigamox 0.1 mL followed by a subtenon injection of Kenalog-40 0.2 mL were administered. The patient will be seen in the a.m.
[2024-02-11 13:59] VITALS: BP 124/79; PULSE 68; RESP 17; TEMP 36.6; O2SAT 98
== END 2024-02-11 14:01 | disposition home or self-care (01) ==
PROVIDERS: PCP Internal Medicine Geriatric Medicine; Visit Provider Ophthalmology
PROC: (CPT 66985; principal; 2024-02-11 09:30)
DX: H25.12 Age-related nuclear cataract, left eye (principal); H52.4 Presbyopia; H40.052 Ocular hypertension, left eye; H11.153 Pinguecula, bilateral; H18.413 Arcus senilis, bilateral; H40.1113 Primary open-angle glaucoma, right eye, severe stage; M79.7 Fibromyalgia; J45.909 Unspecified asthma, uncomplicated; I10 Essential (primary) hypertension; M06.9 Rheumatoid arthritis, unspecified; Z79.899 Other long term (current) drug therapy; Z79.51 Long term (current) use of inhaled steroids; F32.A Depression, unspecified; Z88.0 Allergy status to penicillin; Z88.8 Allergy status to other drugs, medicaments and biological substances
CPT/HCPCS: 66984; J2250; J3010; J3301; V2630

== ENCOUNTER 2024-03-23 16:27 | Emergency (ER) | payer OTHER, SELFPAY ==
--- NOTE | ~2024-03-23 | XR_ITS ---
EXAMINATION: XR CHEST CLINICAL INFORMATION: Upper respiratory infection symptoms COMPARISON: Chest x-ray November 18, 2023 TECHNIQUE: 2 views of the chest were obtained. FINDINGS: Lungs are clear. No pulmonary vascular congestion. There is no pleural effusion. The heart size is normal. The cardiac and mediastinal contours are normal. There are multilevel degenerative changes of dorsal spine. Chronic change of right clavicle, there is shortening and superior angulation of the clavicle. XR/XR chest 2V IMPRESSION: Unremarkable examination.
[2024-03-23 16:32] VITALS: BP 147/79; PULSE 62; RESP 18; TEMP 36.9; O2SAT 98; BMI 25.8
--- NOTE | 2024-03-23 16:33 | ED_ITS ---
HPI - URI/Sore Throat General Chief Complaint: Upper Respiratory Symptoms Stated Complaint: coughing, sore from coughing Time Seen by Provider: 03/23/24 18:16 Source: patient and family Mode of arrival: ambulatory Limitations: no limitations History of Present Illness ED Provider: Nuha grant APRN HPI Narrative: 68-year-old male with a history of asthma, hypertension, anxiety, depression, GERD, glaucoma, BPH presents the ER with complaints of 5 days of cough, congestion, chest discomfort with coughing, headache, body aches. No shortness a breath, leg swelling, leg pain, abdominal pain, vomiting, diarrhea, neck pain, neck stiffness, skin rash, fevers, chills. No recent travel. No sick contact. No history of DVT or PE. No family history of same. Patient reports history of bronchitis and this feels similar. Related Data Home Medications ?Medication ?Instructions ?Recorded ?Confirmed albuterol sulfate 90 mcg/actuation 2 puff inhalation Q4-6H PRN 01/03/23 01/24/24 aerosol inhaler Shortness Of Breath Or Wheezing duloxetine 30 mg capsule,delayed 30 mg PO DAILY 01/03/23 02/11/24 release loratadine 10 mg tablet 10 mg PO QAM 01/03/23 02/11/24 omeprazole 40 mg capsule,delayed 40 mg PO BID 01/03/23 02/11/24 release tamsulosin 0.4 mg capsule 0.4 mg PO QPM 01/03/23 02/11/24 trazodone 50 mg tablet 25 mg PO BEDTIME 01/03/23 02/11/24 Lactobacillus acidophilus 10 mg PO DAILY 01/24/24 01/24/24 acetaminophen 650 mg 650 mg PO Q6H PRN fever 01/24/24 01/24/24 tablet,extended release albuterol sulfate 2.5 mg/3 mL 2.5 mg inhalation Q4-6H PRN 01/24/24 01/24/24 (0.083 %) solution for nebulization Shortness Of Breath Or Wheezing amlodipine 5 mg tablet 5 mg PO QAM 01/24/24 02/11/24 aspirin 162.5 mg capsule,extended 162.5 mg PO DAILY 01/24/24 02/11/24 release 24 hr (Durlaza) azelastine 137 mcg (0.1 %) nasal 1 spray intranasal BID 01/24/24 01/24/24 spray baclofen 10 mg tablet 10 mg PO BID PRN muscle spasm 01/24/24 01/24/24 brimonidine 0.2 %-timolol 0.5 % 1 drp ophthalmic (eye) BID 01/24/24 01/24/24 eye drops (Combigan) celecoxib 200 mg capsule 200 mg PO BID 01/24/24 02/11/24 diclofenac sodium 1 % topical gel 2 g topical BID PRN Pain 01/24/24 01/24/24 docusate sodium 100 mg capsule 100 mg PO BID 01/24/24 01/24/24 famotidine 20 mg tablet 20 mg PO BEDTIME 01/24/24 02/11/24 fluticasone propionate 50 1 spray intranasal DAILY 01/24/24 01/24/24 mcg/actuation nasal spray,suspension latanoprost 0.005 % eye drops 1 drp ophthalmic (eye) QPM 01/24/24 01/24/24 clonazepam 0.5 mg tablet 0.5 mg PO BID 01/28/24 02/11/24 Previous Rx's ?Medication ?Instructions ?Recorded lorazepam 0.5 mg tablet (Ativan) 0.5 mg PO BEDTIME PRN 02/03/24 Anxiety/sleep #10 tabs azithromycin 250 mg tablet See Rx Instructions PO .COMPLEX #6 03/23/24 tabs benzonatate 200 mg capsule 200 mg PO TID PRN cough #15 caps 03/23/24 prednisone 20 mg tablet 40 mg (2 x 20 mg) PO DAILY #10 tabs 03/23/24 Allergies Allergy/AdvReac Type Severity Reaction Status Date / Time penicillin G [PENICILLIN G] Allergy Unknown HIVES Verified 03/23/24 16:32 diphenhydramine AdvReac Unknown Palpitation Verified 03/23/24 16:32 [From [email or web address]] s Review of Systems 2 Review of Systems: Yes all other systems are reviewed and are negative Constitutional: Constitutional: Reports no additional constitutional complaints, Reports body ache(s), Denies chills, Denies fever(s), Reports headache(s) and Denies weakness Eyes: Eyes: Reports no additional eye complaints and Denies change in vision ENT: Reports system reviewed and no additional complaints, except as documented, Denies dizziness, Reports headache(s), Denies nasal congestion, Denies nasal discharge and Denies neck pain Cardiovascular: Cardiovascular: Reports no additional cardiovascular complaints, Denies chest pain, Denies leg edema and Denies dyspnea Respiratory: Respiratory: Reports no additional respiratory complaints, Reports cough and Denies dyspnea Gastrointestinal: Gastrointestinal: Reports no additional gastrointestinal complaints, Denies abdominal pain, Denies diarrhea, Denies nausea and Denies vomiting Genitourinary: Genitourinary: Denies urinary incontinence Musculoskeletal: Musculoskeletal: Reports no additional musculoskeletal complaints, Denies back pain, Denies arthralgias, Denies joint swelling, Denies neck pain, Denies numbness and Denies tingling Integumentary/Breasts: Skin/Breast: Reports system reviewed and no additional complaints, except as docu and Denies rash Neurologic: Reports system reviewed and no additional complaints, except as documented, Denies Abnormal speech present, Denies dizziness, Reports headache(s), Denies numbness, Denies tingling and Denies weakness PMFSH Past Medical History Attestation statement: The following information was validated with the patient. Source: old records reviewed and nursing notes reviewed Medical History Lung collapse Nephrolithiasis Osteoarthritis Urinary retention Esophageal reflux Urinary hesitancy Bladder outlet obstruction Urinary frequency Nocturia Glaucoma Gastritis Prostate cancer Arthritis Asthma Surgical History History of hemorrhoidectomy (~04/02/13) History of total right hip replacement Social History Social History Alcohol intake: never Patient Tobacco Use Status: Never used Tobacco Advance Directives: No Advance Directives Information Provided: Yes Do you have a plan to hurt others: No Plan Physical Exam 2 Vital Signs: Vital Signs: Last Vital Signs Temp 98.4 F 03/23/24 19:20 Pulse 56 03/23/24 19:20 Resp 16 03/23/24 19:20 BP 133/81 03/23/24 19:20 Pulse Ox 99 03/23/24 19:20 O2 Del Method Room Air 03/23/24 19:20 BMI result Body Mass Index 25.8 Const: General: cooperative, healthy appearing, comfortable and no acute distress Orientation/consciousness: patient oriented x3 Limitations: no limitations HEENT: Head: Yes normal to inspection Ears: hearing grossly normal bilaterally and TM's normal bilaterally General nose exam: Normal external nose present Face and sinus: Yes normal facial exam Mouth: Normal oral and palatal mucosa present Throat: Yes posterior oropharynx normal, Yes tonsils normal and Yes uvula midline Eyes: General: appearance normal, both eyes and all related structures P upils: Equal, round and reactive pupils present Neck: Neck: Yes normal visual inspection, Yes full ROM, Yes no lymphadenopathy and Yes no meningeal signs Chest: Chest palpation & inspection: normal inspection of the chest Resp: Effort & Inspection: normal respiratory effort Auscultation: clear to auscultation bilaterally Cardio: Rate: regular rate Rhythm: regular rhythm Peripheral pulses: P eripheral pulses 2+ throughout GI: Inspection: Yes normal to inspection Palpation (GI): Soft to palpation and nontender Auscultation: normal bowel sounds Back/Spine/Pelvis: Thoracic/Lumbar Spine: thoracic and lumbar spine normal to inspection Skin: General skin exam: no rashes or lesions noted Neuro: General: patient oriented x3, no meningeal signs, no focal motor deficits and normal sensation to monofilament Cranial nerves: Yes Equal, round and reactive pupils present Cognition (Neuro): normal cognition S peech: No Abnormal speech present Gait exam (Neuro): Normal gait present M otor exam (neuro): 5/5 motor strength present throughout Extrem: General: Yes normal to inspection Course Course Course Narrative: This is a rapid medical exam. Deferred additional HPI, ROS, PE to primary provider. 68 yo male here with cough, sore throat, chest discomfort with coughing. Will obtain viral testing, CXR REY -Toby Grant APRN Reevaluation(s) Reevaluation #1: Labs unremarkable and really unchanged from baseline. Chest x-ray shows no signs of active pneumonia. His viral testing is negative. Likely bronchitis. Patient be discharged home with antibiotic, prednisone and cough suppressant. Reviewed worrisome signs and symptoms of when to return to the emergency room. Comfortable plan for discharge home. Medical Decision Making Medical Decision Making [facility] Narrative: 68-year-old male with a history of asthma, hypertension, anxiety, depression, GERD, glaucoma, BPH presents the ER with complaints of 5 days of cough, congestion, chest discomfort with coughing, headache, body aches. No shortness a breath, leg swelling, leg pain, abdominal pain, vomiting, diarrhea, neck pain, neck stiffness, skin rash, fevers, chills. No recent travel. No sick contact. No history of DVT or PE. No family history of same. Patient reports history of bronchitis and this feels similar. Lungs are clear. Vitals are stable. Exam is benign. Will send viral testing, chest x-ray, labs Differential Diagnosis Differential Diagnoses: The differential diagnosis associated with the presentation includes Bronchitis, viral syndrome, influenza Low suspicion for PE, pneumonia, ACS No clinical findings concerning for DVT, no hypoxia, no tachypnea, no tachycardia, no risk factors for DVT or PE. History of present illness is atypical for ACS Admission/Observation Consideration of admission/observation: Escalation of care including admission/observation considered Low suspicion for PE, pneumonia, ACS requiring advanced imaging and/or admission Lab Data MDM Lab Attestation statement: I reviewed the patient's lab results. 03/23/24 18:27 03/23/24 18:27 Labs: Lab Results 03/23/24 03/23/24 Range/Units 16:37 18:27 WBC 3.5 L (4.8-10.8) X10*3/uL RBC 4.68 (4.60-5.80) X10*6/uL Hgb 14.8 (14.0-18.0) g/dl Hct 41.6 L (42.0-52.0) % MCV 88.9 (80.0-98.0) fL MCH 31.6 (27.0-33.0) pg MCHC 35.6 (31.0-36.0) g/dl RDW 14.0 (11.0-16.0) % Plt Count 190 (160-400) X10*3/uL MPV 9.4 (9.4-12.4) fL Immature Gran % (Auto) 0.0 (0.0-0.4) % Neut % (Auto) 28.1 L (45-73) % Lymph % (Auto) 56.4 H (20-40) % [place] % (Auto) 10.2 (2-11) % Eos % (Auto) 4.2 H (0-4) % Baso % (Auto) 1.1 (0-2) % Lymph # (Auto) 2.0 (1.2-4.9) X10*3/uL [place] # (Auto) 0.4 (0.1-1.2) X10*3/uL Eos # (Auto) 0.2 (0.0-0.4) X10*3/uL Baso # (Auto) 0.0 (0.0-0.2) X10*3/uL Abs Immat Gran (auto) 0.00 (0.00-0.03) X10*3/uL Absolute Neuts (auto) 1.0 L (2.0-8.3) x10*3/uL Absolute Nucleated RBC 0.000 (0.0-0.012) X10*3/uL Nucleated RBC % (auto) 0.0 (0.0-0.2) /100WBC Smear Tech's Comments VERIFIED Sodium 142 (135-145) mmol/L Potassium 4.2 (3.3-5.1) mmol/L Chloride 106 (96-108) mmol/L Carbon Dioxide 31 H (22-29) mmol/L Anion Gap 9 L (12-20) BUN 11 (9-16) mg/dL Creatinine 0.72 (0.5-1.4) mg/dL Estim Creat Clear Calc 84.2 Estimated GFR > 60 Random Glucose 96 (60-115) mg/dL Calcium 9.1 (8.4-10.2) mg/dL Total Bilirubin 0.9 (0.0-1.0) mg/dL Direct Bilirubin 0.3 (0.0-0.5) mg/dL AST 15 (5-37) U/L ALT 12 (0-40) U/L Alkaline Phosphatase 56 (39-117) U/L Total Protein 6.6 (6.5-8.0) g/dL Albumin 3.9 (3.5-5.0) g/dL Influenza Type A (PCR) NEGATIVE (Negative) Influenza Type B (PCR) NEGATIVE (Negative) RSV RNA Qual (PCR) NEGATIVE (Negative) SARS-CoV-2 RNA (RT-PCR) NEGATIVE (Negative) S. pyogenes GrpA [place] Negative (Negative) Independent Interpretation I performed an independent interpretation of an: Plain X-Ray Interpretation: I independently reviewed the x-ray and agree with the radiology report Radiology Impression Discussion of test interpretation with radiology: I have reviewed the radiologist's reading. Radiologist Impression: Launch?Image [address] [id number] XRay Report Signed Patient: Gal Valdez MR#: [id number] : 1955 Acct:[id number] Age/Sex: 68 / M ADM Date: 03/23/24 Loc: HO.ED Attending Dr: Ordering Physician: Nuha Liu NP Date of Service: 03/23/24 Procedure(s): XR chest 2V Accession Number(s): [id number] cc: Name,Gwyn BOSTON; Nuha Liu NP~ EXAMINATION: XR CHEST CLINICAL INFORMATION: Upper respiratory infection symptoms COMPARISON: Chest x-ray November 18, 2023 TECHNIQUE: 2 views of the chest were obtained. FINDINGS: Lungs are clear. No pulmonary vascular congestion. There is no pleural effusion. The heart size is normal. The cardiac and mediastinal contours are normal. There are multilevel degenerative changes of dorsal spine. Chronic change of right clavicle, there is shortening and superior angulation of the clavicle. XR/XR chest 2V IMPRESSION: Unremarkable examination. Independent Historian Clinical information obtained from an independent historian. History obtained from or confirmed by: Spouse Tests considered The following testing was considered but not selected: Low suspicion for PE, pneumonia, ACS requiring advanced imaging Prescription Management I considered prescription management with: Antibiotic Chronic Conditions Patient?s care impacted by: Hypertension Discharge Plan Discharge Clinical Impression: Bronchitis Patient Disposition: Home, Self-Care Instructions: Acute Bronchitis (ED) Additional Instructions: Your blood work is normal Your x-ray shows no signs of pneumonia Your testing for flu, COVID, RSV are negative Continue your inhaler as needed Take Motrin or Tylenol for any pain or fever Increase fluids at home Return for any worsening symptoms Prescriptions: New azithromycin 250 mg tablet See Rx Instructions .ROUTE .COMPLEX Qty: 6 0RF Rx Instructions: For 250 mg dose pack: take 500 mg today (day 1), then 250 mg for 4 days (days 2-5) prednisone 20 mg tablet 40 mg PO DAILY Qty: 10 0RF benzonatate 200 mg capsule 200 mg PO TID PRN (Reason: cough) Qty: 15 0RF No Action albuterol sulfate 90 mcg/actuation HFA aerosol inhaler 2 puff inhalation Q4-6H PRN (Reason: Shortness Of Breath Or Wheezing) loratadine 10 mg tablet 10 mg PO QAM trazodone 50 mg tablet 25 mg PO BEDTIME tamsulosin 0.4 mg capsule 0.4 mg PO QPM omeprazole 40 mg capsule,delayed release(DR/EC) 40 mg PO BID duloxetine 30 mg capsule,delayed release(DR/EC) 30 mg PO DAILY acetaminophen 650 mg tablet extended release 650 mg PO Q6H PRN (Reason: fever) celecoxib 200 mg capsule 200 mg PO BID albuterol sulfate 2.5 mg /3 mL (0.083 %) Solution For Nebulization 2.5 mg INHALATION Q4-6H PRN (Reason: Shortness Of Breath Or Wheezing) amlodipine 5 mg tablet 5 mg PO QAM baclofen 10 mg tablet 10 mg PO BID PRN (Reason: muscle spasm) azelastine 137 mcg (0.1 %) aerosol,spray 1 spray intranasal BID brimonidine-timolol [Combigan] 0.2-0.5 % Drops 1 drp OPHTHALMIC (EYE) BID Durlaza 162.5 mg Capsule,Extended Release 24hr 162.5 mg PO DAILY latanoprost 0.005 % Drops 1 drp OPHTHALMIC (EYE) QPM famotidine 20 mg tablet 20 mg PO BEDTIME docusate sodium 100 mg Capsule 100 mg PO BID Lactobacillus acidophilus Capsule 10 mg PO DAILY fluticasone propionate 50 mcg/actuation spray,suspension 1 spray intranasal DAILY diclofenac sodium 1 % Gel 2 g TOPICAL BID PRN (Reason: Pain) Rx Instructions: apply to single elbow, wrist or hand; for hand includes palm/fingers/back of hand clonazepam 0.5 mg tablet 0.5 mg PO BID lorazepam [Ativan] 0.5 mg tablet 0.5 mg PO BEDTIME PRN (Reason: Anxiety/sleep) Qty: 10 0RF Referrals: Name,MD Gwyn [Primary Care Provider] - 1 week Interventions: ED Discharge Assessment Last Done: 03/23/24 19:20 Discharge Date/Time: 03/23/24 19:21 Print Language: Tajik
[2024-03-23 17:18] LABS: IDNOW Serial# 08D9AD1C; Strep A Nucleic Acid Negative (Negative)
[2024-03-23 17:27] LABS: Influenza A PCR NEGATIVE (Negative); Influenza B PCR NEGATIVE (Negative); Resp Syncy Virus RNA Qual PCR NEGATIVE (Negative); SARS COV2 PCR INHOUSE NEGATIVE (Negative)
[2024-03-23 18:16] VITALS: BP 133/81; PULSE 56; RESP 16; TEMP 36.9; O2SAT 99
[2024-03-23 18:48] LABS: Alanine Aminotransferase 12 U/L (0-40); Albumin Level 3.9 g/dL (3.5-5.0); Alkaline Phosphatase 56 U/L (39-117); Anion Gap 9 (12-20); Aspartate Amino Transferase 15 U/L (5-37); Bilirubin Direct 0.3 mg/dL (0.0-0.5); Bilirubin Total 0.9 mg/dL (0.0-1.0); Blood Urea Nitrogen 11 mg/dL (9-16); Calcium 9.1 mg/dL (8.4-10.2); Carbon Dioxide 31 mmol/L (22-29); Chloride 106 mmol/L (96-108); Creatinine Clr Calc Pharmacy 84.2; Estimated Glomerular Filt Rate > 60; Glucose Random 96 mg/dL (60-115); Potassium 4.2 mmol/L (3.3-5.1); Sodium 142 mmol/L (135-145); Total Protein 6.6 g/dL (6.5-8.0)
[2024-03-23 18:49] LABS: Basophils Percent Auto 1.1 % (0-2); Eosinophils Absolute Auto 0.2 X10*3/uL (0.0-0.4); Eosinophils Percent Auto 4.2 % (0-4); Hematocrit 41.6 % (42.0-52.0); Hemoglobin 14.8 g/dl (14.0-18.0); Lymphocytes Percent Auto 56.4 % (20-40); MANUAL DIFF FLAG SCAN; Mean Corpuscular HGB Conc 35.6 g/dl (31.0-36.0); Mean Corpuscular Hemoglobin 31.6 pg (27.0-33.0); Mean Corpuscular Volume 88.9 fL (80.0-98.0); Mean Platelet Volume 9.4 fL (9.4-12.4); Monocytes Absolute Auto 0.4 X10*3/uL (0.1-1.2); Monocytes Percent Auto 10.2 % (2-11); Neutrophils Percent Auto 28.1 % (45-73); Platelet Count 190 X10*3/uL (160-400); Red Blood Count 4.68 X10*6/uL (4.60-5.80); SCAN SMEAR FLAG 1; White Blood Count 3.5 X10*3/uL (4.8-10.8)
[2024-03-23 19:06] LABS: SLIDE REVIEW VERIFIED
[2024-03-23 19:20] VITALS: BP 133/81; PULSE 56; RESP 16; TEMP 36.9; O2SAT 99
== END 2024-03-23 19:21 | disposition home or self-care (01) ==
PROVIDERS: Nurse Practitioner Family; Emergency Provider Emergency Medicine; PCP Internal Medicine Geriatric Medicine
DX: J40 Bronchitis, not specified as acute or chronic (principal); R05.9 Cough, unspecified; Z03.818 Encounter for observation for suspected exposure to other biological agents ruled out; Z79.899 Other long term (current) drug therapy
CPT/HCPCS: 0241U; 36415; 71046; 80048; 80076; 85025; 87651; 99283

== ENCOUNTER 2024-06-30 14:47 | Emergency (ER) | payer OTHER, SELFPAY ==
--- NOTE | ~2024-06-30 | XR_ITS ---
EXAMINATION: XR CHEST 2 VIEW CLINICAL INFORMATION: Chest pain COMPARISON: 03/23/2024 TECHNIQUE: PA and lateral views of the chest obtained. FINDINGS: The lungs are clear. There are no pleural effusions. The cardiomediastinal silhouette is normal. Chronic postsurgical shortening of the angulated right clavicle is unchanged. XR/XR chest 2V IMPRESSION: No acute cardiopulmonary disease. Electronically signed by: Ervin Mendoza MD 06/30/2024 03:40 PM EDT
--- NOTE | 2024-06-30 14:48 | ECG_ITS ---
Test Reason : cp Blood Pressure : / mmHG Vent. Rate : 049 BPM Atrial Rate : 049 BPM P-R Int : 138 ms QRS Dur : 094 ms QT Int : 432 ms P-R-T Axes : 034 -18 -06 degrees QTc Int : 390 ms Sinus bradycardia Minimal voltage criteria for LVH, may be normal variant ( R in aVL ) Nonspecific T wave abnormality Abnormal ECG When compared with ECG of 03-FEB-2024 00:14, No significant change was found Referred By: Sherron Hwang Electronically Signed By:SHANTEL COUGHLIN
[2024-06-30 15:05] VITALS: BP 147/72; PULSE 51; RESP 17; TEMP 36.6; O2SAT 98; BMI 25.8
[2024-06-30 15:05] LABS: Basophils Absolute Auto 0.1 X10*3/uL (0.0-0.2); Basophils Percent Auto 1.5 % (0-2); Eosinophils Absolute Auto 0.2 X10*3/uL (0.0-0.4); Hematocrit 42.6 % (42.0-52.0); Hemoglobin 15.2 g/dl (14.0-18.0); Lymphocytes Percent Auto 59.6 % (20-40); MANUAL DIFF FLAG SCAN; Mean Corpuscular HGB Conc 35.7 g/dl (31.0-36.0); Mean Corpuscular Hemoglobin 30.7 pg (27.0-33.0); Mean Corpuscular Volume 86.1 fL (80.0-98.0); Monocytes Absolute Auto 0.4 X10*3/uL (0.1-1.2); Monocytes Percent Auto 10.5 % (2-11); Neutrophils Absolute Auto 0.8 x10*3/uL (2.0-8.3); Neutrophils Percent Auto 22.4 % (45-73); Platelet Count 183 X10*3/uL (160-400); Red Blood Count 4.95 X10*6/uL (4.60-5.80); Red Cell Distribution Width 12.7 % (11.0-16.0); SCAN SMEAR FLAG 1; White Blood Count 3.3 X10*3/uL (4.8-10.8)
--- NOTE | 2024-06-30 15:05 | ED.CHESTPAIN ---
HPI - Chest Pain General Chief Complaint: Chest Pain Stated Complaint: chest pain Time Seen by Provider: 06/30/24 19:42 Source: patient, family and bilingual interpreter Mode of arrival: ambulatory Limitations: no limitations History of Present Illness ED Provider: DR. Freedman HPI narrative: 68-year-old male came in for evaluation of generalized body ache, headache, chest pain, dry cough for 4 days. No sick contacts, no recent travel. No fever, no chills.. Patient with history of hypertension take hypertension medication feels that his blood pressure sometimes goes high patient was instructed to take his blood pressure reading 3 times a day for the next week and shows a records of those reading to his PCP for per management of his blood pressure patient currently has blood pressure of 132/ 78. Related Data Home Medications ?Medication ?Instructions ?Recorded ?Confirmed albuterol sulfate 90 mcg/actuation 2 puff inhalation Q4-6H PRN 01/03/23 01/24/24 aerosol inhaler Shortness Of Breath Or Wheezing duloxetine 30 mg capsule,delayed 30 mg PO DAILY 01/03/23 02/11/24 release loratadine 10 mg tablet 10 mg PO QAM 01/03/23 02/11/24 omeprazole 40 mg capsule,delayed 40 mg PO BID 01/03/23 02/11/24 release tamsulosin 0.4 mg capsule 0.4 mg PO QPM 01/03/23 02/11/24 trazodone 50 mg tablet 25 mg PO BEDTIME 01/03/23 02/11/24 Lactobacillus acidophilus 10 mg PO DAILY 01/24/24 01/24/24 acetaminophen 650 mg 650 mg PO Q6H PRN fever 01/24/24 01/24/24 tablet,extended release albuterol sulfate 2.5 mg/3 mL 2.5 mg inhalation Q4-6H PRN 01/24/24 01/24/24 (0.083 %) solution for nebulization Shortness Of Breath Or Wheezing amlodipine 5 mg tablet 5 mg PO QAM 01/24/24 02/11/24 aspirin 162.5 mg capsule,extended 162.5 mg PO DAILY 01/24/24 02/11/24 release 24 hr (Durlaza) azelastine 137 mcg (0.1 %) nasal 1 spray intranasal BID 01/24/24 01/24/24 spray baclofen 10 mg tablet 10 mg PO BID PRN muscle spasm 01/24/24 01/24/24 brimonidine 0.2 %-timolol 0.5 % 1 drp ophthalmic (eye) BID 01/24/24 01/24/24 eye drops (Combigan) celecoxib 200 mg capsule 200 mg PO BID 01/24/24 02/11/24 diclofenac sodium 1 % topical gel 2 g topical BID PRN Pain 01/24/24 01/24/24 docusate sodium 100 mg capsule 100 mg PO BID 01/24/24 01/24/24 famotidine 20 mg tablet 20 mg PO BEDTIME 01/24/24 02/11/24 fluticasone propionate 50 1 spray intranasal DAILY 01/24/24 01/24/24 mcg/actuation nasal spray,suspension latanoprost 0.005 % eye drops 1 drp ophthalmic (eye) QPM 01/24/24 01/24/24 clonazepam 0.5 mg tablet 0.5 mg PO BID 01/28/24 02/11/24 Previous Rx's ?Medication ?Instructions ?Recorded lorazepam 0.5 mg tablet (Ativan) 0.5 mg PO BEDTIME PRN 02/03/24 Anxiety/sleep #10 tabs azithromycin 250 mg tablet See Rx Instructions PO .COMPLEX #6 03/23/24 tabs benzonatate 200 mg capsule 200 mg PO TID PRN cough #15 caps 03/23/24 prednisone 20 mg tablet 40 mg (2 x 20 mg) PO DAILY #10 tabs 03/23/24 Allergies Allergy/AdvReac Type Severity Reaction Status Date / Time penicillin G [PENICILLIN G] Allergy Unknown HIVES Verified 06/30/24 15:06 diphenhydramine AdvReac Unknown Palpitation Verified 06/30/24 15:06 [From BENADRYL] s Review of Systems Review of Systems: All other systems are reviewed and are negative Constitutional: Reports as per HPI and Reports no additional constitutional complaints Eyes: Reports as per HPI and Reports no additional eye complaints Reports system reviewed and no additional complaints, except as documented Cardiovascular: Reports as per HPI and Reports no additional cardiovascular complaints Respiratory: Reports as per HPI and Reports no additional respiratory complaints Gastrointestinal: Reports as per HPI and Reports no additional gastrointestinal complaints Genitourinary: Reports no additional female genitourinary complaints Musculoskeletal: Reports no additional musculoskeletal complaints Skin/Breast: Reports system reviewed and no additional complaints, except as docu Psychiatric: Reports no additional psychiatric complaints Endocrine: Reports no additional endocrine complaints Hematologic/Lymphatic: Reports no additional hematologic/lymphatic complaints Allergic/Immunologic: Reports no additional allergic/immunologic complaints Reports system reviewed and no additional complaints, except as documented and Reports Abnormal speech present [facility] Past Medical History Medical History Lung collapse Nephrolithiasis Osteoarthritis Urinary retention Esophageal reflux Urinary hesitancy Bladder outlet obstruction Urinary frequency Nocturia Glaucoma Gastritis Prostate cancer Arthritis Asthma Surgical History History of hemorrhoidectomy (~04/02/13) History of total right hip replacement Social History Social History Alcohol intake: never Patient Tobacco Use Status: Never used Tobacco Smoked in Last 30 Days: No Use of substances other than those prescribed or required for medical reasons: No Advance Directives: No Advance Directives Information Provided: Yes Do you have a plan to hurt others: No Plan Physical Exam Vital Signs: Vital Signs: Last Vital Signs Temp 98.1 F 06/30/24 21:25 Pulse 62 06/30/24 21:25 Resp 13 06/30/24 21:25 BP 170/86 H 06/30/24 21:25 Pulse Ox 98 06/30/24 21:25 O2 Del Method Room Air 06/30/24 21:25 BMI result Body Mass Index 25.8 Vital signs have been reviewed and appear to be correct. Blood pressure elevated. Heart rate normal. Respiratory rate normal. Temperature normal. Oxygen saturation normal. Appearance: Alert. Oriented X3. No acute distress. Head: Normal external exam. Normocephalic. Atraumatic. No Kim signs noted. No raccoon eyes noted Eyes: PERRLA. EOMI. Conjunctiva and sclera normal. Eyelids normal. ENT: TM's Normal. Pharynx normal. Uvula midline. Moist mucous membranes. No trismus noted. No drooling noted. No muffled voice noted. Neck: Normal inspection. Neck supple. FROM. No adenopathy. Thyroid Normal. No meningeal signs. No neck mass noted. CVS: Normal heart rate and rhythm. Heart sound normal. No murmurs noted. Pulses normal throughout. Respiratory: No respiratory distress. Painless inspiration. Breath sounds normal. No wheezes/rales/rhonchi noted. Chest nontender. No accessory muscle usage noted or decreased air movement noted. Abdomen: Soft and nontender. Bowel sounds normal in all 4 quadrants. No distention noted. No organomegaly noted. No visible injury noted. Back: No CVA tenderness. Full range of motion noted. Skin: Skin warm and dry. Normal skin color. Normal skin turgor. No rashes/lesions/lacerations noted. Extremities: No lower extremity edema. Extremities exhibit normal range of motion. Extremities nontender. Neuro: Oriented X 3. Cranial nerve exam: II-XII are grossly intact No motor deficit. No sensory deficit. Reflexes normal. Course Course Course Narrative: This is a Rapid Medical Examination (RME) performed by Toby Hwang PA-C in triage. Full HPI, ROS, assessment and treatment plan per primary provider in the Main ED. 68 yo male presents to the ER for evaluation of 4 days of chest pain, headache, neck pain. pain intermittent and shooting in nature. it shoots from the chest to the left side of his neck and to the left shoulder. no SOB, diaphoresis, nausea. pain right now is 7/10. has a dry cough. Plan: EKG, labs, CXR, viral swab Reevaluation(s) Reevaluation #1: 68-year-old male with generalized body ache and viral syndrome symptoms, unremarkable blood workup, chest x-ray, EKG. Will reassure the patient use Tylenol/ ibuprofen if needed for pain and follow-up with PCP. Time: 23:19 Medications Administered Discontinued Medications Generic Name Dose Route Start Last Admin Trade Name Joseq PRN Reason Stop Dose Admin Acetaminophen 975 mg 06/30/24 22:00 06/30/24 22:08 Acetaminophen 325 Mg Tablet PO 06/30/24 22:01 975 mg ONCE ONE Administration Medical Decision Making Differential Diagnosis Differential Diagnoses: The differential diagnosis associated with the presentation includes ( hypertensive emergency, hypertensive urgency ACS, pneumonia, pneumothorax, pleural effusion.) Admission/Observation Consideration of admission/observation: Escalation of care including admission/observation considered Lab Data MDM Lab Attestation statement: I reviewed the patient's lab results. 06/30/24 14:59 06/30/24 14:59 Labs: Lab Results 06/30/24 06/30/24 06/30/24 Range/Units 14:59 17:17 21:00 WBC 3.3 L (4.8-10.8) X10*3/uL RBC 4.95 (4.60-5.80) X10*6/uL Hgb 15.2 (14.0-18.0) g/dl Hct 42.6 (42.0-52.0) % MCV 86.1 (80.0-98.0) fL MCH 30.7 (27.0-33.0) pg MCHC 35.7 (31.0-36.0) g/dl RDW 12.7 (11.0-16.0) % Plt Count 183 (160-400) X10*3/uL MPV 9.0 L (9.4-12.4) fL Immature Gran % (Auto) 0.0 (0.0-0.4) % Neut % (Auto) 22.4 L (45-73) % Lymph % (Auto) 59.6 H (20-40) % Pitkin % (Auto) 10.5 (2-11) % Eos % (Auto) 6.0 H (0-4) % Baso % (Auto) 1.5 (0-2) % Lymph # (Auto) 2.0 (1.2-4.9) X10*3/uL Pitkin # (Auto) 0.4 (0.1-1.2) X10*3/uL Eos # (Auto) 0.2 (0.0-0.4) X10*3/uL Baso # (Auto) 0.1 (0.0-0.2) X10*3/uL Abs Immat Gran (auto) 0.00 (0.00-0.03) X10*3/uL Absolute Neuts (auto) 0.8 L (2.0-8.3) x10*3/uL Absolute Nucleated RBC 0.000 (0.0-0.012) X10*3/uL Nucleated RBC % (auto) 0.0 (0.0-0.2) /100WBC Smear Tech's Comments VERIFIED Sodium 141 (135-145) mmol/L Potassium 4.1 (3.3-5.1) mmol/L Chloride 106 (96-108) mmol/L Carbon Dioxide 28 (22-29) mmol/L Anion Gap 11 L (12-20) BUN 11 (9-16) mg/dL Creatinine 0.76 (0.5-1.4) mg/dL Estim Creat Clear Calc 79.7 Estimated GFR > 60 Random Glucose 95 (60-115) mg/dL Calcium 9.2 (8.4-10.2) mg/dL Magnesium 1.9 (1.6-2.6) mg/dL Total Bilirubin 1.3 H (0.0-1.0) mg/dL Direct Bilirubin 0.4 (0.0-0.5) mg/dL AST 16 (5-37) U/L ALT 11 (0-40) U/L Alkaline Phosphatase 52 (39-117) U/L Troponin I High Sens < 2.7 < 2.7 (<3.5-35.0) ng/L Total Protein 6.7 (6.5-8.0) g/dL Albumin 4.0 (3.5-5.0) g/dL Influenza Type A (PCR) NEGATIVE (Negative) Influenza Type B (PCR) NEGATIVE (Negative) RSV RNA Qual (PCR) NEGATIVE (Negative) SARS-CoV-2 RNA (RT-PCR) NEGATIVE (Negative) Independent Interpretation I performed an independent interpretation of an: EKG ( Sinus bradycardia at 49 beats per minutes, no change from previous EKG.) and Plain X-Ray ( No acute intrathoracic pathology.) Radiology Impression Discussion of test interpretation with radiology: I have reviewed the radiologist's reading. Chronic Conditions Patient?s care impacted by: Hypertension Discharge Plan Discharge Clinical Impression: Generalized body aches Patient Disposition: Home, Self-Care Instructions: Noncardiac Chest Pain (ED) Prescriptions: No Action albuterol sulfate 90 mcg/actuation HFA aerosol inhaler 2 puff inhalation Q4-6H PRN (Reason: Shortness Of Breath Or Wheezing) loratadine 10 mg tablet 10 mg PO QAM trazodone 50 mg tablet 25 mg PO BEDTIME tamsulosin 0.4 mg capsule 0.4 mg PO QPM omeprazole 40 mg capsule,delayed release(DR/EC) 40 mg PO BID duloxetine 30 mg capsule,delayed release(DR/EC) 30 mg PO DAILY acetaminophen 650 mg tablet extended release 650 mg PO Q6H PRN (Reason: fever) celecoxib 200 mg capsule 200 mg PO BID albuterol sulfate 2.5 mg /3 mL (0.083 %) Solution For Nebulization 2.5 mg INHALATION Q4-6H PRN (Reason: Shortness Of Breath Or Wheezing) amlodipine 5 mg tablet 5 mg PO QAM baclofen 10 mg tablet 10 mg PO BID PRN (Reason: muscle spasm) azelastine 137 mcg (0.1 %) aerosol,spray 1 spray intranasal BID brimonidine-timolol [Combigan] 0.2-0.5 % Drops 1 drp OPHTHALMIC (EYE) BID Durlaza 162.5 mg Capsule,Extended Release 24hr 162.5 mg PO DAILY latanoprost 0.005 % Drops 1 drp OPHTHALMIC (EYE) QPM famotidine 20 mg tablet 20 mg PO BEDTIME docusate sodium 100 mg Capsule 100 mg PO BID Lactobacillus acidophilus Capsule 10 mg PO DAILY fluticasone propionate 50 mcg/actuation spray,suspension 1 spray intranasal DAILY diclofenac sodium 1 % Gel 2 g TOPICAL BID PRN (Reason: Pain) Rx Instructions: apply to single elbow, wrist or hand; for hand includes palm/fingers/back of hand clonazepam 0.5 mg tablet 0.5 mg PO BID lorazepam [Ativan] 0.5 mg tablet 0.5 mg PO BEDTIME PRN (Reason: Anxiety/sleep) Qty: 10 0RF azithromycin 250 mg tablet See Rx Instructions .ROUTE .COMPLEX Qty: 6 0RF Rx Instructions: For 250 mg dose pack: take 500 mg today (day 1), then 250 mg for 4 days (days 2-5) prednisone 20 mg tablet 40 mg PO DAILY Qty: 10 0RF benzonatate 200 mg capsule 200 mg PO TID PRN (Reason: cough) Qty: 15 0RF Referrals: Name,MD Gwyn [Primary Care Provider] - Print Language: Honduran
[2024-06-30 15:37] LABS: SLIDE REVIEW VERIFIED
[2024-06-30 15:41] LABS: Alanine Aminotransferase 11 U/L (0-40); Alkaline Phosphatase 52 U/L (39-117); Anion Gap 11 (12-20); Aspartate Amino Transferase 16 U/L (5-37); Bilirubin Direct 0.4 mg/dL (0.0-0.5); Bilirubin Total 1.3 mg/dL (0.0-1.0); Blood Urea Nitrogen 11 mg/dL (9-16); Calcium 9.2 mg/dL (8.4-10.2); Carbon Dioxide 28 mmol/L (22-29); Chloride 106 mmol/L (96-108); Creatinine Clr Calc Pharmacy 79.7; Estimated Glomerular Filt Rate > 60; Glucose Random 95 mg/dL (60-115); Magnesium 1.9 mg/dL (1.6-2.6); Potassium 4.1 mmol/L (3.3-5.1); Sodium 141 mmol/L (135-145); Total Protein 6.7 g/dL (6.5-8.0); Troponin-I High Sensitivity < 2.7 ng/L (<3.5-35.0)
[2024-06-30 18:00] LABS: Influenza A PCR NEGATIVE (Negative); Influenza B PCR NEGATIVE (Negative); Resp Syncy Virus RNA Qual PCR NEGATIVE (Negative); SARS COV2 PCR INHOUSE NEGATIVE (Negative)
[2024-06-30 19:40] VITALS: BP 156/79; PULSE 58; RESP 19; TEMP 36.8; O2SAT 98
[2024-06-30 21:25] VITALS: BP 170/86; PULSE 62; RESP 13; TEMP 36.7; O2SAT 98
[2024-06-30 21:46] LABS: Troponin-I High Sensitivity < 2.7 ng/L (<3.5-35.0)
[2024-06-30] MEDS: Acetaminophen 325 MG TABLET 975 MG PO (22:08)
--- NOTE | 2024-06-30 22:20 | PC.NURSE ---
Patient no longer has chest pain, c/o headache /, tylenol given, snacks given.
[2024-06-30 23:35] VITALS: BP 134/74; PULSE 60; RESP 20; TEMP -17.7; TEMP 0; O2SAT 98
== END 2024-06-30 23:37 | disposition home or self-care (01) ==
PROVIDERS: Physician Assistant; Emergency Provider Emergency Medicine; PCP Internal Medicine Geriatric Medicine
DX: R53.81 Other malaise (principal); Z03.818 Encounter for observation for suspected exposure to other biological agents ruled out; R07.9 Chest pain, unspecified; R05.9 Cough, unspecified; I10 Essential (primary) hypertension; J45.909 Unspecified asthma, uncomplicated; Z79.82 Long term (current) use of aspirin; Z79.899 Other long term (current) drug therapy
CPT/HCPCS: 0241U; 36415; 71046; 80048; 80076; 83735; 84484; 85025; 93005; 99283; 99285